=== PATIENT | male | born 1965 | race Caucasian/White ===

== ENCOUNTER 2019-08-21 00:41 | Inpatient (IN) ==
[2019-08-21] MEDS ORDERED: NS 1,000 ML IV ONE ×2 (01:00→03:07)
[2019-08-21] MEDS ORDERED: ATIVAN IV ONE (01:00)
[2019-08-21 02:15] LABS: URINE SOURCE CLEAN CATCH
[2019-08-21 02:22] LABS: BILIRUBIN URINE NEGATIVE (NEGATIVE); BLOOD URINE MODERATE (NEGATIVE); COLOR YELLOW; GLUCOSE URINE >1000 mg/dL (NEGATIVE); KETONE URINE 20 mg/dL (NEGATIVE); LEUKOCYTES URINE NEGATIVE (NEGATIVE); NITRITE URINE NEGATIVE (NEGATIVE); PH URINE 6.5; PROTEIN URINE 70 mg/dL (NEGATIVE); SP GRAVITY URINE 1.011; TURBIDITY URINE CLEAR (CLEAR); UROBILINOGEN URINE NORMAL (NORMAL)
[2019-08-21 02:24] LABS: UR EPITHELIAL CELLS <10 /HPF (<10); URINE BACTERIA NEGATIVE /HPF; URINE RBC 20-40 /HPF (<10); URINE WBC <10 /HPF (<10)
[2019-08-21 02:30] LABS: BASO# 0.02 X1000 (0.0-0.2); BASO% 0.2 % (0.0-0.8); EOS# 0.01 X1000 (0.0-0.7); EOS% 0.1 % (0.0-10.0); HEMATOCRIT 37.4 % (42.0-52.0); IMM GRAN# 0.02 X1000 (0.0-0.04); IMM GRAN% 0.2 % (0.0-0.5); LYMPH% 13.7 % (20.5-51.1); MCH 30.5 PG (27-31); MCHC 34.8 g/dL (33-37); MCV 87.8 FL (81-99); MONO# 1.14 X1000 (0.11-0.59); MONO% 9.8 % (1.7-9.3); MPV 9.3 FL (7.4-10.4); NEUT# 8.89 X1000 (1.4-6.5); PLT 248 X1000 (130-400); RBC 4.26 XMIL (4.7-6.1); RDW 11.9 % (11.5-14.5); WBC 11.68 X1000 (4.8-10.8)
[2019-08-21 02:34] LABS: INR 1.08; PROTIME 14.2 Seconds (11.0-16.0)
[2019-08-21 02:52] LABS: ESTIMATED GFR > 60
[2019-08-21 02:58] LABS: AGAP 25; ALB/GLOB RATIO 0.7; ALBUMIN 3.5 g/dL (3.5-5.0); ALKALINE PHOSPHATASE 255 U/L (32-122); BUN 4 mg/dL (8-22); CALCIUM 8.1 mg/dL (8.8-10.2); CHLORIDE 77 mmol/L (98-107); COSMO 250; CREATININE 0.7 mg/dL (0.7-1.2); GLUCOSE 289 mg/dL (70-104); GOT 69 U/L (10-34); GPT 30 U/L (10-44); LIPASE 19 U/L (13-60); POTASSIUM 3.8 mmol/L (3.5-5.1); TCO2 18 mmol/L (25-35); TOTAL BILIRUBIN 0.72 mg/dL (0.20-1.00); TOTAL PROTEIN 8.5 g/dL (6.3-8.3)
[2019-08-21 03:03] LABS: SODIUM 120 mmol/L (136-145)
[2019-08-21] MEDS ORDERED: HUMULIN R 100 UNIT in NS 99 ML IV ONE (03:56)
--- NOTE | 2019-08-21 05:06 | PROVIDER DOCUMENTATION ---
This chart was entered by Elsy Loja Scribe, acting as scribe for Audra Rodriguez MD. HPI-General Adult - General Stated Complaint: fall Time Seen by Provider: 08/21/19 00:47 Source: patient Allergies/Adverse Reactions: Patient Allergies Allergy/AdvReac Type Severity Reaction Status Date / Time No Known Allergies Allergy Verified 06/17/16 19:52 - History of Present Illness -Gen Adult Nature of Presenting Problems: pt is a 53 yowm that presents to er sts that he is an alcoholic and has had multiple falls, the most recent was yest and hit his head and ribs. pt has large healing bruise on left abd from fall a few days ago. pt sts he drinks 6-10 beers/day and last drink was this am and he feels like he is withdrawing. pt has hx of dm and htn. pt also c/o bladder/low abd pain. pt is a&ox3, answers questions appropriately but is shaky at bedside. denies loc. Location of Pain/Injury: reports: head, chest (ribs), upper extremity, abdomen Pain Radiation: reports: no radiation Severity: reports: mild Onset/Duration: reports: 24 hours ago Timing: reports: still present Context/Activities at Onset: reports: other Modifying Factors: improves with: nothing Review of Systems - Adult - REVIEW OF SYSTEMS - ADULT Constitutional: reports: no symptoms reported. denies: fever, fatique, night sweats Eyes: reports: no symptoms reported Ears, Nose, Mouth & Throat: reports: no symptoms reported Cardiovascular: reports: no symptoms reported Respiratory: reports: no symptoms reported Gastrointestinal: reports: see HPI, abdominal pain. denies: diarrhea, difficulty swallowing, frequent heartburn Genitourinary: reports: no symptoms reported Musculoskeletal: reports: see HPI, bone pain (rib pain), other (head pain). denies: frequent leg cramps, joint pain, joint swelling Integumentary: reports: no symptoms reported Neurological: reports: see HPI, loss of balance, other (shaky). denies: dizziness/vertigo, numbness, paresthesia, slurred speech, syncope Psychiatric: reports: see HPI, alcohol/drug dependence. denies: insomnia, panic attacks, suicidal thoughts Endocrine: reports: no symptoms reported Hematologic/Lymphatic: reports: no symptoms reported Allergic/Immunologic: reports: no symptoms reported All Other Systems: Reviewed and Negative Past History - Adult - PAST MEDICAL HISTORY-ADULT Review of Records: reports: Old Records Reviewed, Nursing Assessment Review, Medications Reviewed, Social history reviewed & non-contributory. Major Childhood Illnesses: reports: denies history Cardiovascular: reports: HTN Respiratory: reports: denies history Gastrointestinal: reports: denies history Obstetrical/Gynecological: reports: denies history Genitourinary: reports: denies history Musculoskeletal: reports: denies history Neurological: reports: Seizures/Epilepsy Endocrine/Immune: reports: Diabetes Other Conditions: reports: denies history - PRIOR SURGERIES/PROCEDURES Surgical/Procedure History: reports: orthopedic (extremity) - IMMUNIZATION STATUS Childhood Immunizations: See Nurse Assessment Flu Vaccine: See Nurse Assessment - FAMILY HISTORY Family History: reviewed, not pertinent - SOCIAL HISTORY Smoking: non-smoker Substance Use: alcohol Alcohol Use Frequency: every day Number of drinks per typical drinking period:: 5-10 drinks Physical Exam-General - PHYSICAL EXAM-ADULT Initial Vital Signs Reviewed: Yes - CONSTITUTIONAL General Appearance: alert, mild distress, other (tremulous and dishelved) - EYES Eyes: PERRL/EOMI, pink conjunctivae - HEAD, EARS, NOSE, MOUTH & THROAT HENMT: normocephalic/atraumatic, moist mucous membranes, normal ENT inspection - NECK Neck: non-tender, full range of motion, supple, normal inspection - RESPIRATORY Respiratory: chest non-tender, lungs clear, normal breath sounds - CARDIOVASCULAR Cardiovascular: normal peripheral pulses, regular rate, rhythm - GASTROINTESTINAL (ABDOMEN) Abdominal Exam: normal bowel sounds, soft, no organomegaly, no pulsatile mass, tenderness (to palp suprapubic), other (LLQ large healing bruise from prev fall) . 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 additional IVF given and insulin gtt started. Will admit for further evaluation and treatment. Discussed case with Dr. Rodriguez, Hospitalist who will see and admit pt.) - CT/MRI 1 CT Study: Head Impression: Normal (per radiologist read: "no acute intracranial findings") 2 CT Study: Abdomen, Pelvis Impression: Abnormal (per radiologist read: "heterogenous mostly hypodense mass within the prostate with bladder distention resulting in hydronephrosis, herterogenous sacrum neoplasm will require exclusion") Departure - Departure Date of Disposition Decision: 08/21/19 Time of Disposition Decision: 04:48 DIAGNOSIS: Alcoholic ketosis, Prostate mass, Hyponatremia Alcohol withdrawal Qualifiers: Complication of substance-induced condition: uncomplicated Qualified Code(s): F10.230 - Alcohol dependence with withdrawal, uncomplicated DKA (diabetic ketoacidoses) Qualifiers: Diabetes mellitus type: other specified (including JULIO) Diabetes mellitus complication detail: without coma Qualified Code(s): E13.10 - Other specified diabetes mellitus with ketoacidosis without coma Abdominal contusion Qualifiers: Encounter type: initial encounter Qualified Code(s): S30.1XXA - Contusion of abdominal wall, initial encounter Disposition: ADMITTED INPATIENT 09 Certified Medical Emergency: Emergent Condition: Fair - Critical Care Note This patient required my direct & personal management of CC.: No Attestation - Physician/ DERIC Attestation Patient care was provided by Advanced Practice Provider:: No The physician spent face to face time with patient:: Yes Advanced Practice Provider documentation review:: Supervising physician onsite and consulted in the evaluation and care of this patient. The physician did have a face to face encounter with the patient. This chart was documented by the indicated scribe, (Elsy Loja Scribe) and accurately reflects the services I performed and decisions made by me, Audra Rodriguez MD, as attested by the provider's signature.
[2019-08-21] MEDS ORDERED: ZOFRAN IV PRN ×2 (06:15→07:22)
[2019-08-21] MEDS ORDERED: POTASSIUM CHLORIDE 20% LIQUID PO PRN ×2 (06:15→07:22)
[2019-08-21] MEDS ORDERED: POTASSIUM CHLORIDE 20 MEQ/SWI 20 MEQ/100 ML IVPB IV PRN ×2 (06:15→07:22)
[2019-08-21] MEDS ORDERED: POTASSIUM CHLORIDE 40 MEQ/SWI 40 MEQ/100 ML IVPB IV PRN ×2 (06:15→07:22)
[2019-08-21] MEDS ORDERED: POTASSIUM CHLORIDE 10% LIQUID PO PRN (06:15)
[2019-08-21] MEDS ORDERED: D50W SYRINGE IV PRN ×2 (06:15→07:22)
[2019-08-21] MEDS ORDERED: MAGNESIUM SULFATE 2 GM/S.W.I. 2 GM/50 ML IVPB IV PRN (06:15)
[2019-08-21] MEDS ORDERED: NS 1,000 ML IV SCH (06:15)
[2019-08-21] MEDS ORDERED: SODIUM BICARBONATE 8.4% 100 MEQ in STERILE WATER INJ. 500 ML IV PRN (06:15)
[2019-08-21] MEDS ORDERED: SODIUM PHOSPHATE 30 MMOL in D5W 250 ML IV PRN (06:15)
[2019-08-21] MEDS ORDERED: D5 NS 1,000 ML IV SCH (06:15)
[2019-08-21] MEDS ORDERED: NS 1,000 ML ONE (06:20)
--- NOTE | 2019-08-21 06:26 | HISTORY AND PHYSICAL ---
PRIMARY CARE PHYSICIAN: Unknown. CHIEF COMPLAINT: Falling and not feeling well. HISTORY OF PRESENTING ILLNESS: A 53-year-old male with a history of chronic alcoholism, diabetes mellitus type 2, and hypertension, who had presented to emergency department with complaint of having multiple falls. He states that he usually drinks about 6 to 10 beers daily. His last drink was earlier in the morning. He states that he felt like he was having withdrawal symptoms. He was also complaining of lower abdominal pain. The patient was evaluated in the emergency department. He had laboratories drawn that did show possibility he had early DKA. He had elevated blood glucose, CO2 was low. He had ketones in the urine. Patient also had on imaging possibility of prostate mass. Due to his presenting symptoms, he will need admission for further management. The patient is a poor historian. However, he had denied any headache, fever, chills, chest pain, shortness of breath or any weight changes. He has complained of abdominal pain and not feeling well. PAST MEDICAL HISTORY: Include diabetes mellitus type 2 and hypertension. PAST SURGICAL HISTORY: None. ALLERGIES: No known drug allergies. CURRENT MEDICATIONS: She does not recall and the nursing staff will reconcile. SOCIAL HISTORY: No history of smoking. Admits to drinking alcohol daily. Denies any illicit drug use. FAMILY HISTORY: No history of coronary disease. REVIEW OF SYSTEMS: Fourteen point review of system as listed in HPI. Other systems negative. PHYSICAL EXAMINATION: GENERAL: Cooperative friendly male. He is resting more comfortably now. VITAL SIGNS: Pulse 121, respirations 22, and blood pressure 172/115. HEENT: Atraumatic, normocephalic. Extraocular movements are intact. PERRLA. NECK: No masses. CHEST: Clear to auscultation. CARDIOVASCULAR: Regular rate and rhythm. ABDOMEN: Soft. Bowel sounds has some suprapubic tenderness. EXTREMITIES: No edema. NEUROLOGIC: He is alert and oriented x3. : No bladder distention. SKIN: Warm. LABORATORIES AND STUDIES: Sodium 120, potassium 3.8, chloride 77, CO2 is 18. BUN is 4. Creatinine 0.7 glucose and 289. WBCs 11.68, hemoglobin 13.9, hematocrit 37.4, and platelets 248,000. Toxicology screen alcohol level of 248. ASSESSMENT: A 53-year-old male with a history of diabetes mellitus type 2 and hypertension, who had presented to emergency department due to complaint of frequent falls and not feeling well. He was evaluated in the emergency department. He was also complaining of abdominal discomfort. He had imaging done which did show the possibility of a prostate mass. Laboratories were consistent with early DKA. Subsequently, he will require admission for further management. 1. Suspected early DKA. 2. Possible alcohol withdrawals. 3. Abnormal CT showing prostate mass. 4. Diabetes mellitus type 2. 5. Hypertension. PLAN: 1. We will admit patient to ICU. 2. The patient already started on insulin drip per DKA protocol in the ED, and will continue that. 3. We will monitor for signs for withdrawal. 4. We will consult urology for evaluation of prostate mass. 5. Monitor blood pressure. Resume antihypertensive agent. 6. We will put patient on DVT prophylaxis with SCD's. 7. We will continue to follow and reassess and make further recommendation based on the patient's clinical course. cc: Socrates Rodriguez MD
--- NOTE | 2019-08-21 07:05 | Diag Imaging Result Doc PS360 ---
EXAM: CT HEAD W/O CONTRAST 08/21/2019 HISTORY: fall with alcohol abuse TECHNIQUE: This exam was performed using automated exposure control, adjustment of mA or kV according to patient size, and/or use of iterative reconstruction technique. COMMENT: There is a prominent cisterna magna. There are lacunae present in the right basal ganglia and both internal capsules. There is no evidence of bleed or abnormal extra-axial fluid collection. Compared to the previous examination of 06/24/2018 there has been no significant change. IMPRESSION: No evidence of acute intracranial disease. Electronically signed by Ashok Logan 08/21/2019 7:03 AM
[2019-08-21 07:07] LABS: ESTIMATED GFR > 60
[2019-08-21 07:08] LABS: AGAP 25; BUN 5 mg/dL (8-22); CALCIUM 8.1 mg/dL (8.8-10.2); CHLORIDE 81 mmol/L (98-107); COSMO 248; CREATININE 0.8 mg/dL (0.7-1.2); GLUCOSE 146 mg/dL (70-104); MAGNESIUM 1.5 mg/dL (1.5-2.7); PHOSPHORUS 2.2 mg/dL (2.7-4.5); POTASSIUM 3.6 mmol/L (3.5-5.1); SODIUM 123 mmol/L (136-145); TCO2 17 mmol/L (25-35)
[2019-08-21] MEDS ORDERED: HUMULIN R 100 UNIT in NS 100 ML IV SCH (07:22)
[2019-08-21] MEDS ORDERED: HUMULIN R IV ONE (07:22)
[2019-08-21] MEDS ORDERED: ATIVAN IV PRN (07:22)
[2019-08-21 08:10] LABS: URINE SOURCE CATH
[2019-08-21] MEDS: LIBRIUM PO SCH ×2 (08:13→15:02)
[2019-08-21] MEDS: D5 NS 1,000 ML IV PRN ×2 (08:14→15:02)
[2019-08-21] MEDS: REGLAN IV SCH ×3 (08:14→20:07)
--- NOTE | 2019-08-21 08:29 | Diag Imaging Result Doc PS360 ---
EXAM: CT ABD/PELVIS W/IV CONT ONLY 08/21/2019 HISTORY: fall with LLQ brusing and pain TECHNIQUE: This exam was performed using automated exposure control, adjustment of mA or kV according to patient size, and/or use of iterative reconstruction technique. COMMENT: There are no previous studies available for comparison. The liver is hypodense and slightly enlarged. The spleen is not enlarged. The adrenal glands are not enlarged. The aorta is not distended. There is no evidence of nephrolithiasis. There is bilateral hydronephrosis. The gallbladder is somewhat distended. There are no apparent gallstones. The pancreas is unremarkable. The aorta is not distended. The small bowel is not distended. There is some fluid along the anterior Gerota's fascia bilaterally. There is some diverticulosis in the descending colon. Pelvis: The urinary bladder is distended. There is no evidence of ureterolithiasis. There are abnormal fluid collections in the prostate particularly on the left where there is apparent cystic change measuring up to 2.7 cm. This may represent an abscess. The CT density is less than 6 Hounsfield units. There is stranding in the perirectal fat and presacral space. There is a small amount of free fluid in the lower portions of the paracolic gutters. There is sclerosis and coarsened trabecular pattern in the sacrum. No evidence of acute fracture is present. IMPRESSION: 1. Urinary tract obstruction, presumably at the level of the prostate. This may be related to prostatitis with abscess. 2. Hepatic steatosis versus steatohepatitis. 3. Bony changes in the sacrum which may be related to Paget's disease of bone. Electronically signed by Ashok Logan 08/21/2019 8:27 AM
[2019-08-21 08:32] LABS: ALLEN TEST YES; BLOOD TYPE ARTERIAL; METHB 0.9 % (0.0-1.5); MODALITY ROOM AIR; O2(CT) 17.2 mL/dL (15.0-23.0); PCO2(98.6) 25 mmHg (35-45); PO2(98.6) 79 mmHg (60-100); SAMPLE BLOOD; SAO2 98.3 % (95.0-100.0); THB 12.8 g/dL (11.5-17.4); pH(98.6) 7.45 (7.35-7.45)
[2019-08-21 08:35] LABS: BILIRUBIN URINE NEGATIVE (NEGATIVE); BLOOD URINE MODERATE (NEGATIVE); COLOR YELLOW; GLUCOSE URINE >1000 mg/dL (NEGATIVE); KETONE URINE 20 mg/dL (NEGATIVE); LEUKOCYTES URINE NEGATIVE (NEGATIVE); NITRITE URINE NEGATIVE (NEGATIVE); PH URINE 6.5; PROTEIN URINE 70 mg/dL (NEGATIVE); SP GRAVITY URINE 1.024; TURBIDITY URINE CLEAR (CLEAR); UR EPITHELIAL CELLS <10 /HPF (<10); URINE BACTERIA NEGATIVE /HPF; URINE RBC 20-40 /HPF (<10); URINE WBC <10 /HPF (<10); UROBILINOGEN URINE NORMAL (NORMAL)
[2019-08-21] MEDS ORDERED: HYDROCORTISONE 1% CREAM TOP PRN (08:42)
[2019-08-21] MEDS ORDERED: CALMOSEPTINE OINTMENT TOP PRN (08:42)
[2019-08-21] MEDS: NS 1,000 ML IV SCH ×3 (08:50→20:53)
[2019-08-21] MEDS: POTASSIUM CHLORIDE 10% LIQUID PO PRN ×3 (09:32→15:02)
[2019-08-21] MEDS: LOPRESSOR IV SCH ×3 (09:32→20:29)
[2019-08-21] MEDS: MAGNESIUM SULFATE 2 GM/S.W.I. 2 GM/50 ML IVPB IV PRN (09:32)
[2019-08-21] MEDS: MORPHINE IV PRN ×4 (11:09→23:36)
[2019-08-21] MEDS: TYLENOL PO PRN ×2 (11:33→20:42)
[2019-08-21 12:25] LABS: AGAP 23; BUN 6 mg/dL (8-22); CALCIUM 9.2 mg/dL (8.8-10.2); CHLORIDE 85 mmol/L (98-107); COSMO 260; CREATININE 0.8 mg/dL (0.7-1.2); ESTIMATED GFR > 60; GLUCOSE 259 mg/dL (70-104); MAGNESIUM 2.3 mg/dL (1.5-2.7); PHOSPHORUS 2.8 mg/dL (2.7-4.5); POTASSIUM 4.4 mmol/L (3.5-5.1); SODIUM 126 mmol/L (136-145); TCO2 18 mmol/L (25-35)
[2019-08-21 14:52] LABS: ESTIMATED GFR > 60
[2019-08-21 14:53] LABS: AGAP 17; BUN 7 mg/dL (8-22); CALCIUM 9.1 mg/dL (8.8-10.2); CHLORIDE 88 mmol/L (98-107); COSMO 261; CREATININE 0.9 mg/dL (0.7-1.2); GLUCOSE 306 mg/dL (70-104); MAGNESIUM 2.1 mg/dL (1.5-2.7); POTASSIUM 4.5 mmol/L (3.5-5.1); SODIUM 125 mmol/L (136-145); TCO2 20 mmol/L (25-35)
[2019-08-21] MEDS: APRESOLINE IV PRN (17:27)
[2019-08-21] MEDS: VASOTEC IV SCH (17:27)
[2019-08-21] MEDS: D5 NS 1,000 ML IV SCH ×2 (17:29→23:36)
[2019-08-21] MEDS: ATIVAN IV PRN (18:26)
[2019-08-21 19:05] LABS: AGAP 15; BUN 6 mg/dL (8-22); CALCIUM 9.5 mg/dL (8.8-10.2); CHLORIDE 91 mmol/L (98-107); COSMO 263; CREATININE 0.7 mg/dL (0.7-1.2); ESTIMATED GFR > 60; GLUCOSE 208 mg/dL (70-104); MAGNESIUM 1.9 mg/dL (1.5-2.7); POTASSIUM 4.1 mmol/L (3.5-5.1); SODIUM 129 mmol/L (136-145); TCO2 23 mmol/L (25-35)
[2019-08-21 22:57] LABS: AGAP 13; BUN 6 mg/dL (8-22); CALCIUM 9.2 mg/dL (8.8-10.2); CHLORIDE 94 mmol/L (98-107); COSMO 264; CREATININE 0.7 mg/dL (0.7-1.2); ESTIMATED GFR > 60; GLUCOSE 225 mg/dL (70-104); MAGNESIUM 1.7 mg/dL (1.5-2.7); PHOSPHORUS 1.7 mg/dL (2.7-4.5); POTASSIUM 3.6 mmol/L (3.5-5.1); SODIUM 129 mmol/L (136-145); TCO2 22 mmol/L (25-35)
[2019-08-22] MEDS: LIBRIUM PO SCH ×3 (00:31→17:33)
[2019-08-22 01:55] LABS: AGAP 15; BUN 6 mg/dL (8-22); CALCIUM 9.4 mg/dL (8.8-10.2); CHLORIDE 91 mmol/L (98-107); COSMO 265; CREATININE 0.7 mg/dL (0.7-1.2); ESTIMATED GFR > 60; GLUCOSE 213 mg/dL (70-104); MAGNESIUM 1.7 mg/dL (1.5-2.7); PHOSPHORUS 2.2 mg/dL (2.7-4.5); POTASSIUM 3.5 mmol/L (3.5-5.1); SODIUM 130 mmol/L (136-145); TCO2 24 mmol/L (25-35)
[2019-08-22] MEDS: LOPRESSOR IV SCH ×2 (02:14→08:03)
[2019-08-22] MEDS: REGLAN IV SCH ×2 (02:14→07:32)
[2019-08-22] MEDS: MAGNESIUM SULFATE 2 GM/S.W.I. 2 GM/50 ML IVPB IV PRN (03:06)
[2019-08-22] MEDS: NS 1,000 ML IV SCH ×4 (03:25→19:45)
[2019-08-22] MEDS: APRESOLINE IV PRN (03:31)
[2019-08-22] MEDS: VASOTEC IV SCH (05:13)
[2019-08-22] MEDS: D5 NS 1,000 ML IV SCH ×2 (05:14→10:03)
[2019-08-22] MEDS: MORPHINE IV PRN ×3 (05:31→20:44)
[2019-08-22 06:45] LABS: AGAP 17; BUN 5 mg/dL (8-22); CALCIUM 9.3 mg/dL (8.8-10.2); CHLORIDE 91 mmol/L (98-107); COSMO 266; CREATININE 0.6 mg/dL (0.7-1.2); ESTIMATED GFR > 60; GLUCOSE 212 mg/dL (70-104); MAGNESIUM 2.1 mg/dL (1.5-2.7); PHOSPHORUS 2.3 mg/dL (2.7-4.5); POTASSIUM 3.3 mmol/L (3.5-5.1); SODIUM 131 mmol/L (136-145); TCO2 23 mmol/L (25-35)
[2019-08-22] MEDS: POTASSIUM CHLORIDE 10% LIQUID PO PRN ×2 (07:32→11:55)
[2019-08-22 10:38] LABS: AGAP 15; BUN 5 mg/dL (8-22); CALCIUM 9.3 mg/dL (8.8-10.2); CHLORIDE 91 mmol/L (98-107); COSMO 265; CREATININE 0.6 mg/dL (0.7-1.2); ESTIMATED GFR > 60; GLUCOSE 222 mg/dL (70-104); MAGNESIUM 1.9 mg/dL (1.5-2.7); PHOSPHORUS 3.2 mg/dL (2.7-4.5); POTASSIUM 3.6 mmol/L (3.5-5.1); SODIUM 130 mmol/L (136-145); TCO2 24 mmol/L (25-35)
[2019-08-22] MEDS ORDERED: CATAPRES PO ONE (12:14)
[2019-08-22] MEDS ORDERED: LANTUS INSULIN SUBQ ONE (12:33)
--- NOTE | 2019-08-22 12:57 | PROGRESS NOTE ---
DATE: 08/22/2019 SUBJECTIVE: The patient is confused, but seems to be doing okay. No major complaints. OBJECTIVE: Vital Signs: Blood pressure is 149/85, heart rate of 95, respiratory rate 20, temperature 98.9 degrees, saturating 95% on room air. General: He has got plethora in his face. Overall seems to be tired and weak. Cardiovascular: Regular rate and rhythm. Pulmonary: Bilateral breath sounds. Clear to auscultation. GI: Soft, nontender, nondistended. Bowel sounds are positive. LABORATORY DATA: Sodium is 130 today. Sugar is 222, but the gap is only 15, and the bicarb is 24. I feel like his gap is closed at this point. PROBLEM LIST: 1. Diabetic ketoacidosis with apparently new-onset diabetes. We will continue treatment, take him off the drip, switch him to Lantus, and follow clinically. 2. Prostate enlargement with possible early abscess. He is not on any antibiotics, and Urology has been consulted. 3. Alcohol withdrawal syndrome. We will continue to follow closely. He is on a Librium taper. Seems to be stable at this point. Continue to follow. Supplement electrolytes, and monitor. 4. Disposition. I think if he is stable off blood sugars, we should be able to get him to the step-down unit. 5. Hypertension, which is uncontrolled, possibly related to withdrawal, but we will continue to follow. He is on a Librium taper. Will probably give him a banana bag, and monitor closely. cc: Richmond Gao MD
[2019-08-22] MEDS: PRINIVIL PO SCH (14:20)
[2019-08-22] MEDS: ZOSYN 3.375 GM in NS 50 ML IV SCH ×2 (14:21→19:45)
[2019-08-22] MEDS: HUMULIN R SUBQ SCH ×2 (16:20→20:44)
[2019-08-22] MEDS: FLOMAX PO SCH (20:44)
[2019-08-22] MEDS: CATAPRES PO SCH (20:44)
--- NOTE | 2019-08-22 22:29 | CONSULTATION ---
DATE OF CONSULTATION: 08/22/2019 REQUESTING PHYSICIAN: Richmond Gao MD, hospitalist service. REASON FOR CONSULTATION: Prostate mass. HISTORY OF PRESENT ILLNESS: A 53-year-old male who was admitted with frequent falls, feeling unwell, with a diagnosis of diabetic ketoacidosis as well as alcohol withdrawal. In the process of workup, he had a CT scan of the abdomen and pelvis on 08/21/2019, which revealed bilateral hydronephrosis to the level of the prostate and prostate appearance with a couple of fluid collections concerning for abscess. The patient reports occasional hesitancy and weak stream as well as nocturia x1-2 for months prior to the presentation. For approximately a week to two prior to presentation, he reports increased frequency of urination as well as weaker urinary stream. He currently feels comfortable, as he has Kelly catheter draining light pink urine without clots. He denies having seen a urologist. He denies history of UTIs or prostatitis. He denies gross hematuria, dysuria or flank pain prior to presentation. PAST MEDICAL HISTORY: Diabetes mellitus, hypertension. PAST SURGICAL HISTORY: None. ALLERGIES: No known drug allergies. MEDICATIONS: Home medications: None on file. Current medications of pertinence include insulin and Zosyn. SOCIAL HISTORY: Denies smoking or illicit drugs. He drinks alcohol daily. FAMILY HISTORY: Negative for prostate cancer. REVIEW OF SYSTEMS: Reviewed and 12 systems negative except as per the HPI. PHYSICAL EXAMINATION: T 98.5 degrees, P 99, BP 127/76. General: No acute distress. Pleasant male.HEENT: Normocephalic, atraumatic. Cardiovascular: Regular rate and rhythm. Pulmonary: Bilateral breath sounds. Abdomen soft, nontender, nondistended. Back: No CVA tenderness. : Circumcised phallus, normal meatus. Kelly catheter in place draining pink colored urine. Testes descended bilaterally, atrophic. No masses present. No evidence of inguinal hernias noted bilaterally. Perineum with structural integrity intact. Digital rectal examination revealing smooth approximately 40 g prostate, mildly tender to palpation but not boggy, and no discrete nodules noted. Dermatologic: No obvious skin rashes. Neurologic: Alert and oriented x3. Psychiatric: Appropriate mood and affect. LABORATORY DATA: White cell count is 12,000. Creatinine is 0.6. Urinalysis is negative for bacteria. DIAGNOSTIC DATA: Pertinent images: CT abdomen and pelvis per HPI. ASSESSMENT AND PLAN: A 53-year-old male who presented with diabetic ketoacidosis, alcohol withdrawal and hypertension. In the process he was found to have urinary retention with bilateral hydronephrosis, and imaging by CT scan concerning for possible prostatic abscess. Upon examination, I did not appreciate fluctuance consistent with abscess. He was appropriately tender. I have discussed with the patient that he would benefit from antibiotic for 4 weeks that would cover prostatic pathogens which would be the same as urinary tract pathogens. I have discussed with him that he would benefit from Flomax 0.4 mg twice a day. It is certainly reasonable to perform voiding trial and remove Kelly catheter prior to him leaving. We can also recheck renal ultrasound in approximately 3 days to see if his hydronephrosis has improved. I have discussed with him that if he passes voiding trial and does well, a month of antibiotics may help his prostatic issues, and if he does not improve or not able to pass voiding trial, we would consider transurethral resection and drainage of the abscess. PLAN: 1. Flomax 0.4 mg twice a day. 2. He is currently on Zosyn. When primary team is comfortable, it is okay to transition to oral antibiotics that would cover urinary pathogens, such as Bactrim, fluoroquinolone or doxycycline. 3. Okay to try a voiding trial in 2-3 days for recommended renal ultrasound in 3 days to document resolution and improvement in hydronephrosis. 4. If he does well from his diabetes, hypertension and alcohol withdrawal standpoint, and ready for discharge I would plan on seeing him in clinic in 4 weeks with digital rectal examination, postvoid residual check and PSA check. Thank you for the consultation. cc: Daniel Arthur MD
[2019-08-23] MEDS: LIBRIUM PO SCH ×4 (00:16→20:57)
[2019-08-23] MEDS: MORPHINE IV PRN ×5 (00:17→17:31)
[2019-08-23] MEDS: ZOSYN 3.375 GM in NS 50 ML IV SCH ×4 (01:38→20:32)
[2019-08-23] MEDS: TYLENOL PO PRN ×2 (03:36→11:34)
[2019-08-23 06:30] LABS: BASO# 0.03 X1000 (0.0-0.2); BASO% 0.5 % (0.0-0.8); EOS# 0.09 X1000 (0.0-0.7); EOS% 1.5 % (0.0-10.0); HEMATOCRIT 35.4 % (42.0-52.0); HEMOGLOBIN 11.7 g/dL (14.0-18.0); LYMPH# 1.13 X1000 (1.2-3.4); LYMPH% 18.8 % (20.5-51.1); MCH 30.6 PG (27-31); MCHC 33.1 g/dL (33-37); MCV 92.7 FL (81-99); MONO# 0.67 X1000 (0.11-0.59); MONO% 11.2 % (1.7-9.3); NEUT# 4.08 X1000 (1.4-6.5); PLT 113 X1000 (130-400); RBC 3.82 XMIL (4.7-6.1); RDW 12.4 % (11.5-14.5)
[2019-08-23] MEDS: HUMULIN R SUBQ SCH ×2 (06:33→11:28)
[2019-08-23 07:04] LABS: AGAP 17; BUN 6 mg/dL (8-22); CALCIUM 8.9 mg/dL (8.8-10.2); CHLORIDE 90 mmol/L (98-107); COSMO 262; CREATININE 0.6 mg/dL (0.7-1.2); ESTIMATED GFR > 60; GLUCOSE 227 mg/dL (70-104); POTASSIUM 3.4 mmol/L (3.5-5.1); SODIUM 128 mmol/L (136-145); TCO2 21 mmol/L (25-35)
[2019-08-23 07:23] LABS: HEMOGLOBIN A1C 10.1 % (4.8-6.0)
[2019-08-23] MEDS: CATAPRES PO SCH ×3 (08:03→17:04)
[2019-08-23] MEDS: PRINIVIL PO SCH (08:03)
[2019-08-23] MEDS: FLOMAX PO SCH ×2 (08:04→20:58)
[2019-08-23] MEDS: NS 1,000 ML IV SCH (08:18)
[2019-08-23] MEDS: ATIVAN IV PRN ×3 (08:35→22:09)
[2019-08-23] MEDS ORDERED: LANTUS INSULIN SUBQ SCH (09:00)
[2019-08-23] MEDS ORDERED: LANTUS INSULIN SUBQ ONE (09:54)
[2019-08-23] MEDS ORDERED: VANCOMYCIN IV PER PHARMACY MISC SCH (11:45)
--- NOTE | 2019-08-23 12:47 | Diag Imaging Result Doc PS360 ---
CHEST-PORTABLE - 08/23/2019 INDICATION: fever COMPARISON: 07/23/2018 FINDINGS: Lung volumes are critically low with nonspecific bibasilar atelectasis. IMPRESSION: Nondiagnostic exam. Electronically signed by Jacinto Avila 08/23/2019 12:45 PM
[2019-08-23] MEDS: VANCOMYCIN 2,000 MG in NS 500 ML IV SCH (12:54)
--- NOTE | 2019-08-23 14:11 | PROGRESS NOTE ---
DATE: 08/23/2019 SUBJECTIVE: The patient has no major complaints. OBJECTIVE: Blood pressure 180/127, heart rate 133, respiratory rate of 34, temperature was a 100.2 degrees. PROBLEM LIST: 1. Diabetic ketoacidosis that has resolved. He is on Lantus and metformin. Sugars are still very high. A1c is 10. We will continue to adjust medications. I have added metformin to his regimen. 2. Prostatitis. He is on Zosyn. Urology is not recommending any intervention at this point, but he does have persistent fevers. I have added vancomycin just for more coverage. 3. Alcohol withdrawal syndrome. He is still very tremulous. He is still very tachycardic. He is still very hypertensive. We will continue Librium and follow closely. 4. Uncontrolled hypertension. I have increased his clonidine probably need to increase his lisinopril, as well and follow closely. I have initiated a banana bag as well. DISPOSITION: Pending his clinical status, he is probably safe enough to go to the [facility] once his blood pressure stabilizes a bit more. cc: Richmond Gao MD
[2019-08-23] MEDS: HUMALOG SUBQ SCH ×2 (16:50→20:33)
[2019-08-23] MEDS: THIAMINE 100 MG, FOLIC ACID 1 MG, M.V.I.-12 10 ML in NS 500 ML IV SCH (17:03)
[2019-08-23] MEDS: GLUCOPHAGE PO SCH (17:03)
[2019-08-23] MEDS: LOPRESSOR IV PRN (18:18)
[2019-08-23 21:13] LABS: BE 1.6 mmoll (-3.0-3.0); BLOOD TYPE ARTERIAL; METHB 1.3 % (0.0-1.5); O2HB 91.6 % (95.0-99.0); PCO2(98.6) 27 mmHg (35-45); PO2(98.6) 58 mmHg (60-100); SAMPLE BLOOD; SAO2 94.9 % (95.0-100.0); THB 13.2 g/dL (11.5-17.4); pH(98.6) 7.54 (7.35-7.45)
[2019-08-23 21:14] LABS: ALLEN TEST YES; MODALITY CANNULA
[2019-08-23] MEDS: TYLENOL PR ONE (21:38)
[2019-08-23 22:19] LABS: BASO# 0.02 X1000 (0.0-0.2); BASO% 0.3 % (0.0-0.8); HEMATOCRIT 38.7 % (42.0-52.0); HEMOGLOBIN 12.8 g/dL (14.0-18.0); IMM GRAN# 0.03 X1000 (0.0-0.04); IMM GRAN% 0.4 % (0.0-0.5); LYMPH# 0.68 X1000 (1.2-3.4); LYMPH% 9.7 % (20.5-51.1); MCH 30.6 PG (27-31); MCHC 33.1 g/dL (33-37); MCV 92.6 FL (81-99); MONO# 0.43 X1000 (0.11-0.59); MONO% 6.2 % (1.7-9.3); MPV 9.8 FL (7.4-10.4); NEUT# 5.83 X1000 (1.4-6.5); NEUT% 83.4 % (42.2-75.2); PLT 141 X1000 (130-400); RBC 4.18 XMIL (4.7-6.1); RDW 12.5 % (11.5-14.5); WBC 6.99 X1000 (4.8-10.8)
[2019-08-23 22:27] LABS: INR 1.37; PROTIME 17.1 Seconds (11.0-16.0)
[2019-08-23 22:28] LABS: PTT 37.9 Seconds (22.3-41.8)
[2019-08-23 22:57] LABS: URINE SOURCE CATH
[2019-08-23 23:02] LABS: AGAP 17; ALB/GLOB RATIO 0.8; ALKALINE PHOSPHATASE 189 U/L (32-122); BUN 9 mg/dL (8-22); CALCIUM 8.6 mg/dL (8.8-10.2); CHLORIDE 90 mmol/L (98-107); CK PROFILE 73 U/L (24-204); COSMO 263; CREATININE 0.8 mg/dL (0.7-1.2); ESTIMATED GFR > 60; GLUCOSE 193 mg/dL (70-104); GOT 93 U/L (10-34); GPT 32 U/L (10-44); POTASSIUM 3.1 mmol/L (3.5-5.1); SODIUM 129 mmol/L (136-145); TCO2 22 mmol/L (25-35); TOTAL BILIRUBIN 1.13 mg/dL (0.20-1.00); TOTAL PROTEIN 6.9 g/dL (6.3-8.3)
[2019-08-23 23:20] LABS: BILIRUBIN URINE NEGATIVE (NEGATIVE); BLOOD URINE LARGE (NEGATIVE); COLOR YELLOW; GLUCOSE URINE TRACE mg/dL (NEGATIVE); KETONE URINE TRACE mg/dL (NEGATIVE); TURBIDITY URINE HAZY (CLEAR)
[2019-08-23 23:21] LABS: LEUKOCYTES URINE NEGATIVE (NEGATIVE); NITRITE URINE NEGATIVE (NEGATIVE); PROTEIN URINE 70 mg/dL (NEGATIVE); UROBILINOGEN URINE NORMAL (NORMAL)
[2019-08-23 23:22] LABS: UR EPITHELIAL CELLS <10 /HPF (<10); URINE BACTERIA NEGATIVE /HPF
[2019-08-23 23:35] LABS: URINE CASTS NONE SEEN; URINE CRYSTALS NONE SEEN; URINE SMALL ROUND CELLS NONE SEEN; URINE YEAST PRESENT
[2019-08-24] MEDS: LOPRESSOR IV PRN ×2 (00:15→08:04)
[2019-08-24] MEDS: ATIVAN IV PRN ×2 (00:19→02:25)
[2019-08-24] MEDS: VANCOMYCIN 2,000 MG in NS 500 ML IV SCH ×2 (00:54→13:32)
[2019-08-24] MEDS: MORPHINE IV PRN ×5 (00:55→19:56)
[2019-08-24] MEDS: ZOSYN 3.375 GM in NS 50 ML IV SCH ×2 (01:44→08:00)
[2019-08-24] MEDS: LIBRIUM PO SCH ×2 (02:25→08:12)
[2019-08-24] MEDS: OFIRMEV 1000 MG/ISOTONIC SOLN 1,000 MG/100 ML BOTTLE IV PRN ×2 (02:57→09:17)
[2019-08-24 04:27] LABS: BASO# 0.02 X1000 (0.0-0.2); BASO% 0.3 % (0.0-0.8); HEMATOCRIT 35.6 % (42.0-52.0); HEMOGLOBIN 11.7 g/dL (14.0-18.0); LYMPH# 0.25 X1000 (1.2-3.4); LYMPH% 3.6 % (20.5-51.1); MCH 30.7 PG (27-31); MCHC 32.9 g/dL (33-37); MCV 93.4 FL (81-99); MONO% 7.1 % (1.7-9.3); MPV 9.9 FL (7.4-10.4); NEUT# 6.24 X1000 (1.4-6.5); PLT 110 X1000 (130-400); RBC 3.81 XMIL (4.7-6.1); RDW 12.6 % (11.5-14.5); WBC 7.01 X1000 (4.8-10.8)
[2019-08-24 04:53] LABS: LYMPHS 3 % (21-51); MONO 8 % (1-9); SEGS 89 % (42-75)
[2019-08-24 05:39] LABS: AGAP 18; BUN 11 mg/dL (8-22); CHLORIDE 95 mmol/L (98-107); COSMO 267; CREATININE 0.7 mg/dL (0.7-1.2); ESTIMATED GFR > 60; GLUCOSE 157 mg/dL (70-104); POTASSIUM 2.6 mmol/L (3.5-5.1); SODIUM 132 mmol/L (136-145); TCO2 19 mmol/L (25-35)
[2019-08-24] MEDS ORDERED: MAGNESIUM SULFATE 4 GM/S.W.I. 4 GM/100 ML IVPB IV ONE (05:49)
[2019-08-24] MEDS ORDERED: NS 50 ML ONE (06:27)
[2019-08-24] MEDS: HUMALOG SUBQ SCH ×4 (06:30→20:41)
--- NOTE | 2019-08-24 07:07 | Diag Imaging Result Doc PS360 ---
EXAM: CHEST-PORTABLE 08/23/2019 HISTORY: poss sepsis TECHNIQUE: AP portable upright at 2214 COMMENT: The inspiration is suboptimal. There is subsegmental atelectasis over the right hemidiaphragm which was also present on 08/23/2019. Otherwise are has been no significant change. IMPRESSION: Right basilar atelectasis. Electronically signed by Ashok Logan 08/24/2019 7:05 AM
[2019-08-24] MEDS ORDERED: POTASSIUM CHLORIDE 60 MEQ in NS 500 ML IV ONE (07:35)
[2019-08-24] MEDS: PRINIVIL PO SCH (08:01)
[2019-08-24] MEDS: CATAPRES PO SCH (08:01)
[2019-08-24] MEDS: FLOMAX PO SCH ×2 (08:01→20:41)
[2019-08-24] MEDS: GLUCOPHAGE PO SCH ×2 (08:12→16:53)
[2019-08-24] MEDS: LANTUS INSULIN SUBQ SCH (08:12)
[2019-08-24] MEDS ORDERED: LIORESAL PO SCH (09:00)
[2019-08-24] MEDS ORDERED: NS 1,000 ML IV ONE ×2 (10:10→14:59)
[2019-08-24] MEDS: NS 1,000 ML IV SCH ×2 (10:22→19:37)
[2019-08-24] MEDS: MERREM 1 GM in NS 50 ML IV SCH ×2 (10:26→19:34)
[2019-08-24] MEDS: LEVOPHED 8 MG in D5 1/2 NS 250 ML IV SCH ×2 (10:30→20:56)
--- NOTE | 2019-08-24 12:00 | PROGRESS NOTE ---
DATE: 08/24/2019 SUBJECTIVE: Patient is definitely more confused. Apparently, it was felt that the liver was causing this so that medication has been held since last night. Upon my examination, he continues to be lethargic, does not answer any questions just to painful stimuli. OBJECTIVE: Vital Signs: Temperature 101.8 degrees, heart rate 80, respiratory rate 17 blood pressure 104/64. O2 saturation 98% on 4 L nasal cannula. General: This is a chronically ill- appearing 53-year-old male, lying in bed in no acute distress. Cardiovascular: S1, S2 heard. No murmurs, gallops, or rubs. Regular rate and rhythm. Respiratory: Clear bilaterally to auscultation. No work of breathing or using accessory muscles. Abdomen: Soft. Nontender to palpation. Bowel sounds present. No organomegaly. Extremities: No clubbing, cyanosis, or edema. Peripheral pulses present in both legs. Neurological: Patient is alert and oriented x3 moves. No clubbing cyanosis or edema. Peripheral pulses present in both legs. The patient is lethargic. Apparently, he moves all 4 extremities. LABORATORY DATA: White cell count 7.01, hemoglobin 11.7, hematocrit 35.6 and platelets 110,000. BMP that reveals potassium. 2.6 sodium 132, normal renal function. Glucose 157. Magnesium 1.0. ASSESSMENT AND PLAN: 1. Diabetic ketoacidosis. That condition is resolved. Currently, this patient is on Lantus and metformin. We will continue with sliding scale insulin as well. 2. Prostatitis. The patient has been on Zosyn for the last few days for pneumonia, but because patient is still having persistent fever, I am going to change Zosyn for meropenem. 3. Alcohol withdrawal syndrome. The patient has been very sleepy with Levaquin that he has been receiving so at this point, that has been stopped, and will start baclofen as well once he is more stable. 4. Hypertension now. With the current medication, it is much better controlled. We will continue with same management. 5. Disposition. At this point, we will continue to monitor this patient closely in intensive care unit. cc: MD NIKKI Multani
[2019-08-24] MEDS: LIORESAL PO SCH ×2 (14:25→22:25)
[2019-08-24] MEDS: THIAMINE 100 MG, FOLIC ACID 1 MG, M.V.I.-12 10 ML in NS 500 ML IV SCH ×2 (16:06→16:47)
--- NOTE | 2019-08-24 21:29 | Diag Imaging Result Doc PS360 ---
EXAM: CT THORAX W/CONTRAST 08/24/2019 HISTORY: pneumonia TECHNIQUE: This exam was performed using automated exposure control, adjustment of mA or kV according to patient size, and/or use of iterative reconstruction technique. COMMENT: There are bilateral pleural effusions. There is atelectasis in the lower lobes particularly the right lower lobe. This was not present at the time the abdominal study of 08/21/2019. There our no previous thoracic studies. There is ascites which was not present at the time the previous study. There are calcifications in the left anterior descending coronary artery. The visualized skeleton is intact. IMPRESSION: There is atelectasis or pneumonia in the right lower lobe and atelectasis in the left posterior costophrenic sulcus. Pleural effusions and ascites. Electronically signed by Ashok Logan 08/24/2019 9:27 PM
[2019-08-25] MEDS: OFIRMEV 1000 MG/ISOTONIC SOLN 1,000 MG/100 ML BOTTLE IV PRN ×3 (00:17→21:55)
[2019-08-25] MEDS: VANCOMYCIN 2,000 MG in NS 500 ML IV SCH (01:00)
[2019-08-25] MEDS: MERREM 1 GM in NS 50 ML IV SCH ×2 (02:08→11:07)
[2019-08-25] MEDS: NS 1,000 ML IV SCH ×2 (03:17→07:21)
[2019-08-25] MEDS: MORPHINE IV PRN (04:10)
[2019-08-25] MEDS: BLISTEX MEDICATED BERRY LIP BALM TOP PRN (05:38)
[2019-08-25 05:56] LABS: BASO# 0.02 X1000 (0.0-0.2); BASO% 0.2 % (0.0-0.8); EOS# 0.03 X1000 (0.0-0.7); EOS% 0.3 % (0.0-10.0); HEMATOCRIT 40.7 % (42.0-52.0); HEMOGLOBIN 13.1 g/dL (14.0-18.0); IMM GRAN# 0.19 X1000 (0.0-0.04); LYMPH# 1.45 X1000 (1.2-3.4); LYMPH% 15.1 % (20.5-51.1); MCH 30.3 PG (27-31); MCHC 32.2 g/dL (33-37); MCV 94.2 FL (81-99); MONO# 1.29 X1000 (0.11-0.59); MONO% 13.4 % (1.7-9.3); MPV 10.5 FL (7.4-10.4); NEUT# 6.63 X1000 (1.4-6.5); PLT 138 X1000 (130-400); RBC 4.32 XMIL (4.7-6.1); RDW 13.1 % (11.5-14.5); WBC 9.61 X1000 (4.8-10.8)
[2019-08-25] MEDS: LOPRESSOR IV PRN (06:06)
[2019-08-25] MEDS: LIORESAL PO SCH ×3 (06:07→21:11)
[2019-08-25] MEDS: HUMALOG SUBQ SCH ×4 (06:07→21:08)
[2019-08-25 06:10] LABS: ALBUMIN 2.3 g/dL (3.5-5.0); CALCIUM 8.1 mg/dL (8.8-10.2); CREATININE 1.8 mg/dL (0.7-1.2); MAGNESIUM 2.1 mg/dL (1.5-2.7); PHOSPHORUS 5.3 mg/dL (2.7-4.5); POTASSIUM 3.6 mmol/L (3.5-5.1)
[2019-08-25] MEDS: ATIVAN IV PRN ×2 (06:24→21:09)
[2019-08-25 06:58] LABS: LYMPHS 18 % (21-51); MONO 13 % (1-9); SEGS 69 % (42-75)
[2019-08-25] MEDS: LANTUS INSULIN SUBQ SCH (08:37)
[2019-08-25] MEDS: FLOMAX PO SCH ×2 (08:48→21:14)
[2019-08-25] MEDS: GLUCOPHAGE PO SCH (08:48)
[2019-08-25] MEDS ORDERED: CLINIMIX E 4.25%-5% SOLUTION 1,000 ML IV SCH (10:00)
[2019-08-25] MEDS: LIPOSYN 20% 250 ML IV SCH (11:06)
--- NOTE | 2019-08-25 11:49 | PROGRESS NOTE ---
DATE: 08/25/2019 SUBJECTIVE: The patient is a little bit less confused today. He is awake. He reports that he is feeling very cold. Denies any chills. Reports fevers. No acute issues noted as per nursing staff overnight. OBJECTIVE: Vital Signs: Temperature 98 degrees, heart rate 138, respiratory rate 22, blood pressure 125/66 O2 saturation 97% on 4 L nasal cannula. General: This is a chronically ill- appearing 53-year-old male lying in bed in no acute distress. Very shaky and febrile. Cardiovascular: S1, S2 heard. Tachycardic but no murmurs, gallops, or rubs noted. Respiratory: Some coarse breath sounds noted in the right pulmonary base. Patient is not using any accessory muscles or having work of breathing. Abdomen: Soft. Nontender to palpation. Bowel sounds present. No organomegaly. Extremities: No clubbing, cyanosis, or edema. Peripheral pulses are present in both legs. Neurological: Patient is a little bit more awake today in comparing with yesterday. He answered basic questions. He follows basic commands. He moves all 4 extremities spontaneously. LABORATORY DATA: White cell count 9.61, hemoglobin 13.1, hematocrit 40.7 and platelets 138,000. Sodium 132, potassium 3.6, creatinine 1.8, BUN 25, with magnesium 2.1 and phosphorus 5.3. ASSESSMENT AND PLAN: 1. Diabetic ketoacidosis. That condition is resolved. Patient is on Lantus and sliding scale insulin. Because of his acute renal failure noted in his labs, metformin will be stopped. Actually, he has not had these medications for the last 24 hours because he was not able to take anything by mouth. 2. Prostatitis versus prostate abscess. The patient is going to be taken to OR as per Urology. The patient is very sick and became septic. The blood cultures revealed MRSE bacteremia. The patient is on vancomycin but because of the renal dysfunction, we are going to consult Dr. Camargo. Most likely, we will change to daptomycin. He is already on Merrem 3. Acute kidney injury. During the last 48 hours, patient has been having low urine output. His renal function today is 1.8. The in's and out's in the last 24 hours indicates 295 mL of urine in the last 24 hours. At this point, we are going to consult renal, and we will see what they think. 4. Alcohol withdrawal syndrome. Patient has been on the Librium but, this medication has been stopped yesterday because this patient was very sleepy. Instead, we are providing baclofen for this patient. Apparently, he is tolerating them very well. He is more awake today. 5. Hypertension. Actually, the patient has low blood pressure so we started him on normal saline 150 mL per hour. We will continue with the same management. 6. MRSE bacteremia. As we mentioned before, the patient is on vancomycin. We may need to change this medication considering his worsening renal failure and oliguria. We will see what ID Dr. Jagjit Camargo has to say. 7. Right lower lobe atelectasis versus pneumonia. Patient is on antibiotics as above. The patient also has ascites. Patient has history of chronic alcoholism. We will continue to monitor. 7. Disposition. The patient is going to be taken to OR this afternoon. The patient is very sick. We will continue to monitor. cc: Cristo Henry MD MTDD
[2019-08-25] MEDS: CUBICIN 600 MG in NS 100 ML IV SCH (15:08)
[2019-08-25] MEDS: ZYVOX 600 MG/D5W 600 MG/300 ML IVPB IV SCH (16:09)
--- NOTE | 2019-08-25 17:37 | PROGRESS NOTE ---
DATE: 08/25/2019 SUBJECTIVE: Mr. Gauthier is resting in bed on rounds. He did not communicate back to me upon several inquiries. OBJECTIVE: Vital Signs: T 101 degrees, P 135, BP 114/82. General: Noncommunicating male in no apparent distress. Abdomen: Nontender, nondistended. Genitourinary: Kelly catheter in place with straw-colored urine. PERTINENT LABORATORY DATA: White cell count of 10,000. Creatinine is 1.8 up from 0.7. His urine culture from 08/23/2019 showing no growth. Urine culture from 08/21/2019 showed no growth. ASSESSMENT/PLAN: 53-year-old male, admitted with diabetic ketoacidosis and alcohol withdrawal with CT imaging revealing concern for prostatic abscess. Upon my original exam, he did not have evidence of boggy prostate concerning for prostatitis or abscess. I have discussed the patient with Dr. Holley over the phone and we at 1st felt that his prostate was the most likely reason for him having spiked fevers up to 105. I actually had him on the schedule today for cystoscopy with transurethral resection of prostatic abscess. I was subsequently contacted by Dr. Camargo who evaluated the patient. He gave examined him as well and agreed with me that there was no obvious evidence of fluctuance on the digital rectal examination. He does have evidence of pneumonia by CT scan. Me and Dr. Camargo agreed that he has other reasons for fevers then prostatic abscess. Hence, I have elected to cancel the case at this time while Mr. Gauthier gets more stable. PLAN: 1. Continue broad-spectrum antibiotics. 2. Keep Kelly catheter gravity drainage for now. 3. We will follow the patient clinically. cc: Daniel Arthur MD
--- NOTE | 2019-08-25 17:54 | INFECTIOUS DISEASE CONSULT REP ---
DATE: 08/25/2019 CONCLUSION: Patient has a methicillin-resistant Staphylococcus aureus. I think this arose from a methicillin-resistant Staphylococcus aureus pneumonia. I doubt that it is coming from the urinary tract for a couple of reasons. One, on exam the patient's prostate does not seem to be tender or fluctuant. Two, the patient's urine cultures negative. His CT scan though did bring up the possibility of prostatitis or prostate abscess, another reason that I think the methicillin- resistant Staphylococcus aureus bacteremia arose from the lung and not from the genitourinary area because, in my experience, it has been very unusual to see Staphylococcus aureus urinary tract infection or Staphylococcus aureus prostate infection. RECOMMENDATIONS: I agree with discontinuing vancomycin because the patient's creatinine is going up. I have put the patient on daptomycin to treat the bacteremia and Zyvox to treat the possible methicillin-resistant Staphylococcus aureus pneumonia. DISCUSSION: The patient is unable provide a history. He is delirious. According to the information in the computer, the patient came in, falling over and not feeling good. He developed diabetic ketoacidosis. The patient's CBC shows a white count of 9610, hemoglobin 13.1, and platelet count 138,000. Creatinine is 1.8. GFR is 39. Chest x-ray shows bibasilar atelectasis/pneumonia. CT scan of the abdomen and pelvis shows urinary tract obstruction, possibly secondary to prostatitis or prostate abscess. CT scan of the head showed no acute disease. PAST MEDICAL HISTORY: Positive for diabetes mellitus and hypertension. PAST SURGICAL HISTORY: None. DRUG ALLERGIES: None known. MEDICATIONS: There are there are no medications taken at home listed currently. SOCIAL HISTORY: The patient is an alcoholic. He has no history of smoking or using illicit drugs. FAMILY HISTORY: No history of coronary artery disease. REVIEW OF SYSTEMS: Unable to be obtained. PHYSICAL EXAMINATION: Vital Signs: Temperature is 101.4 degrees, pulse 103, respirations 18, blood pressure 96/66. General: This is an ill-appearing, middle-aged male. He is delirious. Head/eyes/ears/nose/throat: He does not have any drainage coming from his nose or ears. I did not get a good look into his mouth. His face was flushing. His face was erythematous. Neck: No meningismus. Lungs: Clear to auscultation. Cardiovascular: Heart rate is regular. Abdomen: Soft and not tender. Rectal Exam: The prostate was flat. It was not fluctuant and it did not seem to be tender. Neurologic: The patient is delirious. He did not respond to verbal requests. The patient was not having a tremor. Thank you for the consult. cc: Jagjit Camargo MD
[2019-08-25] MEDS: THIAMINE 100 MG, FOLIC ACID 1 MG, M.V.I.-12 10 ML in NS 500 ML IV SCH (18:25)
[2019-08-25] MEDS: CLINIMIX E 4.25%-5% SOLUTION 1,000 ML IV SCH ×2 (18:30→21:57)
[2019-08-25] MEDS: DUONEB (A & A) INH SCH ×2 (22:09→23:18)
--- NOTE | 2019-08-25 22:21 | NEPHROLOGY CONSULTATION ---
DATE: 08/25/2019 REASON FOR CONSULTATION: Acute kidney injury. HISTORY OF PRESENT ILLNESS: Mr. Gauthier is a 53-year-old man with alcoholism, diabetes and obesity. He came to the hospital because of DKA and evidence of sepsis. He has been evaluated by Urology for possible prostate abscess. He has also been in the ICU receiving aggressive multidisciplinary care for sepsis. In this context, he has been dealing with significant hypotension that has required vasopressor support. His antibiotics have included Zyvox and Cubicin. He is also receiving Clinimix and Liposyn. In this context he required CT of the chest yesterday which included IV contrast. He had normal renal function with creatinine 0.7 as recently as yesterday, today 1.8. Urine output has also dropped off in the last 24 hours. PAST MEDICAL HISTORY: As above. MEDICATIONS: Reviewed as listed. ALLERGIES: None. SOCIAL HISTORY: As above. FAMILY HISTORY: Noncontributory. REVIEW OF SYSTEMS: Noncontributory. PHYSICAL EXAMINATION: Blood pressure 138/79, heart rate 113, respirations 15. Afebrile. Generally comatose, hard to arouse. I did not get any words from him. Conjunctivae are pink. Oropharynx not examined. Neck is supple. The neck veins are not appreciated. PMI not palpable. Heart is regular and tachycardic. Lungs have equal breath sounds with some Kussmaul breathing, no crackles. Abdomen is soft. Decreased bowel sounds. No palpable organomegaly or masses. Extremities edema 3+. No clubbing or cyanosis. IMPRESSION AND PLAN: Acute kidney injury. Likely acute tubular necrosis in the context of hypotension, intravenous contrast, sepsis. He does not meet criteria for dialysis. He is in positive fluid balance by 9 L. I will attempt to minimize his IV fluids. Antibiotic doses are appropriate. No further changes. He is at high risk for requiring renal replacement therapy before recovery. cc: Marco Hemphill MD
[2019-08-26] MEDS: DUONEB (A & A) INH SCH ×6 (03:10→23:09)
[2019-08-26] MEDS: ZYVOX 600 MG/D5W 600 MG/300 ML IVPB IV SCH ×2 (04:30→17:28)
[2019-08-26 05:55] LABS: ALLEN TEST YES; BE -7.5 mmoll (-3.0-3.0); BLOOD TYPE ARTERIAL; HCO3-(ACT) 19.1 mmoll (20.0-26.0); METHB 0.3 % (0.0-1.5); MODALITY CANNULA; O2(CT) 15.7 mL/dL (15.0-23.0); O2HB 96.4 % (95.0-99.0); PCO2(98.6) 46 mmHg (35-45); PO2(98.6) 85 mmHg (60-100); SAMPLE BLOOD; SAO2 99.1 % (95.0-100.0); THB 11.5 g/dL (11.5-17.4); pH(98.6) 7.24 (7.35-7.45)
[2019-08-26] MEDS: LIORESAL PO SCH ×3 (06:11→21:36)
[2019-08-26 06:16] LABS: BASO# 0.01 X1000 (0.0-0.2); BASO% 0.1 % (0.0-0.8); EOS# 0.06 X1000 (0.0-0.7); EOS% 0.7 % (0.0-10.0); HEMATOCRIT 34.6 % (42.0-52.0); HEMOGLOBIN 11.2 g/dL (14.0-18.0); IMM GRAN# 0.07 X1000 (0.0-0.04); IMM GRAN% 0.9 % (0.0-0.5); LYMPH# 1.35 X1000 (1.2-3.4); LYMPH% 16.5 % (20.5-51.1); MCH 30.5 PG (27-31); MCHC 32.4 g/dL (33-37); MCV 94.3 FL (81-99); MONO% 14.6 % (1.7-9.3); MPV 10.6 FL (7.4-10.4); NEUT# 5.51 X1000 (1.4-6.5); NEUT% 67.2 % (42.2-75.2); PLT 172 X1000 (130-400); RBC 3.67 XMIL (4.7-6.1); RDW 13.1 % (11.5-14.5)
[2019-08-26] MEDS: HUMALOG SUBQ SCH ×4 (06:44→20:16)
--- NOTE | 2019-08-26 07:28 | Diag Imaging Result Doc PS360 ---
CHEST-PORTABLE - 08/26/2019 INDICATION: PNA,corse lung sound,AMS COMPARISON: 08/23/2019 FINDINGS: Lung volumes are critically low with worsening nonspecific central atelectasis or infiltrates. There is cardiomegaly. Stable right hemidiaphragm elevation. No large pleural effusion. IMPRESSION: Lower lung volumes. Worsening central infiltrates or atelectasis. Electronically signed by Jacinto Avila 08/26/2019 7:26 AM
[2019-08-26] MEDS: LIPOSYN 20% 250 ML IV SCH (07:39)
[2019-08-26 08:22] LABS: ALBUMIN 1.9 g/dL (3.5-5.0); CALCIUM 8.1 mg/dL (8.8-10.2); CREATININE 3.3 mg/dL (0.7-1.2); MAGNESIUM 2.3 mg/dL (1.5-2.7); PHOSPHORUS 5.2 mg/dL (2.7-4.5); POTASSIUM 4.3 mmol/L (3.5-5.1)
[2019-08-26 09:38] LABS: ALB/GLOB RATIO 0.5; DIRECT BILIRUBIN 0.6 mg/dL (0.00-0.20); TOTAL BILIRUBIN 0.91 mg/dL (0.20-1.00); TOTAL PROTEIN 6.3 g/dL (6.3-8.3)
[2019-08-26] MEDS: LANTUS INSULIN SUBQ SCH (10:40)
[2019-08-26] MEDS: FLOMAX PO SCH ×2 (11:31→20:07)
--- NOTE | 2019-08-26 11:41 | PROGRESS NOTE ---
DATE: 08/26/2019 SUBJECTIVE: Mr. Gauthier was admitted on 08/21/2019. He has no primary care physician that we know of. A 53-year-old with history of chronic alcoholism, diabetes mellitus type 2, hypertension, presented to the emergency department with complaint of having multiple falls. States he usually drinks about 6 to 10 beers a day. Last drink was early in the morning; states that he felt like he was having withdrawal symptoms. Also complaining of abdominal pain. Patient evaluated in the emergency department. Laboratories did show possibility of early DKA, and he had elevated blood glucose. CO2 was low. Ketones in the urine. Patient also had imaging with possibility of prostate mass. Due to his presenting symptoms, he will need admission for further management. ADMISSION DIAGNOSES: 1. Suspected early diabetic ketoacidosis. 2. Possible alcohol withdrawal. 3. Normal CT showing questionable prostate mass. 4. Diabetes mellitus type 2. 5. Hypertension. He had Urology consultation per Dr. Arthur and felt he had diabetic ketoacidosis, alcohol withdrawal and hypertension. He had some urinary retention with bilateral hydronephrosis imaged on CT scan, possible prostatic abscess. Upon examination, I did not appreciate any fluctuance consistent with abscess and so continued antibiotic coverage. He was on Zosyn and wanted to try voiding trial and got a renal ultrasound. CT of the chest done 08/24, atelectasis or pneumonia in the right lower lobe, atelectasis in the left posterior costophrenic sulcus, post pleural effusions and ascites appreciated. Infectious Disease was following. The patient had methicillin- resistant Staphylococcus aureus which arose from a methicillin-resistant Staphylococcus aureus pneumonia. I doubt it is coming from urinary tract infection, so prostate did not seem to be tender or fluctuant. Urine cultures have been negative. CT of the abdomen, brought up the possibility of prostatitis, prostatic abscess. He is lethargic. Apparently was lethargic yesterday. Today, he is very lethargic as well. OBJECTIVE: Vital Signs: He remains afebrile, temperature 98.8 degrees, pulse 100 respirations 14. Lungs: Lungs are clear anterolateral. Cardiovascular exam: Regular rhythm and rate without murmur or S3. Abdomen: Abdomen is soft. Skin: Skin is warm and dry. ASSESSMENT AND PLAN: 1. Admitted with diabetic ketoacidosis and alcohol withdrawal symptoms. 2. CT imaging revealing concern for prostatic abscess. On original exam did not have evidence of boggy prostate, concerning for prostatitis or abscess. At first they thought the prostate was most likely he reason for transurethral resection, but he has spiked fevers of 105, and so they scheduled him for cystoscopy with transurethral resection of prostatic abscess. Dr. Camargo evaluated him and agreed that there was no obvious fluctuance on digital exam. 3. He had evidence of pneumonia and felt that the bacteremia was from the pneumonia. So, we are treating him for pneumonia bacteremia. 4. Nephrology is following for acute kidney injury, likely acute tubular necrosis because of intravenous contrast in the face of hypotension. Does not meet criteria for dialysis. Watching his creatinine and electrolytes. 5. He is still very lethargic. His pupils are reactive, but it is nonresponsive, even to pain. I will repeat another CT of his head and probably get one of his abdomen and pelvis while we are there. LABORATORY DATA: Today, white count 8200, hematocrit is 34, platelet count 172,000. We will make sure he is on thiamine, and I am going to check a B 12, folate, T4 and TSH. We will check an AM Cortisol level and magnesium and phosphorus and calcium. Lastly, diabetes mellitus. His blood sugars appear under pretty good control. REVIEW OF HIS ORDERS: He is on Clinimix 50 mL an hour. He is on daptomycin; he is getting 600 mg q. 24 hours. Flomax 0.4 mg b.i.d., linezolid 600 mg IV q. 12 hours. He is on baclofen 20 mg p.o. q. 8 hours. cc: Ulises Spicer MD
--- NOTE | 2019-08-26 16:34 | ECHO REPORT ---
ORDER DATE: 08/26/2019 INTERPRETING PHYSICIAN: Dr. Fletcher Carpenter ECHOCARDIOGRAPHIC MEASUREMENTS: 1. Interventricular septum: 1.4 cm. 2. Posterior wall: 1.1 cm. 3. Diastolic diameter: 5.0 cm. 4. Left atrium: 3.6 cm. 5. Aortic root: 3.4 cm. SUMMARY OF THE 2-DIMENSIONAL IMAGIN. Aortic valve leaflets were trileaflet. 2. Pulmonic valve not well visualized. 3. Mitral valve was normal. 4. Tricuspid valve was normal. 5. There is mild mitral regurgitation. 6. Peak velocity across the aortic valve less than 2 m/sec. There is no aortic stenosis or regurgitation. 7. Mild tricuspid regurgitation. Peak velocity across the tricuspid valve was 2.6 m/sec. 8. Normal left ventricular cavity size. Estimated ejection fraction of 55%. 9. Technically suboptimal study. Poor acoustic window. 10. Anterior echo-free space suggestive of pericardial fat pad noted. There is no pericardial effusion or obvious intracardiac mass or thrombus seen. 11. If concern of endocarditis is present, would recommend a transesophageal echocardiogram if clinically indicated. cc: MD Marco Roche MD
--- NOTE | 2019-08-26 17:02 | Diag Imaging Result Doc PS360 ---
CT HEAD W/O CONTRAST - 08/26/2019 INDICATION: lethargy COMPARISON: 08/21/2019 FINDINGS: There is no acute disease or change from prior. IMPRESSION: No acute disease or change from prior. This exam was performed using automated exposure control, adjustment of mA or kV according to patient size, and/or use of iterative reconstruction technique Electronically signed by Jacinto Avila 08/26/2019 5:00 PM
--- NOTE | 2019-08-26 17:16 | NEPHROLOGY PROGRESS NOTE ---
DATE: 08/26/2019 SUBJECTIVE: He is really not responsive to verbal and tactile stimuli. OBJECTIVE: Vital Signs: Blood pressure 135/90, heart rate 100, respirations 13, T-max 101 degrees. General: As above. Skin is warm and dry. Conjunctivae are pink. Neck: Neck veins are not distended. Heart: Regular and tachycardic. Lungs: Equal. No crackles. Abdomen: Soft, nontender. Decreased bowel sounds. Extremities: Minimal edema. IMPRESSION: Acute kidney injury. Acute tubular necrosis. Urine output moderate at 700 mL in the last 24 hours. He does not meet criteria for dialysis today but is at high risk for requiring dialysis in the next 24 to 48 hours. Worsening metabolic acidosis. Overlying respiratory acidosis that is adversely impacting his pH. May require intubation. cc: Marco Hemphill MD
[2019-08-26] MEDS: CUBICIN 600 MG in NS 100 ML IV SCH (17:27)
[2019-08-26] MEDS: CLINIMIX E 4.25%-5% SOLUTION 1,000 ML IV SCH (17:29)
--- NOTE | 2019-08-26 17:29 | Diag Imaging Result Doc PS360 ---
CT ABDOMEN/PELVIS W/O CONTRAST - 08/26/2019 INDICATION: lethargy, infection COMPARISON: 08/21/2019 FINDINGS: There are small bilateral pleural effusions. There is cardiomegaly. There is some ill-defined infiltrate in the lung bases which may be pulmonary edema or pneumonia. There is significant body wall edema. There is a Kelly catheter in the urinary bladder. There is significant urinary bladder wall thickening. There is a small amount of ascites. No bowel obstruction or inflammation. The liver is nodular concerning for cirrhosis. Otherwise, abdominal organs are grossly normal. IMPRESSION: Urinary bladder wall thickening suggesting cystitis. Infiltrate in the lung bases bilaterally right greater than left. Small bilateral pleural effusions. Ascites and body wall edema. This exam was performed using automated exposure control, adjustment of mA or kV according to patient size, and/or use of iterative reconstruction technique Electronically signed by Jacinto Avila 08/26/2019 5:26 PM
[2019-08-27] MEDS: ATIVAN IV PRN (02:38)
[2019-08-27] MEDS: DUONEB (A & A) INH SCH ×6 (03:15→22:41)
[2019-08-27] MEDS: MORPHINE IV PRN ×2 (03:38→18:13)
[2019-08-27] MEDS: LOPRESSOR IV PRN ×3 (04:07→18:13)
[2019-08-27] MEDS: ZYVOX 600 MG/D5W 600 MG/300 ML IVPB IV SCH ×2 (04:31→16:18)
[2019-08-27] MEDS: LIORESAL PO SCH ×3 (05:25→21:54)
[2019-08-27 06:15] LABS: CALCIUM 8.5 mg/dL (8.8-10.2); CREATININE 2.7 mg/dL (0.7-1.2); PHOSPHORUS 3.6 mg/dL (2.7-4.5)
[2019-08-27 06:24] LABS: C REACTIVE PROT QUANT 130.78 mg/L (0.00-5.00); MAGNESIUM 2.2 mg/dL (1.5-2.7)
[2019-08-27] MEDS: HUMALOG SUBQ SCH ×5 (06:36→20:53)
[2019-08-27 06:57] LABS: TSH 3.56 uIUmL (0.27-4.20)
[2019-08-27 07:01] LABS: FREE T4 0.68 ng/dL (0.93-1.70)
--- NOTE | 2019-08-27 08:18 | PROGRESS NOTE ---
DATE: 08/27/2019 SUBJECTIVE: Mr. Gauthier apparently did wake up a little bit and did talk some. He looks like he is sleeping. He looks comfortable. He remains afebrile. He is not having any tremor or shaking. OBJECTIVE: Vital Signs: Temp 98 degrees, pulse 100, respirations 11, his blood pressures have been 171/110, 139/92, 155/96, 186/113. HEENT: Pupils are equal and round. Lungs: Clear in all lung waters. Cardiovascular: Regular rhythm and rate without murmur or S3. Urine output is 4200 mL. ASSESSMENT AND PLAN: 1. Acute kidney injury, acute tubular necrosis. Urine output is moderate. His volume status and electrolytes I think are stable. He does have worsening metabolic acidosis. Chemistries this morning: Sodium 135, potassium 3.0, chloride 101, BUN is 46, creatinine 2.7, and his bicarbonate actually has improved. 2. Repeat CT of the head and abdomen, did not see any new pathology. He is very lethargic, maybe a little better, starting to wake up some. Suspect some alcohol withdrawal, but he is a week out now, and should be seeing improvement. 3. He had evidence of pneumonia, and I feel that the bacteremia is from his pneumonia. Continue present antibiotics. 4. He was admitted with diabetic ketoacidosis and alcohol withdrawal. This appears to have improved, so hopefully he will wake up some today. He is on Clinimix at 50 mL an hour, he is getting daptomycin 600 mg intravenous every 24 hours. He is on Lantus insulin 20 units subcutaneously daily. He is getting Flomax 0.4 mg b.i.d. and linezolid 600 mg intravenously every 12 hours. cc: Ulises Spicer MD
[2019-08-27 08:46] LABS: BASO# 0.01 X1000 (0.0-0.2); BASO% 0.2 % (0.0-0.8); EOS# 0.12 X1000 (0.0-0.7); HEMATOCRIT 34.3 % (42.0-52.0); HEMOGLOBIN 11.4 g/dL (14.0-18.0); IMM GRAN# 0.04 X1000 (0.0-0.04); IMM GRAN% 0.7 % (0.0-0.5); LYMPH# 1.33 X1000 (1.2-3.4); LYMPH% 22.5 % (20.5-51.1); MCH 30.4 PG (27-31); MCHC 33.2 g/dL (33-37); MCV 91.5 FL (81-99); MONO# 1.32 X1000 (0.11-0.59); MONO% 22.4 % (1.7-9.3); MPV 10.2 FL (7.4-10.4); NEUT# 3.08 X1000 (1.4-6.5); NEUT% 52.2 % (42.2-75.2); PLT 217 X1000 (130-400); RBC 3.75 XMIL (4.7-6.1); RDW 12.8 % (11.5-14.5)
[2019-08-27] MEDS: LIPOSYN 20% 250 ML IV SCH (08:49)
[2019-08-27] MEDS: CLINIMIX E 4.25%-5% SOLUTION 1,000 ML IV SCH ×3 (08:50→12:03)
[2019-08-27] MEDS: LANTUS INSULIN SUBQ SCH (08:50)
[2019-08-27] MEDS: FLOMAX PO SCH ×2 (08:50→20:13)
[2019-08-27 09:17] LABS: ANISOCYTOSIS 1+; EOS 2 % (1-10); LYMPHS 24 % (21-51); MONO 17 % (1-9); SEGS 57 % (42-75)
[2019-08-27 09:55] LABS: SED RATE 77 mm/hr (0-15)
[2019-08-27] MEDS: CUBICIN 600 MG in NS 100 ML IV SCH (16:05)
[2019-08-28] MEDS: ATIVAN IV PRN ×3 (01:05→21:57)
[2019-08-28] MEDS: HUMALOG SUBQ SCH ×6 (02:11→20:33)
[2019-08-28] MEDS: DUONEB (A & A) INH SCH ×6 (03:13→23:41)
[2019-08-28] MEDS: ZYVOX 600 MG/D5W 600 MG/300 ML IVPB IV SCH ×2 (05:18→16:00)
[2019-08-28] MEDS: MORPHINE IV PRN ×3 (05:39→23:24)
[2019-08-28] MEDS: CLINIMIX E 4.25%-5% SOLUTION 1,000 ML IV SCH (06:09)
[2019-08-28 06:10] LABS: BASO# 0.03 X1000 (0.0-0.2); BASO% 0.4 % (0.0-0.8); EOS# 0.46 X1000 (0.0-0.7); EOS% 6.4 % (0.0-10.0); HEMATOCRIT 36.2 % (42.0-52.0); HEMOGLOBIN 12.1 g/dL (14.0-18.0); IMM GRAN# 0.08 X1000 (0.0-0.04); IMM GRAN% 1.1 % (0.0-0.5); LYMPH# 1.42 X1000 (1.2-3.4); LYMPH% 19.8 % (20.5-51.1); MCH 30.8 PG (27-31); MCHC 33.4 g/dL (33-37); MCV 92.1 FL (81-99); MONO# 1.27 X1000 (0.11-0.59); MONO% 17.7 % (1.7-9.3); MPV 10.6 FL (7.4-10.4); NEUT% 54.6 % (42.2-75.2); PLT 211 X1000 (130-400); RBC 3.93 XMIL (4.7-6.1); RDW 12.9 % (11.5-14.5); WBC 7.16 X1000 (4.8-10.8)
[2019-08-28] MEDS: LOPRESSOR IV PRN ×3 (06:15→18:43)
[2019-08-28] MEDS: LIPOSYN 20% 250 ML IV SCH (07:05)
[2019-08-28] MEDS: LIORESAL PO SCH ×3 (07:06→21:41)
--- NOTE | 2019-08-28 08:25 | INFECTIOUS DISEASE PROGRESS NO ---
DATE: 08/28/2019 PRESENT ILLNESS: The patient has methicillin-resistant Staph aureus pneumonia which originated from a bibasilar methicillin-resistant Staph aureus pneumonia. MEDICATIONS: The patient is taking daptomycin for the methicillin-resistant Staph aureus bacteremia, and Zyvox for the methicillin-resistant Staph aureus pneumonia. I am not using vancomycin because the patient already has end-stage renal disease. This is day 3 of treatment with both those agents, with day 1 being the first day that the repeat blood cultures were negative. PHYSICAL EXAMINATION: Vital Signs: Temperature is 98.2 degrees, pulse 110, respirations 22, blood pressure 198/120. General: This is a chronically ill-appearing, obese middle-aged male. He is somewhat delirious, but he does not seem to be in any acute distress. Head, eyes, ears, nose, and throat: Does not have any drainage from his nose or ears. I did not see any white coating on his tongue. Neck: No pain with moving. Lungs: Clear to auscultation. Cardiovascular: Heart rate is regular. Abdomen: Soft and nontender. Neurologic: The patient is awake. He did attempt to do things that I asked him to do, such as moving his extremities. He did move them, but only a tiny bit. He was not able to carry on a coherent conversation. LAB AND X-RAY: Repeat CT scan shows bladder wall thickening and bibasilar infiltrates. Repeat blood cultures drawn on the 25 of August are negative. CBC shows a white count of 7160, hemoglobin 12.1, and platelet count 211,000. GFR is 31. ASSESSMENT AND PLAN: Patient has methicillin-resistant Staphylococcus aureus bacteremia arising from a bibasilar pneumonia. My plan is to continue daptomycin and Zyvox; this is day 3 of treatment with them, with day 1 being the first day that the patient's blood cultures were negative. COMORBIDITIES: The patient's comorbidities include diabetes mellitus and alcoholism. cc: Jagjit Camargo MD
[2019-08-28 08:48] LABS: POTASSIUM 2.9 mmol/L (3.5-5.1)
[2019-08-28 09:36] LABS: CALCIUM 9.2 mg/dL (8.8-10.2); CREATININE 2.3 mg/dL (0.7-1.2); MAGNESIUM 2.1 mg/dL (1.5-2.7); PHOSPHORUS 2.8 mg/dL (2.7-4.5)
[2019-08-28] MEDS: FLOMAX PO SCH ×2 (10:23→21:41)
[2019-08-28] MEDS: LANTUS INSULIN SUBQ SCH (10:24)
--- NOTE | 2019-08-28 10:41 | NEPHROLOGY PROGRESS NOTE ---
DATE: 08/28/2019 SUBJECTIVE: The patient is somewhat obtunded. He moans, but does not interact. OBJECTIVE: Vital Signs: Temperature 98 degrees, pulse 106, respiratory rate 17, blood pressure 198/120. Intake 2.3 L, output 3 L. General: This is a middle-aged gentleman, resting in bed, fairly obtunded. HEENT: Normocephalic, atraumatic. Neck: Supple. No JVD. Cardiovascular: Regular rate and rhythm. Occasional tachycardia. Pulmonary: Equal excursion. He has no increased work of breathing. Abdomen: Obese, round, but soft. : Kelly catheter with urine noted. Extremities: He has trace lower extremity edema. Integumentary: Skin is warm and dry. LABORATORY DATA: WBC of 7.1, hemoglobin 12.1. His sodium and potassium are pending. His CO2 is 15, creatinine is 2.2 (2.7, 3.3). ASSESSMENT AND PLAN: Acute tubular necrosis. Urine output has continued to increase. His creatinine has had some modest improvement over the weekend. He continues with modest acidosis, but not critical to the point that we would need to initiate dialysis. Will continue to treat. Dictated by CARLOS Hartley for Marco Hemphill MD Face to face encounter, data reviewed, discussed with Eliezer Padilla on 08/28/19. I agree with the above assessment and plan of care. cc: Marco Hemphill MD [facility]
--- NOTE | 2019-08-28 12:41 | PROGRESS NOTE ---
DATE: 08/28/2019 SUBJECTIVE: Mr. Gauthier did not respond to me but apparently he woke up, had a little agitation this morning. Did say his name. He looks like he is breathing comfortably. Remains afebrile. OBJECTIVE: Temperature 98 degrees, pulse 107, respirations 14, blood pressure 216/117. Pupils are equal and round. Lungs are clear in all lung waters. Cardiovascular Examination: Regular rhythm and rate without murmur or S3. Abdomen is soft. Note that his blood pressures have been 176/110, 209/132, 223/129, 216/117. ASSESSMENT AND PLAN: 1. Acute tubular necrosis. Patient's output continues to increase and showed some modest improvement over this weekend. He continues to have a modest acidosis. 2. Methicillin-resistant Staphylococcus aureus pneumonia, originated from bibasilar methicillin- resistant Staphylococcus aureus pneumonia. He is taking daptomycin for the methicillin- resistant Staphylococcus aureus bacteremia and Zyvox for the methicillin-resistant Staphylococcus aureus pneumonia. Because the patient has end-stage renal disease, we are not using vancomycin. This is day 3 of treatment for both of these agents. 3. He still stays lethargic. Does have a history of alcohol use, so may be prolonged withdrawals. 4. Diabetic ketoacidosis on presentation and in face of alcohol withdrawal as well. We will see if we can manage his blood pressure down a little bit. We will start a clonidine patch at 0.2 mg every 7 days and we will see if we can use Apresoline. We will try 10 mg intravenous every 8 hours. cc: Ulises Spicer MD
[2019-08-28] MEDS: CATAPRES-TTS-2 TD SCH (13:00)
[2019-08-28] MEDS: CUBICIN 600 MG in NS 100 ML IV SCH (14:34)
[2019-08-28] MEDS ORDERED: POTASSIUM CHLORIDE 40 MEQ/SWI 40 MEQ/100 ML IVPB IV ONE (16:29)
[2019-08-28] MEDS: POTASSIUM CHLORIDE 20 MEQ/SWI 20 MEQ/100 ML IVPB IV SCH ×2 (16:59→18:32)
[2019-08-28] MEDS: NS 1,000 ML IV SCH (17:00)
[2019-08-28] MEDS: LABETALOL IV PRN ×2 (17:01→23:34)
[2019-08-28] MEDS: APRESOLINE IV PRN (20:27)
[2019-08-29] MEDS: HUMALOG SUBQ SCH ×6 (00:30→20:15)
[2019-08-29] MEDS: LOPRESSOR IV PRN (00:44)
[2019-08-29] MEDS: CLINIMIX E 4.25%-5% SOLUTION 1,000 ML IV SCH ×2 (02:28→21:05)
[2019-08-29] MEDS: APRESOLINE IV PRN ×3 (02:29→18:03)
[2019-08-29] MEDS: MORPHINE IV PRN ×2 (02:30→20:44)
[2019-08-29] MEDS: ATIVAN IV PRN ×2 (02:30→22:38)
[2019-08-29] MEDS: DUONEB (A & A) INH SCH ×6 (03:28→23:20)
[2019-08-29] MEDS: ZYVOX 600 MG/D5W 600 MG/300 ML IVPB IV SCH ×2 (03:36→15:26)
[2019-08-29] MEDS: LIORESAL PO SCH ×3 (05:02→21:32)
[2019-08-29] MEDS: LIPOSYN 20% 250 ML IV SCH (06:44)
[2019-08-29 08:36] LABS: HEMOGLOBIN 11.6 g/dL (14.0-18.0); MCH 29.9 PG (27-31); MCHC 33.1 g/dL (33-37); MCV 90.2 FL (81-99); MPV 10.1 FL (7.4-10.4); RBC 3.88 XMIL (4.7-6.1); RDW 12.9 % (11.5-14.5); WBC 9.93 X1000 (4.8-10.8)
[2019-08-29 09:14] LABS: ALBUMIN 2.3 g/dL (3.5-5.0); CALCIUM 9.6 mg/dL (8.8-10.2); CREATININE 1.9 mg/dL (0.7-1.2); PHOSPHORUS 3.5 mg/dL (2.7-4.5); POTASSIUM 2.6 mmol/L (3.5-5.1)
[2019-08-29] MEDS: FLOMAX PO SCH ×2 (09:34→20:15)
[2019-08-29] MEDS: LANTUS INSULIN SUBQ SCH (10:00)
[2019-08-29 10:45] LABS: INR 1.21; PROTIME 15.5 Seconds (11.0-16.0)
[2019-08-29] MEDS ORDERED: NS 250 ML ONE (11:23)
[2019-08-29] MEDS: NS 1,000 ML IV SCH ×2 (12:43→14:01)
--- NOTE | 2019-08-29 12:53 | Diag Imaging Result Doc PS360 ---
EXAM: CHEST-PORTABLE 08/29/2019 HISTORY: To confirm PICC placement. TECHNIQUE: AP portable at 1236 COMMENT: There is a right PICC line with its tip just above the right atrium. The inspiration is markedly suboptimal and there is atelectasis plus minus pneumonia in the right lower lobe. This is slightly worse than on 08/26/2019. IMPRESSION: Worsened atelectasis in the right lower lobe. Electronically signed by Ashok Logan 08/29/2019 12:51 PM
--- NOTE | 2019-08-29 13:42 | PROGRESS NOTE ---
DATE: 08/29/2019 SUBJECTIVE: Mr. Gauthier's belly appears little bit more distended but it seems to be nontender. He did wake up and he actually talked to me and apparently he talked a little bit earlier to the nurse. He appears comfortable. OBJECTIVE: Vital signs: Temperature 98 degrees, pulse 92, respirations 14, blood pressure 168/100. Pupils are equal and round. Lungs are clear in all lung waters. Cardiovascular exam: Regular rhythm and rate without murmur or S3. Abdomen is soft. Skin is warm and dry. ASSESSMENT AND PLAN: 1. Chest x-ray this morning, worsened atelectasis of the right lower lobe. He seems to be a little more alert, at least he is arousable. 2. Acute tubular necrosis. His renal function seems to be improving. Urine output is certainly good. Creatinine down to 1.9; when he presented it had gotten up to 3.3. Appears he has acute tubular necrosis. 3. Methicillin-resistant Staphylococcus aureus pneumonia which originated from bibasilar methicillin-resistant Staphylococcus aureus pneumonia. Continue current antibiotics. He is getting Zyvox for methicillin-resistant Staphylococcus aureus pneumonia and getting daptomycin for bacteremia. REVIEW OF ORDERS: In looking at his orders, I do not see any change. LABORATORY DATA: Looking at his lab from today, blood sugars 119, 171, 80, 184. cc: Ulises Spicer MD
[2019-08-29] MEDS: POTASSIUM CHLORIDE 20 MEQ/SWI 20 MEQ/100 ML IVPB IV SCH ×2 (14:01→16:01)
--- NOTE | 2019-08-29 15:06 | INFECTIOUS DISEASE PROGRESS NO ---
DATE: 08/29/2019 PRESENT ILLNESS: The patient has methicillin-resistant Staph aureus pneumonia which originated from a bibasilar methicillin-resistant Staph aureus pneumonia. MEDICATIONS: The patient is on a combination of Zyvox for the pneumonia and daptomycin for the bacteremia both caused by methicillin-resistant Staph aureus. This is day 4 of treatment with both agents. PHYSICAL EXAMINATION: Vital Signs: Temperature 98.1 degrees, pulse 96, respirations 16, and blood pressure 172/106. General: This is an ill-appearing, obese, middle-aged male. He seems to be delirious. Head/eyes/ears/nose/throat: No drainage from the nose or the ears. I could not get a good view of his mouth. Neck: I did not seem to be having any pain when he moved his neck. Lungs: Clear to auscultation. Cardiovascular: Regular heart rate. Abdomen: Soft and nontender. Neurologic: The patient is arousable. He did not follow request to move his extremities. He does not have a tremor. LABORATORY AND X-RAY STUDIES: Echocardiogram showed no evidence of vegetations. Creatinine is 1.9. GFR is 37. CBC shows a white count of 9930, hemoglobin 11.6, and platelet count is 329,000. The patient's CBC today showed a white count of 9930, hemoglobin 11.6, and platelet count 229,000, creatinine is 1.9. GFR is 37. Echocardiogram showed no vegetations. ASSESSMENT AND PLAN: Patient has pneumonia and bacteremia both due to methicillin-resistant Staph aureus. I plan to continue daptomycin and Zyvox. This is day 4 of treatment with day 1 being the first day that the patient's blood cultures were negative. The patient will require 2 weeks of antimicrobial therapy for his bacteremia and pneumonia. I am going to order a CK level for tomorrow. COMORBIDITIES: The patient is a diabetic and an alcoholic. cc: Jagjit Camargo MD
[2019-08-29] MEDS: LABETALOL IV PRN ×2 (15:25→22:38)
[2019-08-29] MEDS: CUBICIN 600 MG in NS 100 ML IV SCH (15:26)
--- NOTE | 2019-08-29 16:16 | PROVIDER PROGRESS NOTE ---
Progress Note Subjective: pt lying in bed resting, difficult to arouse, mumbling words. Objective: vitals. Temperature 98.1, pulse 96, Respiratory 16, blood pressure 172/106, 02 sat 95% on 3 L nasal cannula. General: white male lying in bed in no acute distress. HEENT: Normocephalic, a traumatic, mucous membranes dry, pupils equal and reactive, trachea midline. Skin: Warm and dry Neck: supple, no jvd observed Cardiovascular: S1S2, no murmur or gallop Respiratory: anterior high pitched wheezes and rhonchi Abdominal: slightly firm, non tender, distended, bowel sounds hypoactive : non observed, maurice in place Extremities: 1+pitting to BLE and BUE Neurologic:drowsy Labs: WBC 9.93, hemoglobin 11.6, hematocrit 35.0, platelet count 329, sodium 136, potassium 2.6, chloride 102, carbon dioxide 22, BUN 44, creatinine 1.9. Intake 2990, output 3800. Impression: Acute kidney injury related to acute tubular necrosis. Urine output continues to increase. His creatinine has improved marginally. Does not meet need for renal replacement therapy. Continue current plan. Metabolic acidosis. Improved. Nutrition. Receiving IV nutrition. Medication review.
[2019-08-29] MEDS: OFIRMEV 1000 MG/ISOTONIC SOLN 1,000 MG/100 ML BOTTLE IV PRN (20:44)
[2019-08-30] MEDS: HUMALOG SUBQ SCH ×6 (01:22→22:30)
[2019-08-30] MEDS: APRESOLINE IV PRN ×4 (02:21→22:29)
[2019-08-30] MEDS: DUONEB (A & A) INH SCH ×6 (03:31→23:37)
[2019-08-30] MEDS: MORPHINE IV PRN (03:34)
[2019-08-30] MEDS: CLINIMIX E 4.25%-5% SOLUTION 1,000 ML IV SCH ×2 (03:34→22:29)
[2019-08-30] MEDS: ZYVOX 600 MG/D5W 600 MG/300 ML IVPB IV SCH ×2 (03:34→17:00)
[2019-08-30] MEDS: LABETALOL IV PRN ×3 (03:35→17:16)
--- NOTE | 2019-08-30 05:39 | Diag Imaging Result Doc PS360 ---
EXAM: CHEST-1 VIEW HISTORY: pneumonia TECHNIQUE: Single view COMPARISON: 08/29/2019 FINDINGS: Poor inspiratory effort. The right hemidiaphragm is elevated. The heart is mildly enlarged and there is mild pulmonary edema. Interstitial markings are less pronounced than on the prior study. No change in the right-sided PICC line. IMPRESSION: Interval improvement Electronically signed by Trent Moura 08/30/2019 5:37 AM
[2019-08-30] MEDS: LIORESAL PO SCH (05:41)
[2019-08-30] MEDS: LIPOSYN 20% 250 ML IV SCH ×2 (05:46→06:48)
[2019-08-30] MEDS: ATIVAN IV PRN ×3 (05:58→18:50)
[2019-08-30 06:28] LABS: BASO# 0.05 X1000 (0.0-0.2); BASO% 0.4 % (0.0-0.8); EOS# 0.33 X1000 (0.0-0.7); EOS% 2.8 % (0.0-10.0); HEMATOCRIT 34.7 % (42.0-52.0); HEMOGLOBIN 11.5 g/dL (14.0-18.0); IMM GRAN# 0.11 X1000 (0.0-0.04); IMM GRAN% 0.9 % (0.0-0.5); LYMPH# 2.44 X1000 (1.2-3.4); LYMPH% 20.7 % (20.5-51.1); MCH 30.3 PG (27-31); MCHC 33.1 g/dL (33-37); MCV 91.3 FL (81-99); MONO# 1.33 X1000 (0.11-0.59); MONO% 11.3 % (1.7-9.3); MPV 9.6 FL (7.4-10.4); NEUT# 7.55 X1000 (1.4-6.5); NEUT% 63.9 % (42.2-75.2); PLT 402 X1000 (130-400); RDW 13.3 % (11.5-14.5); WBC 11.81 X1000 (4.8-10.8)
[2019-08-30 06:41] LABS: ALBUMIN 2.3 g/dL (3.5-5.0); CALCIUM 9.4 mg/dL (8.8-10.2); CREATININE 1.6 mg/dL (0.7-1.2); POTASSIUM 2.9 mmol/L (3.5-5.1)
[2019-08-30] MEDS: POTASSIUM CHLORIDE 20 MEQ/SWI 20 MEQ/100 ML IVPB IV SCH ×2 (07:45→09:37)
[2019-08-30] MEDS: NS 1,000 ML IV SCH (08:30)
[2019-08-30] MEDS: LANTUS INSULIN SUBQ SCH ×2 (08:30→08:43)
[2019-08-30] MEDS ORDERED: POTASSIUM CHLORIDE 40 MEQ/SWI 40 MEQ/100 ML IVPB IV ONE (09:53)
[2019-08-30] MEDS: FLOMAX PO SCH ×2 (10:03→20:10)
--- NOTE | 2019-08-30 10:09 | PROGRESS NOTE ---
DATE: 08/30/2019 SUBJECTIVE: Mr. Gauthier actually wakes up, and he can say his name and where he is, knows he is in the hospital but then he will talk really tangential thoughts that do not seem to make any sense. OBJECTIVE: Temperature 98.7, pulse 97, respirations 18. Lungs are clear in all lung waters. Cardiovascular Examination: Regular rhythm and rate without murmur or S3. Abdomen is soft. Skin is warm and dry. Urine output is 4300 mL. Chest x-ray, interval improvement, poor inspiratory effort. Right hemidiaphragm is elevated. Heart mildly enlarged. There is mild pulmonary edema. Interstitial markings are less pronounced than in the previous study. ASSESSMENT AND PLAN: 1. Acute kidney injury related to acute tubular necrosis. Urine output continues to improve. Renal function seems to be improving. Metabolic acidosis improved. 2. Receiving intravenous nutrition. 3. Confusion, metabolic encephalopathy, history of alcohol. 4. Methicillin-resistant Staphylococcus aureus bacteremia which originated from probably his pneumonia, so getting Zyvox and also getting daptomycin, continue. He seems to be improving as far as his mental status but it has been very slow. REVIEW OF HIS ORDERS: Of note, we have started him on thiamine. He is on daptomycin 600 mg q.12, tamsulosin 0.4 mg b.i.d., Flomax 0.4 mg b.i.d., linezolid 600 mg IV q.12. cc: Ulises Spicer MD
[2019-08-30 15:02] LABS: CALCIUM 9.1 mg/dL (8.8-10.2); CREATININE 1.6 mg/dL (0.7-1.2); POTASSIUM 3.3 mmol/L (3.5-5.1)
[2019-08-30] MEDS: CUBICIN 600 MG in NS 100 ML IV SCH (15:47)
--- NOTE | 2019-08-30 19:55 | NEPHROLOGY PROGRESS NOTE ---
DATE: 08/30/2019 SUBJECTIVE: Unchanged. Remains somnolent and difficult to arouse. OBJECTIVE: Vital Signs: Blood pressure 188/105, heart rate 97, respirations 18, afebrile. General: No acute distress. Skin: Warm and dry. Neck: Neck veins are not distended. Heart: Regular. No gallops. Lungs: Equal. No crackles. Abdomen: Soft. Bowel sounds present. Extremities: 1+ edema. No clubbing or cyanosis. IMPRESSION: 1. Acute kidney injury. Acute tubular necrosis secondary to sepsis. Creatinine 1.6 today. I will sign off. 2. Hypertension. He is unable to take p.o. at this time, and therefore is being treated with p.r.n. intravenous labetalol and hydralazine. Continue same. cc: Marco Hemphill MD
--- NOTE | 2019-08-30 21:47 | INFECTIOUS DISEASE PROGRESS NO ---
DATE: 08/30/2019 PRESENT ILLNESS: The patient has a methicillin-resistant Staphylococcus aureus pneumonia and an associated Staphylococcus aureus bacteremia. MEDICATIONS: The patient is on Zyvox for the pneumonia and daptomycin for the bacteremia, both caused by methicillin-resistant Staphylococcus aureus. This is day 5 of treatment with both agents. PHYSICAL EXAMINATION: Vital Signs: Temperature earlier was 101. It is 99 now. Pulse 93, respirations 16, blood pressure 162/91. General: This is an ill appearing and obese middle-aged male. He still seems somewhat delirious. Head/eyes/ears/nose/throat: I did not see any drainage from his nose or ears. I did not see any white patches in his mouth. Neck: There is no pain with movement of his neck. Lungs: Clear to auscultation. Cardiovascular: Heart rate is regular. Abdomen: Soft and nontender. Neurologic: The patient is awake today. I still cannot understand when he tries to talk. He did move his arms to request, but he was not able to move his legs. He does not have a tremor. LAB AND X-RAY: Chest x-ray shows decreased interstitial markings. Creatinine is 1.6. GFR is 45. CBC shows a white count of 11,810, hemoglobin 11.5, and platelet count 402,000. CK was 26. ASSESSMENT AND PLAN: The patient has methicillin-resistant Staphylococcus aureus pneumonia and an associated bacteremia. I plan to continue with both daptomycin and Zyvox, most likely for 2 weeks. COMORBIDITY: The patient has diabetes mellitus and he is an alcoholic. cc: Jagjit Camargo MD
[2019-08-31] MEDS: LOPRESSOR IV PRN ×2 (01:14→08:47)
[2019-08-31] MEDS: HUMALOG SUBQ SCH ×6 (01:14→21:26)
[2019-08-31] MEDS: ATIVAN IV PRN ×6 (02:25→21:25)
[2019-08-31] MEDS: ZYVOX 600 MG/D5W 600 MG/300 ML IVPB IV SCH ×2 (03:39→15:27)
[2019-08-31] MEDS: APRESOLINE IV PRN ×4 (03:39→21:55)
[2019-08-31] MEDS: DUONEB (A & A) INH SCH ×6 (03:42→23:25)
[2019-08-31] MEDS: NS 1,000 ML IV SCH (05:19)
[2019-08-31] MEDS: LIPOSYN 20% 250 ML IV SCH ×2 (05:21→07:03)
[2019-08-31] MEDS: CLINIMIX E 4.25%-5% SOLUTION 1,000 ML IV SCH (06:20)
[2019-08-31] MEDS: LABETALOL IV PRN ×3 (06:20→19:51)
[2019-08-31 06:26] LABS: HEMATOCRIT 33.5 % (42.0-52.0); MCHC 32.8 g/dL (33-37); MCV 91.3 FL (81-99); MPV 10.2 FL (7.4-10.4); RBC 3.67 XMIL (4.7-6.1); RDW 13.2 % (11.5-14.5); WBC 14.05 X1000 (4.8-10.8)
[2019-08-31 06:53] LABS: ALBUMIN 2.6 g/dL (3.5-5.0); CALCIUM 9.1 mg/dL (8.8-10.2); CREATININE 1.8 mg/dL (0.7-1.2); PHOSPHORUS 3.7 mg/dL (2.7-4.5); POTASSIUM 2.9 mmol/L (3.5-5.1)
[2019-08-31] MEDS ORDERED: MAGNESIUM SULFATE 2 GM/S.W.I. 2 GM/50 ML IVPB IV ONE (08:41)
[2019-08-31] MEDS ORDERED: POTASSIUM CHLORIDE 40 MEQ/SWI 40 MEQ/100 ML IVPB IV ONE (08:41)
[2019-08-31] MEDS: OFIRMEV 1000 MG/ISOTONIC SOLN 1,000 MG/100 ML BOTTLE IV PRN (08:50)
[2019-08-31] MEDS: LANTUS INSULIN SUBQ SCH (08:51)
--- NOTE | 2019-08-31 08:58 | PROGRESS NOTE ---
DATE: 08/31/2019 SUBJECTIVE: Mr. Gauthier is awake and he is responding, answers questions, said he is not in any pain, would like to try eating. Apparently, he has had a little bit of trouble swallowing, but then he shows confusion, thinks he is ready go home and wants to take care of his mother. OBJECTIVE: Vital Signs: Temperature, he remains afebrile, temperature 99.8 degrees, pulse 99, respirations 32, blood pressure 180/110, weight 232 pounds. HEENT: Pupils are equal round. Lungs: Clear in all lung waters. Cardiovascular: Regular rhythm and rate without murmur or S3. Abdomen: Soft. Skin: Warm and dry. Urine output 5 L. ASSESSMENT AND PLAN: 1. He is on Zyvox for his pneumonia and daptomycin for bacteremia caused by methicillin-resistant Staphylococcus aureus. This is day 6 of treatment with both of these, seems to clinically be improving. 2. Will watch him and continue clear liquids for now. Hopefully, we can advance him to better p.o. nutrition. 3. Confusion, metabolic encephalopathy, history of alcohol. He seems to be improving. 4. On his general labs, creatinine is 1.8. It has been, however, between 1.6 and 1.9. 5. Diabetes mellitus type 2. Sugars 216, 135, 144, 173. REVIEW OF HIS ORDERS: He is getting Clinimix at 50 mL an hour. He is on a clonidine patch. Getting daptomycin 600 mg IV q.24 hours, insulin glargine 20 units subcutaneous daily, labetalol 20 mg IV q.6 p.r.n., Ativan 1 to 2 mg IV q.2 hours, normal saline at 50 mL an hour, Flomax 0.4 mg b.i.d., linezolid 600 mg IV q.12. Chemistries today, sodium 141, potassium 2.9, chloride 104, BUN 38, creatinine 1.8. We will supplement some more potassium. We need to make sure we are following his magnesium as well, magnesium was 1.7. We will give him a little bit of magnesium as well. cc: Ulises Spicer MD
[2019-08-31] MEDS: FLOMAX PO SCH ×2 (09:00→21:17)
[2019-08-31] MEDS ORDERED: ATIVAN ONE ×2 (10:56)
[2019-08-31] MEDS ORDERED: DUONEB (A & A) ONE (11:00)
[2019-08-31] MEDS: CUBICIN 600 MG in NS 100 ML IV SCH (14:14)
[2019-09-01] MEDS ORDERED: APRESOLINE IV ONE (00:09)
[2019-09-01] MEDS: CATAPRES-TTS-2 TD SCH (01:42)
[2019-09-01] MEDS ORDERED: LASIX IV ONE (02:17)
[2019-09-01] MEDS: NS 1,000 ML IV SCH ×2 (02:31→20:54)
[2019-09-01] MEDS: CLINIMIX E 4.25%-5% SOLUTION 1,000 ML IV SCH (02:31)
[2019-09-01] MEDS: LOPRESSOR IV PRN (02:32)
[2019-09-01] MEDS: HUMALOG SUBQ SCH ×6 (02:34→20:55)
[2019-09-01] MEDS: DUONEB (A & A) INH SCH ×6 (03:34→23:05)
[2019-09-01] MEDS: LABETALOL IV PRN (03:45)
[2019-09-01] MEDS: ZYVOX 600 MG/D5W 600 MG/300 ML IVPB IV SCH ×2 (03:45→15:02)
[2019-09-01 05:11] LABS: BASO# 0.06 X1000 (0.0-0.2); BASO% 0.3 % (0.0-0.8); EOS# 0.14 X1000 (0.0-0.7); EOS% 0.6 % (0.0-10.0); HEMATOCRIT 35.9 % (42.0-52.0); HEMOGLOBIN 11.6 g/dL (14.0-18.0); IMM GRAN# 0.16 X1000 (0.0-0.04); IMM GRAN% 0.7 % (0.0-0.5); LYMPH% 4.5 % (20.5-51.1); MCH 30.2 PG (27-31); MCHC 32.3 g/dL (33-37); MCV 93.5 FL (81-99); MONO# 1.45 X1000 (0.11-0.59); MONO% 6.5 % (1.7-9.3); MPV 10.2 FL (7.4-10.4); NEUT# 19.33 X1000 (1.4-6.5); NEUT% 87.4 % (42.2-75.2); PLT 431 X1000 (130-400); RBC 3.84 XMIL (4.7-6.1); RDW 13.6 % (11.5-14.5); WBC 22.14 X1000 (4.8-10.8)
[2019-09-01] MEDS: LIPOSYN 20% 250 ML IV SCH ×2 (05:34→07:40)
[2019-09-01 05:42] LABS: ALBUMIN 2.7 g/dL (3.5-5.0); CALCIUM 9.1 mg/dL (8.8-10.2); CREATININE 1.5 mg/dL (0.7-1.2); PHOSPHORUS 5.1 mg/dL (2.7-4.5); POTASSIUM 3.4 mmol/L (3.5-5.1)
[2019-09-01 05:57] LABS: ALLEN TEST YES; BE -0.9 mmoll (-3.0-3.0); BLOOD TYPE ARTERIAL; HCO3-(ACT) 24.1 mmoll (20.0-26.0); METHB 1.1 % (0.0-1.5); O2(CT) 16.3 mL/dL (15.0-23.0); PO2(98.6) 83 mmHg (60-100); SAMPLE BLOOD; THB 12.4 g/dL (11.5-17.4)
[2019-09-01 05:59] LABS: pH(98.6) 7.19 (7.35-7.45)
[2019-09-01 06:00] LABS: MODALITY BI PAP; PCO2(98.6) 76 mmHg (35-45)
[2019-09-01] MEDS: OFIRMEV 1000 MG/ISOTONIC SOLN 1,000 MG/100 ML BOTTLE IV PRN (06:01)
[2019-09-01] MEDS ORDERED: ATROPINE IV ONE (06:30)
[2019-09-01] MEDS: LEVOPHED 8 MG in D5 1/2 NS 250 ML IV SCH (06:45)
[2019-09-01] MEDS ORDERED: ATROPINE SYRINGE ONE (06:52)
--- NOTE | 2019-09-01 06:56 | Diag Imaging Result Doc PS360 ---
EXAM: CHEST-PORTABLE HISTORY: pneumonia TECHNIQUE: Chest single view COMPARISON: 08/30/2019 FINDINGS: Improved inspiratory effort. However, there are bilateral infiltrates which are more prominent than on the prior study. The heart is mildly enlarged. Small right effusion. No change in the right-sided PICC line. IMPRESSION: Worsening infiltrates Electronically signed by Trent Moura 09/01/2019 6:53 AM
[2019-09-01 07:22] LABS: BANDS 1 % (0-1); LYMPHS 8 % (21-51); MONO 1 % (1-9); SEGS 90 % (42-75)
[2019-09-01] MEDS ORDERED: NS 1,000 ML IV ONE (07:36)
[2019-09-01] MEDS: ATROPINE SYRINGE ONE ×2 (07:43→07:44)
[2019-09-01] MEDS: DIPRIVAN 1% 1,000 MG/100 ML BOTTLE IV SCH ×5 (07:53→20:54)
[2019-09-01] MEDS: FLOMAX PO SCH ×2 (08:51→20:55)
[2019-09-01] MEDS ORDERED: LASIX IV SCH (09:00)
[2019-09-01] MEDS: LANTUS INSULIN SUBQ SCH (09:34)
[2019-09-01] MEDS: MAXIPIME 2 GM in NS 100 ML IV SCH ×2 (09:34→20:02)
--- NOTE | 2019-09-01 11:29 | Diag Imaging Result Doc PS360 ---
EXAM: CHEST-PORTABLE HISTORY: NGT placement TECHNIQUE: Single view COMPARISON: 8:07 AM FINDINGS: A nasogastric tube has been placed. This overlies the esophagus and stomach and appears to be in good position. No other interval change. Electronically signed by Trent Moura 09/01/2019 11:27 AM
--- NOTE | 2019-09-01 11:35 | Diag Imaging Result Doc PS360 ---
EXAM: CHEST-1 VIEW HISTORY: ETT placement TECHNIQUE: Single view COMPARISON: 5:46 AM FINDINGS: An endotracheal tube has been placed. This is in good position approximately 4 cm above the guillermina. The infiltrates are slightly less pronounced. No other interval change. IMPRESSION: Endotracheal tube in good position. Electronically signed by Trent Moura 09/01/2019 11:33 AM
[2019-09-01 12:04] LABS: ALLEN TEST YES; BLOOD TYPE ARTERIAL; HCO3-(ACT) 24.9 mmoll (20.0-26.0); METHB 1.2 % (0.0-1.5); O2(CT) 16.8 mL/dL (15.0-23.0); O2HB 96.5 % (95.0-99.0); PCO2(98.6) 35 mmHg (35-45); PO2(98.6) 104 mmHg (60-100); SAMPLE BLOOD; SAO2 99.5 % (95.0-100.0); SRATE 20 BPM; THB 12.3 g/dL (11.5-17.4); TVOL 500 mL; pH(98.6) 7.44 (7.35-7.45)
[2019-09-01 12:06] LABS: MODALITY VENTILATOR
[2019-09-01] MEDS: CUBICIN 600 MG in NS 100 ML IV SCH (14:18)
--- NOTE | 2019-09-01 15:45 | INFECTIOUS DISEASE PROGRESS NO ---
DATE: 09/01/2019 PRESENT ILLNESS: The patient has methicillin-resistant Staph aureus pneumonia and an associated methicillin-resistant Staph aureus bacteremia. Early this morning, the patient became much worse. Currently, he is intubated and his chest x-ray is worse. Also, he is having fever. MEDICATIONS: The patient has been receiving Zyvox and daptomycin now for 6 days. The Zyvox is for the patient's pneumonia and the daptomycin is for the patient's bacteremia. PHYSICAL EXAMINATION: Vital Signs: Temperature is 101 degrees, pulse 106 respirations 33, blood pressure 230/130. General: This is a ill-appearing middle-aged male. He is intubated and obtunded. Head eyes, ears, nose and throat: He has an orotracheal tube in place. There is no drainage from the nose or the ears. Neck: No apparent pain with passive movement of the neck. Lungs: Bilateral rhonchi. Cardiovascular: Heart rate is regular. Abdomen: Soft and nontender. Neurologic: The patient is obtunded. She did respond to verbal stimuli. There is no tremor. LAB AND X-RAY: CBC shows a white count up to 22,140, hemoglobin 11.6, and platelet count 431,000. Blood gases show a pH of 7.16, a PO2 of 83, and a pCO2 of 76. The results of blood and urine cultures drawn on August 31 are still pending. Chest x-ray shows worsening of the patient's pulmonary infiltrates. ASSESSMENT AND PLAN: The patient has methicillin-resistant Staphylococcus aureus pneumonia and associated bacteremia. He is day 3 of daptomycin and Zyvox. The patient has worsened and this may be due to the fact that the patient has developed a new pulmonary pathogen causing pneumonia in addition to the methicillin-resistant Staphylococcus aureus. My plan is to continue daptomycin and Zyvox and I have ordered a sputum culture and susceptibility testing. Also, I have started the patient on cefepime. I plan to continue Zyvox and daptomycin. COMORBIDITIES: The patient is a diabetic and an alcoholic. cc: Jagjit Camargo MD
--- NOTE | 2019-09-01 17:50 | Diag Imaging Result Doc PS360 ---
EXAM: FOOT 2 VIEWS LEFT INDICATION: osteomyelitis TECHNIQUE: 2 views COMPARISON: 05/25/2018 FINDINGS: There has been prior amputation of the great toe, and there has been interval amputation of the second toe at the MTP joint. There is mild irregularity at the head of the second metatarsal with osteopenia consistent with known osteomyelitis seen on a fairly recent MRI dated 07/25/2018. No other discrete fracture or significant intrinsic osseous lesion is appreciated. There is soft tissue edema overlying the stumps of the first and second toes suggesting cellulitis. IMPRESSION: Mild irregularity at the second metatarsal head compatible with known osteomyelitis as seen on prior MRI. Electronically signed by Yehuda Loja 09/01/2019 5:48 PM
--- NOTE | 2019-09-01 17:53 | Diag Imaging Result Doc PS360 ---
EXAM: FOOT 2 VIEWS RIGHT INDICATION: osteomyelitis TECHNIQUE: 2 views COMPARISON: 05/25/2018 FINDINGS: There has been prior amputation of the great toes just distal to the MTP joint and there has been interval amputation of the second toe at the second MTP joint. There are erosive changes involving the second metatarsal head which could indicate osteomyelitis. This has occurred during the interval. There is also irregularity at the tip of the distal phalanx of the third toe not seen on the previous study worrisome for osteomyelitis. There is soft tissue edema around the third toe and at the stumps of the amputated second and third toes. IMPRESSION: Erosive changes involving the distal phalanx of the third toe and the head of the second metatarsal suggesting possible osteomyelitis. Electronically signed by Yehuda Loja 09/01/2019 5:50 PM
[2019-09-02] MEDS: HUMALOG SUBQ SCH ×6 (00:10→20:19)
[2019-09-02] MEDS: ATIVAN IV PRN ×5 (00:11→22:05)
[2019-09-02] MEDS: DIPRIVAN 1% 1,000 MG/100 ML BOTTLE IV SCH ×6 (00:40→22:05)
[2019-09-02] MEDS: OFIRMEV 1000 MG/ISOTONIC SOLN 1,000 MG/100 ML BOTTLE IV PRN ×2 (02:12→14:09)
[2019-09-02] MEDS: DUONEB (A & A) INH SCH ×6 (03:37→23:27)
[2019-09-02] MEDS: ZYVOX 600 MG/D5W 600 MG/300 ML IVPB IV SCH ×2 (03:47→15:54)
[2019-09-02 04:32] LABS: ALLEN TEST YES; BE -0.7 mmoll (-3.0-3.0); BLOOD TYPE ARTERIAL; HCO3-(ACT) 24.4 mmoll (20.0-26.0); METHB 0.8 % (0.0-1.5); O2(CT) 12.9 mL/dL (15.0-23.0); O2HB 97.3 % (95.0-99.0); PCO2(98.6) 33 mmHg (35-45); PO2(98.6) 115 mmHg (60-100); SAMPLE BLOOD; SAO2 99.4 % (95.0-100.0); SRATE 15 BPM; THB 9.3 g/dL (11.5-17.4); TVOL 500 mL; pH(98.6) 7.45 (7.35-7.45)
[2019-09-02 04:33] LABS: MODALITY VENTILATOR
[2019-09-02 06:21] LABS: ALB/GLOB RATIO 0.5; ALBUMIN 2.2 g/dL (3.5-5.0); POTASSIUM 3.9 mmol/L (3.5-5.1); TOTAL BILIRUBIN 0.6 mg/dL (0.20-1.00); TOTAL PROTEIN 6.8 g/dL (6.3-8.3)
[2019-09-02 06:39] LABS: MAGNESIUM 1.9 mg/dL (1.5-2.7); PHOSPHORUS 4.4 mg/dL (2.7-4.5)
[2019-09-02 07:10] LABS: HEMATOCRIT 30.9 % (42.0-52.0); HEMOGLOBIN 9.9 g/dL (14.0-18.0); MCH 29.9 PG (27-31); MCV 93.4 FL (81-99); MPV 9.5 FL (7.4-10.4); RBC 3.31 XMIL (4.7-6.1); RDW 13.8 % (11.5-14.5); WBC 13.2 X1000 (4.8-10.8)
--- NOTE | 2019-09-02 07:12 | PULMONOLOGY CONSULTATION ---
DATE: 09/01/2019 CLINICAL INDICATION: Respiratory failure. HISTORY OF PRESENT ILLNESS: Mr. Gauthier is a 53-year-old white male with diabetes mellitus, obesity, and alcoholism, who presented to the emergency room 08/21/2019 not feeling well. The patient's blood work revealed increased anion gap with a metabolic acidosis. He had significant hyponatremia and continued to have alcohol in his blood stream. CT scan of the pelvis raised the possibility of prostatitis with an abscess along with bilateral hydronephrosis due to outflow obstruction. He was evaluated by Urology who felt that the prostate was normal and appropriately tender. Kelly catheter was placed. Subsequent blood cultures were positive for methicillin- resistant Staphylococcus aureus. A follow-up scan did not indicate similar findings in the prostate. The patient has had confusion with possible alcohol withdrawal during this hospitalization. He developed progressive respiratory distress through the evening and was intubated earlier this morning. PAST MEDICAL HISTORY: 1. Alcohol abuse. 2. Diabetes mellitus. 3. Hypertension. 4. Obesity. 5. History of diabetic foot infection with osteomyelitis involving the toes. He did require bilateral 2nd toe amputations in 2018. 6. History of seizure disorder. SOCIAL HISTORY: Alcohol use as per above. No tobacco use listed. FAMILY HISTORY: Noncontributory to current presentation. REVIEW OF SYSTEMS: Cannot be obtained. PHYSICAL EXAMINATION: General: Reveals an obese white male who is comfortable on mechanical ventilation. He is currently requiring vasopressors for hypotension. Vital signs: Blood pressure 95/54, heart rate 89, respiratory rate 26, oxygen saturation 97% on 100% FiO2. HEENT: Pupils are equal and reactive. Oropharynx is clear. Neck: Supple. Chest: Reveals coarse rhonchi bilaterally with good breath sounds bilaterally. Cardiac: S1, S2. Abdomen: Obese and soft with diminished bowel sounds. Extremities: Reveal prior digital amputations on the feet with 1+ peripheral edema. LABORATORY DATA: Sodium 141, potassium 3.4, chloride 103, bicarbonate 24, anion gap 14, BUN 36, creatinine 1.5. White blood count 22, hemoglobin 11.6, platelet count 431,000. Arterial blood gas prior to intubation on BiPAP, pH 7.19, pCO2 of 76, PO2 of 83. Blood cultures reveal MRSA in 2 out of 2 blood cultures. IMPRESSION: A 53-year-old with: 1. Acute hypoxemic respiratory failure. 2. Acute hypercapnic respiratory failure. 3. Methicillin-resistant Staphylococcus aureus bacteremia. 4. Encephalopathy with possible alcohol withdrawal. 5. Poorly controlled diabetes with a hemoglobin A1c of 10. 6. Bilateral pulmonary infiltrates consistent with pneumonia. PLAN: 1. Continue full ventilatory support. 2. Send sputum for culture and sensitivity. 3. Continue antibiotics per Infectious Disease. 4. Routine gastric acid suppression. 5. DVT prophylaxis. 6. Attempt tube feeds. 7. Continue Levophed for hypotension. TIME SPENT: Critical care management 1+ hours. cc: Michael Goins MD
--- NOTE | 2019-09-02 08:01 | Diag Imaging Result Doc PS360 ---
EXAM: CHEST-PORTABLE INDICATION: resp. failure TECHNIQUE: One view COMPARISON: 09/01/2019 FINDINGS: There has been placement of a temperature probe. Support tubes and lines are in stable positions, otherwise. Bilateral vague infiltrates, more prominent on the right, are essentially stable. No new consolidation is identified. Cardiac silhouette is stable. IMPRESSION: Stable chest. Electronically signed by Yehuda Loja 09/02/2019 7:59 AM
[2019-09-02] MEDS: LANTUS INSULIN SUBQ SCH (09:22)
[2019-09-02] MEDS: MAXIPIME 2 GM in NS 100 ML IV SCH ×2 (09:22→20:15)
[2019-09-02] MEDS: FLOMAX PO SCH ×3 (09:23→22:06)
--- NOTE | 2019-09-02 10:59 | PROGRESS NOTE ---
DATE: 09/02/2019 SUBJECTIVE: Mr. Gauthier is intubated. He is sedated, appears comfortable. No real change from yesterday. OBJECTIVE: Vital Signs: He had a temperature of 100.4 degrees, pulse 78, respirations 15, blood pressure 123/84. Eyes: Pupils are equal and round. Lungs: Lungs are clear in all lung waters. Cardiovascular exam: Regular rhythm and rate without murmur or S3. : Urine output is 1800 mL. X-RAYS: Chest x-ray: Stable chest. Lines in stable position. ASSESSMENT AND PLAN: 1. Acute hypoxemic respiratory failure, acute hypercapnic respiratory failure. 2. Methicillin-resistant Staphylococcus aureus bacteremia. 3. Encephalopathy, possible from alcohol withdrawal and possible from thiamine deficiency, such as Wernicke's encephalopathy. 4. Poor controlled diabetes. Continue pattern sugars. 5. He has bilateral pulmonary infiltrates. So continue respiratory care. He is on daptomycin 600 mg intravenous every 24 hours. He is on linezolid 600 mg intravenous every 12 hours. LABS: From today, white count is down to 13,200, hematocrit is 30, platelet count is 374,000. Sodium 139, potassium 3.9, chloride 104. BUN 47, creatinine 2.0; creatinine has come up a little bit from 1.5. cc: Ulises Spicer MD
[2019-09-02] MEDS: CUBICIN 600 MG in NS 100 ML IV SCH (14:51)
[2019-09-02] MEDS: NS 1,000 ML IV SCH (15:00)
--- NOTE | 2019-09-02 22:00 | PULMONOLOGY PROGRESS NOTE ---
DATE: 09/02/2019 SUBJECTIVE: The patient is sedated, but responds to pain. OBJECTIVE: Maximum temperature in the last 24 hours, 100.4 degrees.HEENT: Pupils are equal and reactive. Oropharynx appears clear. Neck: Supple. Chest: Coarse rhonchi bilaterally. Cardiac: S1, S2. Abdomen: Obese and soft. Diminished bowel sounds. Extremities: Prior digital amputations of both feet. DIAGNOSTIC DATA: X-rays of the right and left foot are reviewed. X-rays of the right foot suggest erosive changes in the distal phalanx of the 3rd toe and in the head of the 2nd metatarsal, suggesting possible osteomyelitis. Changes also present in the left foot which are worrisome. Chest x-ray reveals vague bilateral infiltrates. Sputum cultures require more incubation. IMPRESSION: A 53-year-old with: 1. Acute hypoxemic respiratory failure. 2. Acute hypercapnic respiratory failure. 3. Methicillin-resistant Staphylococcus aureus bacteremia. 4. Suspected osteomyelitis in the right foot and possibly in the left. 5. Encephalopathy with possible alcohol withdrawal. 6. Poorly controlled diabetes mellitus. 7. Bilateral infiltrates consistent with pneumonia. PLAN: 1. Continue ventilatory support with adjustments made. 2. Continue tube feeds as tolerated. 3. Antibiotics under the direction of Dr. Jagjit Camargo. 4. Continue DVT prophylaxis. TIME SPENT IN CRITICAL CARE MANAGEMENT: 30 plus minutes. cc: Michael Goins MD
[2019-09-03] MEDS: DIPRIVAN 1% 1,000 MG/100 ML BOTTLE IV SCH ×8 (01:19→21:09)
[2019-09-03] MEDS: HUMALOG SUBQ SCH ×6 (02:53→20:37)
[2019-09-03] MEDS: DUONEB (A & A) INH SCH ×6 (03:12→23:13)
[2019-09-03] MEDS: ZYVOX 600 MG/D5W 600 MG/300 ML IVPB IV SCH ×2 (03:26→16:12)
[2019-09-03] MEDS: NS 1,000 ML IV SCH (03:27)
[2019-09-03] MEDS: APRESOLINE IV PRN (03:27)
[2019-09-03] MEDS: ATIVAN IV PRN ×4 (03:27→16:12)
[2019-09-03 05:26] LABS: ALLEN TEST YES; BE -0.9 mmoll (-3.0-3.0); BLOOD TYPE ARTERIAL; HCO3-(ACT) 24.2 mmoll (20.0-26.0); O2(CT) 8.7 mL/dL (15.0-23.0); O2HB 94.9 % (95.0-99.0); PCO2(98.6) 31 mmHg (35-45); PO2(98.6) 71 mmHg (60-100); SAMPLE BLOOD; SAO2 97.8 % (95.0-100.0); SRATE 12 BPM; THB 6.4 g/dL (11.5-17.4); TVOL 600 mL; pH(98.6) 7.47 (7.35-7.45)
[2019-09-03 05:27] LABS: MODALITY VENTILATOR
[2019-09-03 06:36] LABS: HEMATOCRIT 30.1 % (42.0-52.0); HEMOGLOBIN 10.1 g/dL (14.0-18.0); MCH 31.2 PG (27-31); MCHC 33.6 g/dL (33-37); MCV 92.9 FL (81-99); MPV 11.3 FL (7.4-10.4); RBC 3.24 XMIL (4.7-6.1); RDW 13.8 % (11.5-14.5); WBC 11.63 X1000 (4.8-10.8)
[2019-09-03 07:13] LABS: ALB/GLOB RATIO 0.5; ALBUMIN 2.3 g/dL (3.5-5.0); CALCIUM 8.4 mg/dL (8.8-10.2); CREATININE 1.6 mg/dL (0.7-1.2); POTASSIUM 3.1 mmol/L (3.5-5.1); TOTAL BILIRUBIN 0.71 mg/dL (0.20-1.00); TOTAL PROTEIN 7.1 g/dL (6.3-8.3)
[2019-09-03] MEDS: MAXIPIME 2 GM in NS 100 ML IV SCH ×2 (09:02→19:43)
[2019-09-03] MEDS: FLOMAX PO SCH ×2 (09:02→21:17)
[2019-09-03] MEDS: LANTUS INSULIN SUBQ SCH (09:03)
--- NOTE | 2019-09-03 13:09 | PROGRESS NOTE ---
DATE: 09/03/2019 SUBJECTIVE: Mr. Gauthier is still intubated. His daughter and ex- were in the room, and so we talked a while. OBJECTIVE: Vital signs: Temp was a 100.1 degrees, pulse 94, respirations 24, blood pressure 127/75. HEENT: Pupils are equal and round. Lungs: Clear in all lung waters. Cardiovascular: Regular rhythm and rate without murmur or S3. Output: Urine output was 3800 mL. ASSESSMENT AND PLAN: 1. Acute hypoxemic respiratory failure, acute hypercapnic respiratory failure, methicillin- resistant Staphylococcus aureus bacteremia. 2. Suspect osteomyelitis of the right foot, possible in the left. 3. Encephalopathy, possible result of long-term alcohol and alcohol withdrawal. He is getting thiamine. 4. Poorly controlled diabetes mellitus type 2. 5. Bilateral infiltrates consistent with pneumonia and suspect he was at risk for aspiration as well. 6. Continue his tube feeds as tolerated, his antibiotics. Looking at his orders, he is on clonidine patch 0.2 mg, getting daptomycin 6 mg IV q.24 hours. Gets hydralazine 10 mg IV p.r.n. hypertension, cefepime 2 g IV q.12h, linezolid 600 mg IV q.12h. LAB: From today, white count 11,630, which is down, hematocrit is 30, platelet count is a 146,000. Sodium 143, potassium 3.1, chloride 107, BUN 39, creatinine 1.6. Creatinine has come down from 2.0. The patient will continue his present orders and treatment. cc: Ulises Spicer MD
[2019-09-03] MEDS: CUBICIN 600 MG in NS 100 ML IV SCH (14:41)
--- NOTE | 2019-09-03 17:56 | PULMONOLOGY PROGRESS NOTE ---
DATE: 09/03/2019 SUBJECTIVE: The patient is sedated on mechanical ventilation. He appears to be comfortable. OBJECTIVE: Vital Signs: Maximum temperature in the last 24 hours 101.0 degrees, blood pressure 127/75, heart rate 94, respiratory rate 24, oxygen saturation 96%. HEENT: Pupils are equal and reactive. Oropharynx appears clear. Neck: Is supple. Chest: Reveals coarse rhonchi bilaterally. Cardiac exam: S1, S2. Abdomen: Is soft with good bowel sounds. Extremities: Reveal prior amputations. LABORATORIES: Chest x-ray reveals bilateral pulmonary infiltrates. Sputum culture is growing a gram-negative cheryl. White blood count 11.6, hemoglobin 10.1, platelet count 146,000. Sodium 143, potassium 3.1, chloride 107, bicarbonate 20, BUN 39, creatinine 1.6, glucose 154. Arterial blood gas reveals a pH 7.47, pCO2 of 31, PO2 of 71. IMPRESSION: A 53-year-old with 1. Acute hypoxemic respiratory failure. 2. Acute hypercapnic respiratory failure. 3. Methicillin-resistant Staphylococcus aureus bacteremia. 4. Osteomyelitis, possibly involving both feet. 5. Pneumonia with a gram-negative cheryl isolated. 6. Poorly controlled diabetes mellitus. 7. Encephalopathy. PLAN: 1. Continue ventilatory support pending clinical improvement. 2. Increase tube feeds as tolerated. 3. Continue antibiotics for pneumonia. 4. Continue antibiotics for possible osteoarthritis. TIME SPENT IN CRITICAL CARE MANAGEMENT: 30+ minutes. cc: Michael Goins MD
[2019-09-04] MEDS: DIPRIVAN 1% 1,000 MG/100 ML BOTTLE IV SCH ×9 (00:23→21:28)
[2019-09-04] MEDS: HUMALOG SUBQ SCH ×6 (01:32→21:00)
[2019-09-04] MEDS: NS 1,000 ML IV SCH ×2 (01:32→21:00)
[2019-09-04] MEDS: APRESOLINE IV PRN ×2 (01:47→11:34)
[2019-09-04] MEDS: DUONEB (A & A) INH SCH ×6 (02:33→23:04)
[2019-09-04] MEDS: ZYVOX 600 MG/D5W 600 MG/300 ML IVPB IV SCH ×2 (03:51→15:56)
[2019-09-04] MEDS: ATIVAN IV PRN ×3 (05:05→21:45)
[2019-09-04 05:23] LABS: ALLEN TEST YES; BE -0.9 mmoll (-3.0-3.0); BLOOD TYPE ARTERIAL; HCO3-(ACT) 24.3 mmoll (20.0-26.0); PCO2(98.6) 30 mmHg (35-45); PO2(98.6) 138 mmHg (60-100); SAMPLE BLOOD; SRATE 12 BPM; TVOL 600 mL; pH(98.6) 7.47 (7.35-7.45)
[2019-09-04 05:24] LABS: MODALITY VENTILATOR
[2019-09-04 07:18] LABS: MAGNESIUM 1.9 mg/dL (1.5-2.7); PHOSPHORUS 3.4 mg/dL (2.7-4.5)
--- NOTE | 2019-09-04 07:18 | Diag Imaging Result Doc PS360 ---
EXAM: CHEST-PORTABLE 09/04/2019 HISTORY: mechanical ventilator TECHNIQUE: AP portable at 0551 COMMENT: There is an endotracheal tube with its tip slightly below the thoracic inlet. There is an NG tube with its tip below the diaphragm presumably in the stomach or duodenum. There is interstitial opacity generally. The inspiration is suboptimal. There may be a pleural fluid collection on the right. Compared to 09/02/2019 the lungs are less well-expanded but otherwise there has been little change. IMPRESSION: Pulmonary edema and right pleural effusion. Electronically signed by Ashok Logan 09/04/2019 7:15 AM
[2019-09-04 07:20] LABS: ALB/GLOB RATIO 0.5; ALBUMIN 2.2 g/dL (3.5-5.0); CALCIUM 8.3 mg/dL (8.8-10.2); CREATININE 1.5 mg/dL (0.7-1.2); POTASSIUM 3.1 mmol/L (3.5-5.1); TOTAL BILIRUBIN 0.68 mg/dL (0.20-1.00); TOTAL PROTEIN 6.8 g/dL (6.3-8.3)
[2019-09-04 07:29] LABS: HEMATOCRIT 29.9 % (42.0-52.0); HEMOGLOBIN 9.7 g/dL (14.0-18.0); MCH 30.7 PG (27-31); MCHC 32.4 g/dL (33-37); MCV 94.6 FL (81-99); MPV 10.1 FL (7.4-10.4); RBC 3.16 XMIL (4.7-6.1); RDW 13.8 % (11.5-14.5); WBC 9.36 X1000 (4.8-10.8)
[2019-09-04] MEDS: MAXIPIME 2 GM in NS 100 ML IV SCH ×2 (08:58→19:46)
--- NOTE | 2019-09-04 09:58 | PROGRESS NOTE ---
DATE: 09/04/2019 SUBJECTIVE: He seems to be responding to touch and voice. He is still intubated. His abdomen seems mildly distended. It is hard to tell if it is uncomfortable. His feet did not show any sign of erythema or swelling or secretions OBJECTIVE: Vital Signs: Temperature 98.6 degrees, pulse 80, respirations 17. Lungs: Clear in all lung waters. Cardiovascular: Regular rhythm and rate without murmur or S3. Abdomen: Soft. Skin: Warm and dry. Urine output is 3300 mL. Chest x-ray from this morning, pulmonary edema and right pleural effusion. ASSESSMENT AND PLAN: 1. Acute hypoxemic respiratory failure, acute hypercapnic respiratory failure, methicillin- resistant Staphylococcus aureus bacteremia, so continue present antibiotics. 2. Question of whether he has osteomyelitis, so we will try and get some plain films and look. Dr. Camargo is following. 3. Pneumonia with gram-negative cheryl isolated. 4. Diabetes mellitus type 2, poorly controlled in the past. 5. Encephalopathy, recent alcohol withdrawal. We are replacing his thiamine. His nutrition he is tolerating well with tube feeding. REVIEW OF HIS ORDERS: He is on Tylenol 650 mg p.o. q.4 hours p.r.n., albuterol ipratropium treatments q.4 hours, clonidine patch in place 0.2 mg once a week, daptomycin 600 mg IV q.24 hours, Lantus insulin 20 units subcutaneous in the morning, labetalol 20 mg IV q.6 hours, cefepime 2 g IV q.12, metoprolol he takes as needed for elevated blood pressure, heart rate, and linezolid 600 mg IV q.12. LABORATORY DATA: Review of his electrolytes and lab this morning, white count was 9360, hematocrit 29, platelet count 332,000. Sodium 142, potassium 3.1, chloride 108, BUN 33, creatinine 1.5. The creatinine has come down from 2.0. cc: Ulises Spicer MD
[2019-09-04] MEDS: FLOMAX PO SCH ×2 (10:04→21:00)
[2019-09-04] MEDS: LANTUS INSULIN SUBQ SCH (10:07)
[2019-09-04] MEDS: TYLENOL PO PRN (11:34)
[2019-09-04] MEDS: CATAPRES-TTS-2 TD SCH (11:34)
--- NOTE | 2019-09-04 12:31 | INFECTIOUS DISEASE PROGRESS NO ---
DATE: 09/04/2019 PRESENT ILLNESS: The patient has methicillin-resistant Staph aureus pneumonia with an associated methicillin-resistant Staph aureus bacteremia. The patient has in addition to methicillin- resistant Staphylococcus aureus pneumonia, also there is an new element of a gram-negative cheryl bacterium also causing some of the pneumonia as manifested by the sputum which is growing a gram- negative cheryl. Dr. Goins, I think, rightfully so is concerned that the patient may have osteomyelitis of his feet. MEDICATIONS: The patient is on Zyvox and daptomycin now for 9 days. The Zyvox is for the patient's pneumonia, and the daptomycin is for the patient's bacteremia. The cefepime that I started 3 days ago is for the gram-negative cheryl that is growing from the patient's sputum. PHYSICAL EXAMINATION: Vital Signs: Temperature is 99 degrees, pulse 83, respirations 17, blood pressure 151/91. General: This is an ill-appearing, middle-aged male. He is intubated and sedated. Head/eyes/ears/nose/throat: The patient has an orotracheal tube and a nasogastric tube in place. Neck: No drainage from the nose or ears. The patient did not seem to have any pain when his neck was moved. Lungs: Bilateral rhonchi. Cardiovascular: Heart rate is regular. Abdomen: Soft and nontender. Extremities: The patient has a PICC in the right arm. The site is not erythematous or purulent. Neurologic: The patient is obtunded. He did not respond to verbal stimuli to me today. He does not have a tremor. LAB AND X-RAY: Chest x-ray shows pulmonary edema and right pleural effusion. The blood and urine cultures are negative. Sputum is growing a gram-negative cheryl. Blood gases are pH 7.47, a PO2 of 138, and pCO2 of 30. CBC shows a white count of 9360, hemoglobin 9.7, and platelet count 332,000. ASSESSMENT AND PLAN: I am going to continue daptomycin and Zyvox, and this is day 6 of both of them for the patient's methicillin-resistant Staphylococcus aureus pneumonia and bacteremia. I am also going to continue cefepime for the patient's gram-negative cheryl in his sputum, and that is 3 days now. As relating to the patient's possible osteomyelitis of his feet, I am going to get portable x-rays, and when he is able to be moved to Radiology I will get either a magnetic resonance imaging or a bone scan of both feet. COMORBIDITIES: The patient is a diabetic and an alcoholic. cc: Jagjit Camargo MD
[2019-09-04] MEDS: CUBICIN 600 MG in NS 100 ML IV SCH (14:42)
--- NOTE | 2019-09-04 18:56 | INFECTIOUS DISEASE PROGRESS NO ---
DATE: 09/04/2019 The patient had x-rays of both feet ordered by Dr. Goins and both of them show possible osteomyelitis of the left and right foot. My plan now would be that when the patient is able to go through with it I would get an MRI of both feet to confirm that the patient does indeed have osteomyelitis. cc: Jagjit Camargo MD
[2019-09-04] MEDS: LASIX IV SCH (21:28)
[2019-09-05] MEDS: DIPRIVAN 1% 1,000 MG/100 ML BOTTLE IV SCH ×4 (00:19→07:22)
[2019-09-05] MEDS: ATIVAN IV PRN (00:33)
[2019-09-05] MEDS: APRESOLINE IV PRN ×3 (00:38→21:07)
[2019-09-05] MEDS: HUMALOG SUBQ SCH ×6 (01:05→21:00)
[2019-09-05] MEDS: DUONEB (A & A) INH SCH ×6 (02:59→23:35)
[2019-09-05] MEDS: ZYVOX 600 MG/D5W 600 MG/300 ML IVPB IV SCH (03:20)
[2019-09-05] MEDS: LASIX IV SCH (03:20)
[2019-09-05 05:14] LABS: HEMOGLOBIN 10.3 g/dL (14.0-18.0); MCHC 32.2 g/dL (33-37); MCV 93.3 FL (81-99); MPV 10.7 FL (7.4-10.4); RBC 3.43 XMIL (4.7-6.1); RDW 13.6 % (11.5-14.5); WBC 9.7 X1000 (4.8-10.8)
[2019-09-05 05:16] LABS: ALLEN TEST YES; BE 0.7 mmoll (-3.0-3.0); BLOOD TYPE ARTERIAL; HCO3-(ACT) 25.4 mmoll (20.0-26.0); METHB 0.9 % (0.0-1.5); O2(CT) 14.5 mL/dL (15.0-23.0); O2HB 95.5 % (95.0-99.0); PCO2(98.6) 34 mmHg (35-45); PO2(98.6) 79 mmHg (60-100); SAMPLE BLOOD; SAO2 99.2 % (95.0-100.0); SRATE 12 BPM; THB 10.7 g/dL (11.5-17.4); TVOL 600 mL; pH(98.6) 7.46 (7.35-7.45)
[2019-09-05 05:17] LABS: MODALITY VENTILATOR
[2019-09-05 05:33] LABS: ALB/GLOB RATIO 0.4; ALBUMIN 2.2 g/dL (3.5-5.0); CALCIUM 8.8 mg/dL (8.8-10.2); CREATININE 1.3 mg/dL (0.7-1.2); TOTAL BILIRUBIN 0.71 mg/dL (0.20-1.00); TOTAL PROTEIN 7.3 g/dL (6.3-8.3)
--- NOTE | 2019-09-05 06:42 | Diag Imaging Result Doc PS360 ---
CHEST-PORTABLE - 09/05/2019 INDICATION: mechanical ventilator COMPARISON: 09/04/2019 FINDINGS: Support lines and tubes are stable and in good position. Stable critically low lung volumes. Stable cardiomegaly, pulmonary vascular congestion, and diffuse bilateral pulmonary edema. IMPRESSION: No change from prior. Electronically signed by Jacinto Avila 09/05/2019 6:40 AM
[2019-09-05] MEDS: TAZIDIME 2 GM/NS 2 GM/100 ML IVPB IV SCH ×2 (08:38→15:42)
[2019-09-05] MEDS: FLOMAX PO SCH ×2 (08:39→20:45)
[2019-09-05] MEDS: LANTUS INSULIN SUBQ SCH (08:39)
--- NOTE | 2019-09-05 08:54 | PULMONOLOGY PROGRESS NOTE ---
DATE: 09/04/2019 OBJECTIVE: Vital signs: The patient continues to have temperature spikes. Highest temperature in the last 24 hours 100.6 degrees. Blood pressure 142/85, heart rate 80, respiratory rate 20, oxygen saturation 98% on 45% FiO2. HEENT: Pupils are equal and reactive. Oropharynx appears clear. Neck: Supple. Chest: Reveals bilateral rhonchi. Cardiac exam: S1, S2. Abdomen: Obese and soft. Extremities: Unchanged. LABORATORY DATA: White blood count 9.36, hemoglobin 9.7, platelet count 332,000. Sodium 142, potassium 3.1, chloride 108, bicarbonate 19, BUN 33, creatinine 1.5, phosphorus 3.4, magnesium 1.9, albumin 2.2. IMAGING: Chest x-ray reveals pulmonary edema, bilateral infiltrates, and right- sided pleural effusion. IMPRESSION: A 53-year-old with: 1. Acute hypoxemic respiratory failure. 2. Acute hypercapnic respiratory failure. 3. Gram-negative pneumonia. 4. Methicillin-resistant Staphylococcus aureus bacteremia. 5. Possible osteomyelitis. 6. Poorly controlled diabetes mellitus. 7. Encephalopathy. PLAN: 1. Continue ventilatory support pending clinical improvement. We will initiate spontaneous breathing trials tomorrow. 2. Continue tube feeds as tolerated. 3. Continue antibiotics for pneumonia. 4. Continue antibiotics for possible osteomyelitis. Anticipate bone scan or MRI with clinical improvement as outlined by Dr. Camargo. Time spent and critical care management: 30+ minutes cc: Michael Goins MD [facility]
--- NOTE | 2019-09-05 11:08 | PROGRESS NOTE ---
DATE: 09/05/2019 SUBJECTIVE: This patient is still on mechanical ventilation and sedated. Chest x-ray today showed basically no changes. He does have diffuse bilateral pulmonary edema, cardiomegaly, vascular congestion, and likely also I can see some probably infiltrates at the bases. He has been admitted on 08/21/2019 due to DKA, possible alcohol withdrawal, an abnormal CT scan showing a prostate mass, hypertension. He seems to be making good urine. Kidney function is getting better. OBJECTIVE: Vital Signs: Temperature 99.3 degrees, pulse 79, respiratory rate 21, blood pressure 138/84, oxygen saturation 98 on mechanical ventilation. HEENT: Head normocephalic. No trauma. PERRLA. Neck: Supple. No JVD. No masses. Central trachea. Chest: Coarse breath sounds bilaterally with decreased breath sounds at the bases and rhonchi at the bases as well, mostly on the right side. Abdomen: Soft, but slightly distended. Positive bowel sounds. Extremities: Trace edema. No clubbing. No cyanosis. He has some amputations on some of his toes. I do not see any open wound. Neurological: The patient is on mechanical ventilation and sedated, but he is able to open a little bit his eyes when I call his name or when I touch him. LABORATORY DATA: WBC 9.7, hemoglobin 10.3, hematocrit 32, platelet 265,000. Sodium 140, potassium 3, chloride 104, bicarbonate 22, BUN 29, creatinine 1.3, glucose 202, calcium 8.8. AST 72, ALT 35, alkaline phosphatase 307, albumin 2.2. ASSESSMENT AND PLAN: 1. Bilateral lower lobe pneumonia. Continue with antibiotics per Infectious Disease Department. He is getting Zyvox for the pneumonia. We have a positive culture that showed Pseudomonas that is sensitive to ceftazidime, so we will put this patient on this. 2. Bacteremia with methicillin-resistant staphylococcus aureus. Continue with daptomycin per Infectious Disease Department. 3. Acute hypoxemic and hypercarbic respiratory failure. This patient has been placed on mechanical ventilation. Pulmonary Department following this patient closely. 4. Encephalopathy. Aware. 5. Possible osteomyelitis involving both feet. Will monitor. He has some abnormal x-rays. 6. Admitted due to diabetic ketoacidosis. He is not in diabetic ketoacidosis right now, but it looks like his diabetes has been poorly controlled. 7. Alcohol abuse with possible alcohol withdrawal during admission, now on mechanical ventilation. 8. Abnormal CT scan showing prostate mass versus abscess. He was seen by Urology Department before. Will monitor for now. CRITICAL CARE TIME: 35 minutes. cc: Flip Couch MD
[2019-09-05 11:13] LABS: ALLEN TEST YES; BLOOD TYPE ARTERIAL; HCO3-(ACT) 26.5 mmoll (20.0-26.0); METHB 0.4 % (0.0-1.5); O2(CT) 14.3 mL/dL (15.0-23.0); O2HB 95.7 % (95.0-99.0); PCO2(98.6) 35 mmHg (35-45); PO2(98.6) 74 mmHg (60-100); SAMPLE BLOOD; SAO2 98.9 % (95.0-100.0); THB 10.6 g/dL (11.5-17.4); pH(98.6) 7.47 (7.35-7.45)
[2019-09-05 11:14] LABS: MODALITY VENTILATOR
[2019-09-05] MEDS: CUBICIN 600 MG in NS 100 ML IV SCH (14:17)
[2019-09-05] MEDS: OFIRMEV 1000 MG/ISOTONIC SOLN 1,000 MG/100 ML BOTTLE IV PRN (15:42)
[2019-09-05] MEDS: NS 1,000 ML IV SCH ×2 (15:54→16:25)
[2019-09-05] MEDS: LABETALOL IV PRN (15:54)
--- NOTE | 2019-09-05 17:31 | INFECTIOUS DISEASE PROGRESS NO ---
DATE: 09/05/2019 PRESENT ILLNESS: The patient has a methicillin-resistant Staphylococcus aureus bacteremia. Also, I have discovered today that he has a Pseudomonas pneumonia and not a methicillin-resistant Staphylococcus aureus pneumonia. In addition, the patient may have osteomyelitis of both feet. MEDICATIONS: The patient has been on daptomycin now for 11 days. I have discontinued cefepime and instead placed the patient on ceftazidime. I have stopped the Zyvox. PHYSICAL EXAMINATION: Vital Signs: Temperature is 99.3 degrees, pulse 79, respirations 21, blood pressure is 138/84. General: This is an ill-appearing, middle-aged male. He is intubated and sedated. Head, eyes, ears, nose, throat: The patient has a nasogastric tube and an orotracheal tube in place. There is no drainage from the nose or ears. Neck: There did not seem to be any pain when I passively moved his neck. Lungs: Bilateral rhonchi. Cardiovascular: Heart rate is regular. Abdomen: Soft and nontender. Extremities: The patient has a PICC in the right arm. The site is not erythematous or purulent. Neurologic: The patient is obtunded. He did not respond to verbal stimuli. He does not have a tremor. LAB AND X-RAY: The patient's sputum grew Pseudomonas which was resistant to cefepime, but susceptible to ceftazidime and Levaquin. The patient's CBC shows a white count of 9700, hemoglobin 10.3, and platelet count 265,000. Blood gases show a pH 7.46, a PO2 of 79, a pCO2 of 34. Creatinine of 1.3, GFR of 57. Alkaline phosphatase is 307. ASSESSMENT AND PLAN: The patient has methicillin-resistant Staphylococcus aureus bacteremia for which I am going to continue treatment with daptomycin. The patient has a Pseudomonas pneumonia for which I am going to treat the patient with ceftazidime. The patient may have osteomyelitis of his feet. I aspirated both feet under sterile conditions and obtained some blood from the left foot, but no drainage from the right foot. I did, however, send this blood to the lab for culture. As I mentioned yesterday, when the patient is able to be moved, I will get an MRI of his feet to see if it looks like he has active bone infection. COMORBIDITIES: The patient is a diabetic and alcoholic. cc: Jagjit Camargo MD
[2019-09-05] MEDS: HALDOL IV PRN (23:03)
[2019-09-06] MEDS: TAZIDIME 2 GM/NS 2 GM/100 ML IVPB IV SCH ×4 (00:58→23:22)
[2019-09-06] MEDS: HUMALOG SUBQ SCH ×6 (01:10→21:00)
[2019-09-06] MEDS: APRESOLINE IV PRN ×2 (02:58→10:07)
[2019-09-06] MEDS: DUONEB (A & A) INH SCH ×6 (03:02→23:43)
[2019-09-06 04:56] LABS: HEMOGLOBIN 10.2 g/dL (14.0-18.0); MCH 29.7 PG (27-31); MCHC 31.9 g/dL (33-37); MCV 93.3 FL (81-99); MPV 10.4 FL (7.4-10.4); RBC 3.43 XMIL (4.7-6.1); RDW 13.4 % (11.5-14.5); WBC 12.12 X1000 (4.8-10.8)
[2019-09-06] MEDS: HALDOL IV PRN ×2 (05:01→20:37)
[2019-09-06 05:03] LABS: ALLEN TEST YES; BE -0.3 mmoll (-3.0-3.0); BLOOD TYPE ARTERIAL; HCO3-(ACT) 24.5 mmoll (20.0-26.0); METHB 0.8 % (0.0-1.5); O2(CT) 21.6 mL/dL (15.0-23.0); O2HB 92.6 % (95.0-99.0); PCO2(98.6) 38 mmHg (35-45); PO2(98.6) 70 mmHg (60-100); SAMPLE BLOOD; SAO2 95.6 % (95.0-100.0); THB 16.6 g/dL (11.5-17.4); pH(98.6) 7.41 (7.35-7.45)
[2019-09-06 05:04] LABS: MODALITY COOL AEROSOL
[2019-09-06 05:25] LABS: MAGNESIUM 1.7 mg/dL (1.5-2.7); PHOSPHORUS 3.1 mg/dL (2.7-4.5)
[2019-09-06 05:43] LABS: ALB/GLOB RATIO 0.6; ALBUMIN 2.7 g/dL (3.5-5.0); CALCIUM 8.9 mg/dL (8.8-10.2); CREATININE 1.3 mg/dL (0.7-1.2); TOTAL BILIRUBIN 1.2 mg/dL (0.20-1.00); TOTAL PROTEIN 7.6 g/dL (6.3-8.3)
[2019-09-06 05:54] LABS: POTASSIUM 2.6 mmol/L (3.5-5.1)
[2019-09-06] MEDS: LABETALOL IV PRN ×2 (06:39→08:23)
--- NOTE | 2019-09-06 07:40 | Diag Imaging Result Doc PS360 ---
CHEST-PORTABLE - 09/06/2019 INDICATION: mechanical ventilator COMPARISON: 09/05/2019 FINDINGS: The patient has been x-ray. Stable right PICC line in good position. Lung volumes are improved but still severely low. Stable significant cardiomegaly and pulmonary vascular congestion. Stable central pulmonary edema. There is improved aeration of the left lower lobe with better visualization of the hemidiaphragm. IMPRESSION: Patient extubated. Improved aeration of the left lower lobe. Electronically signed by Jacinto Avila 09/06/2019 7:38 AM
[2019-09-06] MEDS: LANTUS INSULIN SUBQ SCH (08:22)
--- NOTE | 2019-09-06 08:50 | PROGRESS NOTE ---
DATE: 09/06/2019 SUBJECTIVE: This patient has been extubated yesterday, he is on a Ventimask at this moment, he is requesting some water and he has been doing okay with ice chips, so I will give him some water and also I will request an evaluation by the swallow team. He was initially admitted due to DKA on 08/21/2019, possible alcohol withdrawal, abnormal CT scan showed prostate mass, hypertension. He seems to be making good urine. He got a urine output of 3.3 L even though he is not on any diuretics at this moment. He is awake. He is oriented. He is following commands. He does have some tremors mostly upper extremities. OBJECTIVE: Vital Signs: Temperature 97.9 degrees, pulse 85, respiratory rate 18, blood pressure 188/110, oxygen saturation 94% on a Venturi mask. HEENT: Head normocephalic, no trauma. PERRLA. Neck: Supple. No JVD. No masses. Central trachea. Chest: Coarse breath sounds bilaterally. Decreased breath sounds at the bases with rhonchi at the bases as well mostly on the right side. Abdomen: Soft, slightly distended, but positive bowel sounds. Extremities: Trace edema. No clubbing, no cyanosis. He has some amputation of some of his toes, but there is not any open wound. Neurological: The patient is alert. He is following commands. He does have tremors mostly at the level of the upper extremities. LABORATORY: WBC 12.1, hemoglobin 10.2, hematocrit 32, platelets 187,000 sodium 144, potassium 2.6, chloride 105, bicarbonate 22, BUN 26, creatinine 1.3, glucose 107, calcium 8.9, albumin 2.7. ASSESSMENT AND PLAN: 1. Bilateral lower lobe pneumonia. Continue with antibiotics per Infectious Disease Department. 2. Bacteremia with methicillin-resistant Staphylococcus aureus. Continue with daptomycin per Infectious Disease Department. 3. Acute hypoxemic and hypercarbic respiratory failure. The patient has been extubated yesterday. He seems to be awake and oriented. He is following commands. He is on a Ventimask at this moment. 4. Encephalopathy, better. 5. Possible osteomyelitis involving both feet, Infectious Disease Department on board. 6. Admitted due to diabetic ketoacidosis, resolved. 7. Alcohol abuse with possible alcohol withdrawal during admission, now this patient seems to be having some tremors. As per the patient this is chronic. We will keep an eye on him. 8. Abnormal CT scan showed a prostate mass versus abscess, he has been seen already by Urology department before and we will just monitor for now. 9. Nutritional status. I have requested a swallow evaluation today. He has been on IV fluids. He pulled out his NG tube yesterday, I will start giving him some ice chips and water at this moment and start a diet today hopefully. cc: Flip Couch MD
[2019-09-06] MEDS: FLOMAX PO SCH ×2 (08:59→20:37)
[2019-09-06] MEDS: NS 1,000 ML IV SCH (12:06)
[2019-09-06] MEDS ORDERED: CATAPRES PO ONE (12:42)
[2019-09-06] MEDS: CUBICIN 600 MG in NS 100 ML IV SCH (14:05)
[2019-09-06] MEDS: APRESOLINE PO SCH ×2 (14:05→20:37)
--- NOTE | 2019-09-06 15:18 | INFECTIOUS DISEASE PROGRESS NO ---
DATE: 09/06/2019 PRESENT ILLNESS: The patient has methicillin-resistant Staph aureus bacteremia, a Pseudomonas pneumonia, and probable osteomyelitis of both feet. MEDICATIONS: This is the 12th day of treatment with daptomycin and the first day of treatment for ceftazidime. The daptomycin is for the patient's methicillin-resistant Staph aureus bacteremia and also for osteomyelitis of both feet. The patient's ceftazidime is for the patient's Pseudomonas pneumonia. PHYSICAL EXAMINATION: Vital Signs: Temperature is 97.9 degrees, pulse 85, respirations 18, blood pressure 188/110. General: This is an ill-appearing, middle-aged male. He is extubated. He is awake and talking. He does not have any white patches in his mouth. All of his tubes have been removed. Neck: No stiffness. Lungs: Clear to auscultation. Cardiovascular: Heart rate is irregular today. Extremities: The patient has a PICC in his right arm. The site is not purulent or erythematous. Neurologic: The patient is awake. He can carry on a coherent conversation. He can move his extremities. There is no tremor. LAB AND X-RAY: Chest x-ray shows improvement in the patient's left lower lobe infiltrate. A culture from the patient's left foot is pending. CK is 33. Alkaline phosphatase is 283. Creatinine is 1.3. GFR is 57. Blood gases show a pH of 7.41, a PO2 of 70, and a pCO2 of 38. The patient's CBC shows a white count of 12,120, hemoglobin 10.2, and platelet count 187,000. ASSESSMENT AND PLAN: Patient has methicillin-resistant Staphylococcus aureus bacteremia for which I am going to treat the patient with daptomycin. For the patient's Pseudomonas pneumonia, I am going to continue ceftazidime, and for the patient's possible bilateral foot osteomyelitis, both daptomycin and ceftazidime could be treating the osteomyelitis. When the patient is able to go and leave the went when the patient is able to live leave his bed, I will go ahead and get an MRI of the feet to see if there is active osteomyelitis occurring. Also pending is the patient's left foot aspirate. COMORBIDITIES: The patient is a diabetic and an alcoholic. cc: Jagjit Camargo MD
[2019-09-06] MEDS: CATAPRES PO SCH (20:37)
[2019-09-07] MEDS: APRESOLINE IV PRN (00:06)
[2019-09-07] MEDS: HUMALOG SUBQ SCH ×6 (02:07→21:13)
[2019-09-07] MEDS: HALDOL IV PRN ×4 (02:08→20:22)
[2019-09-07] MEDS: DUONEB (A & A) INH SCH ×6 (03:40→22:54)
[2019-09-07 05:43] LABS: ALLEN TEST YES; BE 1.8 mmoll (-3.0-3.0); BLOOD TYPE ARTERIAL; HCO3-(ACT) 26.3 mmoll (20.0-26.0); METHB 0.9 % (0.0-1.5); O2(CT) 16.4 mL/dL (15.0-23.0); O2HB 96.2 % (95.0-99.0); PCO2(98.6) 37 mmHg (35-45); PO2(98.6) 97 mmHg (60-100); SAMPLE BLOOD; SAO2 99.8 % (95.0-100.0); pH(98.6) 7.45 (7.35-7.45)
[2019-09-07 05:44] LABS: MODALITY COOL AEROSOL
[2019-09-07 05:45] LABS: HEMATOCRIT 30.9 % (42.0-52.0); HEMOGLOBIN 9.7 g/dL (14.0-18.0); MCHC 31.4 g/dL (33-37); MCV 92.5 FL (81-99); MPV 10.5 FL (7.4-10.4); RBC 3.34 XMIL (4.7-6.1); RDW 13.3 % (11.5-14.5); WBC 11.03 X1000 (4.8-10.8)
[2019-09-07 06:21] LABS: AGAP 14; ALB/GLOB RATIO 0.5; ALBUMIN 2.3 g/dL (3.5-5.0); ALKALINE PHOSPHATASE 240 U/L (32-122); BUN 20 mg/dL (8-22); CALCIUM 8.8 mg/dL (8.8-10.2); CHLORIDE 101 mmol/L (98-107); COSMO 276; CREATININE 0.9 mg/dL (0.7-1.2); ESTIMATED GFR > 60; GLUCOSE 89 mg/dL (70-104); GOT 93 U/L (10-34); GPT 36 U/L (10-44); SODIUM 137 mmol/L (136-145); TCO2 22 mmol/L (25-35); TOTAL BILIRUBIN 1.01 mg/dL (0.20-1.00); TOTAL PROTEIN 6.7 g/dL (6.3-8.3)
[2019-09-07 06:22] LABS: POTASSIUM 2.3 mmol/L (3.5-5.1)
[2019-09-07] MEDS ORDERED: POTASSIUM CHLORIDE 40 MEQ/SWI 40 MEQ/100 ML IVPB IV ONE (06:30)
[2019-09-07] MEDS ORDERED: KLOR-CON PO ONE (06:30)
[2019-09-07] MEDS: LABETALOL IV PRN (06:42)
--- NOTE | 2019-09-07 07:35 | Diag Imaging Result Doc PS360 ---
EXAM: CHEST-PORTABLE HISTORY: mechanical ventilator TECHNIQUE: Single view COMPARISON: 09/06/2019 FINDINGS: No change in the right PICC line. Poor inspiratory effort. There is pulmonary edema as well as basilar atelectasis and infiltrates on the right. The heart is mildly prominent. IMPRESSION: No interval improvement. Electronically signed by Trent Moura 09/07/2019 7:33 AM
[2019-09-07] MEDS: APRESOLINE PO SCH ×3 (08:06→20:22)
[2019-09-07] MEDS: CATAPRES PO SCH ×2 (08:07→20:22)
[2019-09-07] MEDS: LANTUS INSULIN SUBQ SCH (08:07)
[2019-09-07] MEDS: FLOMAX PO SCH ×2 (08:07→20:22)
[2019-09-07] MEDS: NORVASC PO SCH ×2 (08:07→20:22)
[2019-09-07] MEDS: TAZIDIME 2 GM/NS 2 GM/100 ML IVPB IV SCH ×3 (08:08→23:03)
[2019-09-07] MEDS ORDERED: KLOR-CON PO SCH (09:00)
--- NOTE | 2019-09-07 10:56 | PROGRESS NOTE ---
DATE: 09/07/2019 SUBJECTIVE: The patient has been extubated 2 days ago. He is on a Ventimask at this moment. He is tolerating p.o. Initially admitted due to DKA on 08/21/2019 and possible alcohol withdrawal. He seems to be feeling better. His kidney function is improving and actually his BUN and creatinine today is normal. Potassium level is low and I will replace it. OBJECTIVE: Vital Signs: Temperature 98.7 degrees, pulse 84, respiratory rate 16, blood pressure 153/99, oxygen saturation 97% on a Venturi mask. HEENT: Head normocephalic, no trauma. PERRLA. Neck: Supple. No JVD. No masses. Central trachea. Chest: Coarse breath sounds bilaterally. Decreased breath sounds at the bases with rhonchi at the bases as well, mostly on the right side. Abdomen: Soft, slightly distended but positive bowel sounds. Extremities: Trace edema. No clubbing, no cyanosis. 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 There is not an open wound. Neurological: Patient is alert. He is following commands. He does have tremors mostly at the level of the upper extremities. LABORATORY DATA: WBC 11, hemoglobin 9.7, hematocrit 30.9, platelets 249,000. Sodium 137, potassium 2.3, chloride 101, bicarbonate 22, BUN 20, creatinine 0.9, glucose 89, calcium 8.8. AST 93, ALT 36, alkaline phosphatase 240, albumin 2.3. ASSESSMENT AND PLAN: 1. Bilateral lower lobe pneumonia. Continue antibiotics per Infectious Disease Department. 2. Bacteremia with Methicillin-resistant Staphylococcus aureus. Continue with daptomycin. This patient seems to be doing better. 3. Acute hypoxemic and hypercarbic respiratory failure. This patient has been extubated 2 days ago. He seems to be awake and oriented. He is following commands. He is on a Ventimask at this moment. 4. Encephalopathy, resolved. 5. Possible osteomyelitis involving both feet. Infectious Disease Department on board. 6. Admitted due to diabetic ketoacidosis, resolved. 7. Alcohol abuse with possible alcohol withdrawal during admission, seems to be having some tremors. He is still requesting Haldol to be more calm, as per the patient this is chronic. We will keep an eye on him. 8. Abnormal CT scan that showed a prostate mass versus abscess. He has been already evaluated by Urology Department and we will just monitor for now. 9. Nutritional status. He is tolerating p.o. He passed a swallow evaluation. He has been placed on a diabetic diet. 10. Hypertension. I have readjusted his medications. He is on clonidine twice a day and I will increase the dose of hydralazine and I will add amlodipine. Also he has some medications as needed, and I will stop the normal saline. Chest x-ray about the same compared with yesterday. 11. Acute kidney injury. Today the BUN and creatinine are normal. He is having good urine output. We will monitor for now. cc: Flip Couch MD
--- NOTE | 2019-09-07 11:02 | INFECTIOUS DISEASE PROGRESS NO ---
DATE: 09/07/2019 PRESENT ILLNESS: The patient has been treated now for his methicillin-resistant Staph aureus bacteremia and it is been cleared. The patient does have a Pseudomonas pneumonia and probable osteomyelitis of both feet. MEDICATIONS: This is the 13th day of daptomycin for treatment of the bacteremia. Tomorrow will be his last dose for the bacteremia. The patient is on day 2 of treatment with ceftazidime which is treating the patient's Pseudomonas pneumonia and finally as regarding the patient's osteomyelitis of both feet I am going to continue daptomycin, even though by tomorrow he will have completed a 14 day treatment course because the patient may have osteomyelitis, which will require anywhere from 6 to 8 weeks of IV antibiotic therapy. Also, I will be continuing ceftazidime for the patient's Pseudomonas pneumonia and also the patient may have a gram-negative cheryl organism causing the pneumonia as well as Staph and ceftazidime will be treating the gram-negative cheryl component. PHYSICAL EXAMINATION: Vital Signs: Temperature is 98.7 degrees, pulse 84, respirations 16, blood pressure 153/99. General: This is an ill-appearing, middle-aged male. He is extubated. He is alert and talks in a coherent fashion. Head/eyes/ears/nose/throat: He can hear my spoken words and see near objects. He does not have any white patches in his mouth. Neck: No pain with movement. Lungs: Clear to auscultation. Cardiovascular: Today the patient's heart rate sounds regular. Abdomen: Soft and nontender. Extremities: Both feet are not erythematous or draining. The patient has a PICC in his right arm. The site is not purulent or tender. Neurologic: The patient is alert. He talks in a coherent fashion. He can move his extremities. There is no tremor. LAB AND X-RAY: Chest x-ray shows pulmonary edema and also shows in the right base atelectasis versus infiltrate. The CK is 33. CBC shows a white count of 11,030, hemoglobin 9.7, and platelet count 249,000. Blood gases show a pH of 7.45, a PO2 of 97, and a pCO2 of 37. Creatinine is 0.9. GFR is greater than 60, alkaline phosphatase is 240. Cultures taken from the patient's feet are negative. ASSESSMENT AND PLAN: Tomorrow will be the 14th day of treatment of the patient's bacteremia. I am going to continue daptomycin as mentioned above, because the patient may have osteomyelitis of both feet. This is day 2 of treatment with ceftazidime for the patient's Pseudomonas pneumonia. I plan to treat at least 14 days with ceftazidime and after that I may well continue with the ceftazidime along with the daptomycin for the patient's possible bilateral foot osteomyelitis. COMORBIDITIES: The patient is a diabetic and an alcoholic. cc: Jagjit Camargo MD
[2019-09-07] MEDS: CUBICIN 600 MG in NS 100 ML IV SCH (16:21)
[2019-09-08] MEDS: HUMALOG SUBQ SCH ×6 (00:18→21:31)
[2019-09-08] MEDS: DUONEB (A & A) INH SCH ×6 (03:21→23:06)
[2019-09-08] MEDS: HALDOL IV PRN ×4 (04:22→23:19)
[2019-09-08] MEDS: APRESOLINE IV PRN ×2 (05:37→23:54)
--- NOTE | 2019-09-08 07:03 | Diag Imaging Result Doc PS360 ---
EXAM: CHEST-PORTABLE HISTORY: mechanical ventilator TECHNIQUE: Single view COMPARISON: 09/07/2019 FINDINGS: Poor inspiratory effort. The right hemidiaphragm is elevated. Heart remains enlarged. Pulmonary edema is less pronounced. No change in the right subclavian portacatheter. IMPRESSION: Mild interval improvement Electronically signed by Trent Moura 09/08/2019 7:00 AM
[2019-09-08 07:25] LABS: HEMATOCRIT 31.5 % (42.0-52.0); MCH 29.5 PG (27-31); MCHC 31.7 g/dL (33-37); MCV 92.9 FL (81-99); MPV 10.4 FL (7.4-10.4); RBC 3.39 XMIL (4.7-6.1); RDW 13.5 % (11.5-14.5); WBC 8.96 X1000 (4.8-10.8)
[2019-09-08] MEDS: APRESOLINE PO SCH ×4 (07:52→20:13)
[2019-09-08] MEDS: TAZIDIME 2 GM/NS 2 GM/100 ML IVPB IV SCH ×3 (07:53→23:53)
[2019-09-08] MEDS: FLOMAX PO SCH ×3 (07:53→20:13)
[2019-09-08] MEDS: CATAPRES PO SCH ×3 (07:53→20:13)
[2019-09-08] MEDS: NORVASC PO SCH ×3 (07:53→20:12)
[2019-09-08 08:39] LABS: AGAP 17; ALB/GLOB RATIO 0.6; ALBUMIN 2.7 g/dL (3.5-5.0); ALKALINE PHOSPHATASE 268 U/L (32-122); BUN 17 mg/dL (8-22); CALCIUM 9.3 mg/dL (8.8-10.2); CHLORIDE 102 mmol/L (98-107); COSMO 286; GLUCOSE 90 mg/dL (70-104); GOT 131 U/L (10-34); GPT 50 U/L (10-44); POTASSIUM 2.9 mmol/L (3.5-5.1); SODIUM 143 mmol/L (136-145); TCO2 24 mmol/L (25-35); TOTAL BILIRUBIN 0.95 mg/dL (0.20-1.00); TOTAL PROTEIN 7.4 g/dL (6.3-8.3)
--- NOTE | 2019-09-08 08:49 | PROGRESS NOTE ---
DATE: 09/08/2019 SUBJECTIVE: The patient was extubated 3 days ago. He is now using a nasal cannula. He is slightly tachycardic, likely due to his current breathing treatment. No chest pain. He has no complaint of shortness of breath, some anxiety. Pending lab work, especially CMP at this moment. OBJECTIVE: Vital Signs: Temperature 98.3 degrees, pulse 114, respiratory rate 24, blood pressure 195/116, oxygen saturation 94% on 4 L of nasal cannula. Chest x-ray showed mild interval improvement. HEENT: Head normocephalic. No trauma. PERRLA. Neck: Supple. No JVD. No masses. Central trachea. Chest: Coarse breath sounds, mostly at the bases with some rhonchi at the bases as well, mostly on the right side. Abdomen: Soft, slightly distended, but positive bowel sounds. Extremities: Trace edema. No clubbing. No cyanosis. He has an amputation of some of his toes bilaterally, no open wound detected. Neurological: The patient is awake and alert. He is following commands. He does have some generalized tremors, mostly upper extremities. LABORATORY: WBC 8.9, hemoglobin 10, hematocrit 31.5, platelets 209,000. ASSESSMENT AND PLAN: 1. Bilateral lower lobe pneumonia continue with antibiotics per Infectious Disease Department. 2. Bacteremia with MRSA. Continue with daptomycin. The patient seems to be doing better. 3. Acute hypoxemic and hypercarbic respiratory failure, status post extubation 3 days ago. He is awake, alert, and he is oriented. He is following commands. He is on nasal cannula at this moment. 4. Encephalopathy, resolved. 5. Possible osteomyelitis involving both feet, Infectious Disease Department on board. Continue with the same management. 6. Admitted due to DKA, resolved. 7. Alcohol abuse with possible alcohol withdrawal during admission. He seems to be better, but still having some tremors. He is still requesting some Haldol to be more relaxed. 8. Abnormal CT scan that showed a prostate mass versus abscess. He has already been evaluated by the Urology Department. Once this patient is better he will need to follow up with them as an outpatient. 9. Nutritional status. He is tolerating p.o. He passed a swallow evaluation. 10. Hypertension. I readjusted, again, his medications today. I have increased the dose of the clonidine today and yesterday I readjusted the dose of the hydralazine and added amlodipine. 11. Acute kidney injury. BUN and creatinine normal yesterday. He is having good urine output. Pending CMP today. cc: Flip Couch MD
[2019-09-08] MEDS: LANTUS INSULIN SUBQ SCH (09:33)
[2019-09-08] MEDS ORDERED: POTASSIUM CHLORIDE 40 MEQ/SWI 40 MEQ/100 ML IVPB IV ONE ×2 (09:37→19:21)
[2019-09-08 09:39] LABS: MAGNESIUM 1.5 mg/dL (1.5-2.7); PHOSPHORUS 3.1 mg/dL (2.7-4.5)
--- NOTE | 2019-09-08 11:30 | INFECTIOUS DISEASE PROGRESS NO ---
DATE: 09/08/2019 PRESENT ILLNESS: Currently the patient is being treated for Pseudomonas pneumonia and probable osteomyelitis of both feet. MEDICATIONS: This is the 14th day of treatment with daptomycin and the third day of treatment with ceftazidime. PHYSICAL EXAMINATION: Vital Signs: Temperature is 97 degrees, pulse 114, respirations 24, blood pressure is 177/109. General: This is an ill-appearing middle-aged male. He is in no acute distress. Head/eyes/ears/nose/throat: He can hear my spoken words and see near objects. There is no white coating on his tongue. Neck: No pain with movement. Lungs: Clear to auscultation. Cardiovascular: Heart rate is regular. Abdomen: Soft, nontender. Extremities: Both feet are not erythematous or tender. LAB AND X-RAY: Chest x-ray shows left congestion. The patient's CBC shows a white count of 8960, hemoglobin 10, platelet count 209,000. The patient's alkaline phosphatase is 268. The patient's creatinine is 1. Chest x-ray shows less congestion. Culture from the patient's left foot aspirate is negative. ASSESSMENT AND PLAN: The patient is being treated currently for Pseudomonas pneumonia and possible and osteomyelitis of the feet. My plan is to continue both daptomycin and ceftazidime and at the first of the week to get a MRI to see there is active bone osteomyelitis. COMORBIDITIES: The patient has diabetes mellitus and also he is an alcoholic. cc: Jagjit Camargo MD
[2019-09-08] MEDS: CUBICIN 600 MG in NS 100 ML IV SCH (14:58)
[2019-09-08] MEDS: POTASSIUM CHLORIDE 20 MEQ/SWI 20 MEQ/100 ML IVPB IV SCH ×2 (20:14→21:32)
[2019-09-09] MEDS: HUMALOG SUBQ SCH ×6 (01:35→20:22)
[2019-09-09] MEDS: DUONEB (A & A) INH SCH ×6 (04:38→23:19)
[2019-09-09] MEDS: TYLENOL PO PRN ×2 (06:27→12:15)
[2019-09-09] MEDS: LABETALOL IV PRN (06:27)
[2019-09-09] MEDS: HALDOL IV PRN ×3 (06:27→20:22)
[2019-09-09] MEDS: POTASSIUM CHLORIDE 20 MEQ/SWI 20 MEQ/100 ML IVPB IV SCH ×2 (06:28→08:30)
[2019-09-09 06:45] LABS: HEMATOCRIT 31.9 % (42.0-52.0); HEMOGLOBIN 10.2 g/dL (14.0-18.0); MCH 29.8 PG (27-31); MCV 93.3 FL (81-99); MPV 9.8 FL (7.4-10.4); RBC 3.42 XMIL (4.7-6.1); RDW 13.5 % (11.5-14.5); WBC 8.34 X1000 (4.8-10.8)
[2019-09-09 07:04] LABS: AGAP 15; ALB/GLOB RATIO 0.6; ALBUMIN 2.8 g/dL (3.5-5.0); ALKALINE PHOSPHATASE 273 U/L (32-122); BUN 14 mg/dL (8-22); CALCIUM 9.6 mg/dL (8.8-10.2); CHLORIDE 100 mmol/L (98-107); COSMO 277; ESTIMATED GFR > 60; GLUCOSE 146 mg/dL (70-104); GOT 97 U/L (10-34); GPT 47 U/L (10-44); POTASSIUM 3.1 mmol/L (3.5-5.1); SODIUM 137 mmol/L (136-145); TCO2 22 mmol/L (25-35); TOTAL BILIRUBIN 0.89 mg/dL (0.20-1.00); TOTAL PROTEIN 7.7 g/dL (6.3-8.3)
[2019-09-09 07:11] LABS: MAGNESIUM 1.5 mg/dL (1.5-2.7); PHOSPHORUS 3.1 mg/dL (2.7-4.5)
--- NOTE | 2019-09-09 08:24 | Diag Imaging Result Doc PS360 ---
EXAM: CHEST-PORTABLE - 09/09/2019 HISTORY: mechanical ventilator TECHNIQUE: Portable chest COMPARISON: 09/08/2019 FINDINGS: There is elevation right hemidiaphragm similar to prior. Cardiomegaly, mild vascular congestion, and right basilar subsegmental atelectasis similar to prior. There is no evidence of pneumothorax. The tip of the PICC now extends horizontally towards the left apparently into the distal left innominate vein. IMPRESSION: Cardiomegaly, mild vascular congestion, mild right basilar atelectasis similar to prior. The tip of the PICC now appears to extend into the distal left innominate vein. Electronically signed by Chung Tapia 09/09/2019 8:21 AM
[2019-09-09] MEDS: TAZIDIME 2 GM/NS 2 GM/100 ML IVPB IV SCH ×3 (08:33→23:22)
[2019-09-09] MEDS: CATAPRES PO SCH ×2 (08:36→20:22)
[2019-09-09] MEDS: NORVASC PO SCH ×2 (08:36→20:22)
[2019-09-09] MEDS: APRESOLINE PO SCH ×3 (08:36→20:22)
[2019-09-09] MEDS: FLOMAX PO SCH ×2 (08:36→20:22)
[2019-09-09] MEDS: LOPRESSOR PO SCH ×2 (08:47→20:22)
[2019-09-09] MEDS: PAXIL PO SCH (08:47)
--- NOTE | 2019-09-09 09:34 | PROGRESS NOTE ---
DATE: 09/09/2019 SUBJECTIVE: The patient has been extubated 4 days ago. He is tolerating the nasal cannula. He is still slightly tachycardic. His blood pressure is still high. I will put this patient on paroxetine and also metoprolol to see how he does. I will continue with the rest of the medications and physical therapy. He is complaining of some leg weakness which is chronic. OBJECTIVE: Vital signs: Temperature 98.5 degrees, pulse 99, respiratory rate 20, blood pressure 192/109, oxygen saturation 95% on 3 L of nasal cannula. HEENT: Head normocephalic. No trauma. PERRLA. Neck is supple. No JVD. No masses. Central trachea. Chest: Coarse breath sounds mostly at the bases with some rhonchi at the bases as well, mostly on the right base. Abdomen is soft, slightly distended. Positive bowel sounds. Extremities: Trace edema. No clubbing. No cyanosis. He has an amputation on some of his toes bilaterally. No open wound detected. Neurological: The patient is awake, alert. He is following commands. He is answering all my questions. He does have generalized tremors and generalized weakness. LABORATORY: WBC 8.3, hemoglobin 10.2, hematocrit 31.9, platelets 410,000. Sodium 137, potassium 3.2, chloride 100, bicarbonate 22, BUN 14, creatinine 1, glucose 146, calcium 9.6. Magnesium 1.5. Total bilirubin 0.89, AST 97, ALT 47, alkaline phosphatase 273, albumin 2.81. ASSESSMENT AND PLAN: 1. Bilateral lower lobe pneumonia, continue with the same treatment per Infectious Disease department. 2. Bacteremia with methicillin resistant Staphylococcus aureus, continue with daptomycin. 3. Acute hypoxemic and hypercarbic respiratory failure. This patient has been extubated 4 days ago. He is awake and alert. He is oriented. He is following commands. He is tolerating the nasal cannula. 4. Encephalopathy, resolved. 5. Possible osteomyelitis involving his feet. Infectious Disease on board. 6. Admitted due to diabetic ketoacidosis, resolved. 7. Alcohol abuse with possible alcohol withdrawal during admission, seems to be better, but he is still having some tremors which are chronic. 8. Abnormal CT scan that showed a prostate mass versus abscess. He has been already evaluated by Urology department. He will follow up with them as an outpatient. 9. Nutritional status. He is tolerating p.o. 10. Hypertension. I just readjusted again his medication. I will add metoprolol. 11. Acute kidney injury, resolved. cc: Flip Couch MD
[2019-09-09] MEDS: LANTUS INSULIN SUBQ SCH (09:55)
[2019-09-09] MEDS: APRESOLINE IV PRN (12:15)
[2019-09-09] MEDS: CUBICIN 600 MG in NS 100 ML IV SCH (14:52)
[2019-09-10] MEDS: HUMALOG SUBQ SCH ×6 (00:18→20:46)
[2019-09-10] MEDS: DUONEB (A & A) INH SCH ×7 (03:21→23:18)
[2019-09-10] MEDS: HALDOL IV PRN ×3 (03:47→23:39)
[2019-09-10 06:42] LABS: HEMATOCRIT 31.2 % (42.0-52.0); MCH 30.5 PG (27-31); MCHC 32.1 g/dL (33-37); MCV 95.1 FL (81-99); MPV 9.9 FL (7.4-10.4); RBC 3.28 XMIL (4.7-6.1); RDW 13.9 % (11.5-14.5); WBC 7.36 X1000 (4.8-10.8)
[2019-09-10 07:00] LABS: AGAP 14; ALB/GLOB RATIO 0.5; ALBUMIN 2.6 g/dL (3.5-5.0); ALKALINE PHOSPHATASE 258 U/L (32-122); BUN 12 mg/dL (8-22); CALCIUM 9.3 mg/dL (8.8-10.2); CHLORIDE 98 mmol/L (98-107); COSMO 270; CREATININE 0.9 mg/dL (0.7-1.2); ESTIMATED GFR > 60; GLUCOSE 142 mg/dL (70-104); GOT 72 U/L (10-34); GPT 39 U/L (10-44); POTASSIUM 3.2 mmol/L (3.5-5.1); SODIUM 134 mmol/L (136-145); TCO2 22 mmol/L (25-35); TOTAL BILIRUBIN 0.68 mg/dL (0.20-1.00); TOTAL PROTEIN 7.4 g/dL (6.3-8.3)
[2019-09-10] MEDS ORDERED: KLOR-CON PO ONE (08:14)
[2019-09-10] MEDS: LANTUS INSULIN SUBQ SCH (08:39)
[2019-09-10] MEDS: APRESOLINE PO SCH ×3 (08:51→20:43)
[2019-09-10] MEDS: NORVASC PO SCH ×2 (08:51→20:43)
[2019-09-10] MEDS: CATAPRES PO SCH ×2 (08:51→20:43)
[2019-09-10] MEDS: TAZIDIME 2 GM/NS 2 GM/100 ML IVPB IV SCH ×3 (08:51→23:31)
[2019-09-10] MEDS: PAXIL PO SCH (08:51)
[2019-09-10] MEDS: FLOMAX PO SCH ×2 (08:51→20:43)
[2019-09-10] MEDS: LOPRESSOR PO SCH ×2 (08:52→21:20)
--- NOTE | 2019-09-10 09:31 | PROGRESS NOTE ---
DATE: 09/10/2019 SUBJECTIVE: The patient has been extubated 5 days ago. He is tolerating the nasal cannula, and he is tolerating p.o. He seems to be less tachycardic, and the blood pressure is better controlled. I will continue with the same management. I will decrease also the dose of Haldol from every 6 hours to every 12 hours. OBJECTIVE: Vital Signs: Temperature 97.4 degrees, pulse 96, respiratory rate 22, blood pressure 165/87, oxygen saturation 96 on 3 L of nasal cannula. HEENT: Head normocephalic. No trauma. PERRLA. Neck: Supple. No JVD. Central trachea. Chest: Coarse breath sounds, mostly at the bases, with some rhonchi at the bases as well, mostly on the right base. Abdomen: Soft. Slightly distended. Positive bowel sounds. Extremities: Trace edema. No clubbing, no cyanosis. He has an amputation of some of his toes bilaterally. No open wound detected. Neurological: The patient is awake, alert. He is following commands. He is answering all my questions. He does have generalized tremors and generalized weakness. LABORATORY DATA: WBC 7.3, hemoglobin 10, hematocrit 31.2, platelets 366,000. Sodium 134, potassium 3.2, chloride 98, bicarbonate 22, BUN 12, creatinine 0.9, glucose 142, calcium 9.3. AST 72, ALT 39, alkaline phosphatase 258, albumin 2.6. ASSESSMENT AND PLAN: 1. Bilateral lower lobe pneumonia. Continue with the same treatment per Infectious Disease Department. 2. Sepsis due to pneumonia, better. Continue with the same treatment. 3. Bacteremia with methicillin-resistant staphylococcus aureus. Continue with daptomycin. 4. Acute hypoxemic and hypercarbic respiratory failure. This patient has been extubated 5 days ago. He is awake and alert. He is oriented. He is following commands. He is tolerating the nasal cannula. 5. Encephalopathy, resolved. 6. Possible osteomyelitis involving his feet. Infectious Disease Department on board. 7. Admitted due to diabetic ketoacidosis, resolved. 8. Alcohol abuse with possible alcohol withdrawal during admission. Seems to be better. He is still having some tremors, which are chronic. I put this patient on paroxetine to see if that helps. 9. Diabetes. Seems to be stable. Hemoglobin A1c was around 10.1. 10. Abnormal CT scan that showed a prostate mass versus abscess. He has been already evaluated by Urology Department. He will follow up with them as an outpatient. 11. Nutritional status. He is tolerating by mouth. 12. Hypertension. It is better controlled. Continue with the same management. 13. Acute kidney injury, resolved. The patient seems to be doing better. His kidney function is normal now, and he is making good urine. I will remove the Kelly catheter today. I will replace the potassium as well. I will transfer this patient to the medical floor, and I have requested an evaluation by Occupational Therapy and Physical Therapy. I have decreased also the frequency of the Haldol, and put him on paroxetine yesterday, and that seems to be helping a little bit. This patient has been hospitalized for about 20 days, and he seems to be really weak, but we will ask the transition social worker to evaluate this patient as well to see if this patient can go to a rehab center. cc: Flip Couch MD
[2019-09-10] MEDS: CUBICIN 600 MG in NS 100 ML IV SCH (14:53)
[2019-09-11] MEDS: HUMALOG SUBQ SCH ×6 (01:13→21:09)
[2019-09-11] MEDS: DUONEB (A & A) INH SCH ×5 (03:35→23:39)
[2019-09-11 05:27] LABS: BASO# 0.08 X1000 (0.0-0.2); BASO% 0.8 % (0.0-0.8); EOS# 0.55 X1000 (0.0-0.7); EOS% 5.3 % (0.0-10.0); HEMATOCRIT 31.7 % (42.0-52.0); IMM GRAN# 0.05 X1000 (0.0-0.04); IMM GRAN% 0.5 % (0.0-0.5); LYMPH# 2.33 X1000 (1.2-3.4); LYMPH% 22.4 % (20.5-51.1); MCH 29.5 PG (27-31); MCHC 31.5 g/dL (33-37); MCV 93.5 FL (81-99); MONO# 0.88 X1000 (0.11-0.59); MONO% 8.5 % (1.7-9.3); MPV 9.6 FL (7.4-10.4); NEUT# 6.52 X1000 (1.4-6.5); NEUT% 62.5 % (42.2-75.2); PLT 384 X1000 (130-400); RBC 3.39 XMIL (4.7-6.1); RDW 13.9 % (11.5-14.5); WBC 10.41 X1000 (4.8-10.8)
[2019-09-11 05:43] LABS: AGAP 19; ALB/GLOB RATIO 0.7; ALKALINE PHOSPHATASE 253 U/L (32-122); BUN 12 mg/dL (8-22); CALCIUM 9.8 mg/dL (8.8-10.2); CHLORIDE 99 mmol/L (98-107); COSMO 279; CREATININE 0.9 mg/dL (0.7-1.2); ESTIMATED GFR > 60; GLUCOSE 128 mg/dL (70-104); GOT 80 U/L (10-34); GPT 39 U/L (10-44); POTASSIUM 3.4 mmol/L (3.5-5.1); SODIUM 139 mmol/L (136-145); TCO2 21 mmol/L (25-35); TOTAL BILIRUBIN 0.66 mg/dL (0.20-1.00); TOTAL PROTEIN 7.5 g/dL (6.3-8.3)
[2019-09-11] MEDS: TYLENOL PO PRN (05:48)
--- NOTE | 2019-09-11 07:04 | INFECTIOUS DISEASE PROGRESS NO ---
DATE: 09/11/2019 PRESENT ILLNESS: The patient is being treated for a Pseudomonas pneumonia and possible osteomyelitis of both feet. MEDICATIONS: This is the 6th day of treatment with ceftazidime and daptomycin, both for the osteomyelitis of the feet. The ceftazidime also is treating the patient's Pseudomonas pneumonia. PHYSICAL EXAMINATION: Vital Signs: Temperature is 98.3 degrees, pulse 99, respirations 18, blood pressure 172/95. General: This is an ill-appearing middle-aged male. He is in no acute distress. HEENT: He can hear my spoken words and see near objects. I did not see any white patches in his mouth. Neck: No stiffness. Lungs: Clear to auscultation. Cardiovascular: Regular heart rate. Abdomen: Soft and nontender. Extremities: Both feet are not erythematous or draining. Neurologic: The patient is awake. He can move his extremities. There is no tremor. LAB AND X-RAY: Chest x-ray shows cardiomegaly, vascular congestion and possible right basilar atelectasis. Alkaline phosphatase 253. Creatinine is 0.9, GFR is greater than 60. CBC shows a white count of 10,410, hemoglobin 10, platelet count 384,000. CK is 32. ASSESSMENT AND PLAN: The patient is being treated with ceftazidime for his Pseudomonas pneumonia and he is being treated with the combination of ceftazidime and daptomycin for possible foot osteomyelitis. I plan to continue with these antibiotics. I have ordered an MRI of both of the patient's feet to look for the possibility of osteomyelitis. In the computer it said that when I want to find out if the patient has osteomyelitis of the feet, that I should order an MRI without contrast, which I did on both legs. COMORBIDITIES: The patient is a diabetic and also an alcoholic. cc: Jagjit Camargo MD [facility]
--- NOTE | 2019-09-11 07:31 | Diag Imaging Result Doc PS360 ---
EXAM: CHEST-1 VIEW INDICATION: pneumonia TECHNIQUE: One view COMPARISON: 09/09/2019 FINDINGS: The right PICC line tip projects over the SVC in the expected position. There is stable elevation of the right hemidiaphragm. There is increasing opacity throughout the right lung suggesting worsening consolidation. No new consolidation is identified on the left. Cardiac silhouette is stable. IMPRESSION: Interval worsening on the right as described. Electronically signed by Yehuda Loja 09/11/2019 7:29 AM
[2019-09-11] MEDS ORDERED: MAGNESIUM SULFATE 2 GM/S.W.I. 2 GM/50 ML IVPB IV ONE (07:48)
[2019-09-11] MEDS: LANTUS INSULIN SUBQ SCH (09:18)
[2019-09-11] MEDS: FLOMAX PO SCH ×2 (09:19→21:09)
[2019-09-11] MEDS: LOPRESSOR PO SCH ×2 (09:19→21:09)
[2019-09-11] MEDS: APRESOLINE PO SCH ×3 (09:19→21:09)
[2019-09-11] MEDS: PAXIL PO SCH (09:20)
[2019-09-11] MEDS: CATAPRES PO SCH ×2 (09:20→21:09)
[2019-09-11] MEDS: NORVASC PO SCH ×2 (09:20→21:09)
[2019-09-11] MEDS: KLOR-CON PO SCH ×2 (09:27→21:09)
[2019-09-11] MEDS: BLISTEX MEDICATED BERRY LIP BALM TOP PRN (09:27)
[2019-09-11] MEDS: HALDOL IV PRN (09:28)
--- NOTE | 2019-09-11 12:07 | PROGRESS NOTE ---
DATE: 09/11/2019 SUBJECTIVE: The patient has been extubated 6 days ago. He is tolerating the nasal cannula and he is tolerating p.o. as well. His blood sugar seems to be better. For now, we will continue with the same management. I have decreased the dose of the Haldol from every 6 hours to every 12 hours, and my plan is to continue to decrease the dose. Infectious Disease Department has requested an MRI of his feet. OBJECTIVE: Vital Signs: Temperature 97.7 degrees, pulse 97, respiratory rate 16, blood pressure 174/95, oxygen saturation 95% on 2 L of nasal cannula. HEENT: Head normocephalic, no trauma. PERRLA. Neck: Supple. No JVD. No masses. Central trachea. Chest: Coarse breath sounds mostly at the bases with some rhonchi at the right base. Abdomen: Soft. Slightly distended. Positive bowel sounds. Extremities: Trace edema. No clubbing, no cyanosis. He has an amputation of some of his toes bilaterally, but no open wound detected. Neurological examination: The patient is awake, alert. He is following commands. He is answering my questions. He does have generalized weakness and tremors. LABORATORY: WBC 10.4, hemoglobin 10, hematocrit 31.7, platelets 384. Sodium 139, potassium 3.4, chloride 99, bicarbonate 21. BUN 12, creatinine 0.9, glucose 128, calcium 9.8, magnesium 1.3. AST 80, ALT 39, alkaline phosphatase 253, and albumin 3. ASSESSMENT AND PLAN: 1. Bilateral lower lobe pneumonia. Continue with same treatment per Infectious Disease Department. 2. Sepsis due to pneumonia. This is better. Continue with same management. Symptoms are better, even though there is an interval worsening of the right consolidation. 3. Bacteremia due to methicillin-resistant Staphylococcus aureus. Continue with daptomycin. 4. Acute hypoxemic and hypercarbic respiratory failure. The patient has been extubated 6 days ago. He is awake, alert. He is oriented, he is following commands. He is tolerating nasal cannula. 5. Encephalopathy, resolved. 6. Possible osteomyelitis involving his feet. Infectious Disease Department has requested an MRI. 7. Admitted due to diabetic ketoacidosis, resolved. 8. Alcohol abuse with possible alcohol withdrawal, mostly during admission. He seems to be better. He is still having tremors, which are chronic. I have placed this patient on paroxetine to see if that helps. 9. Diabetes. He seems to be stable. Hemoglobin A1c was around 10.1. 10. Abnormal CT scan that showed a prostate mass versus abscess. He has been already evaluated by Urology Department. I tried to remove the Kelly catheter yesterday, but he was having bladder retention, so they put it back in. I will do some bladder training today, and hopefully we can remove the Kelly soon. 11. Nutritional status: He is tolerating oral. 12. Hypertension, better controlled, but still a little bit high. 13. Acute kidney injury, resolved. 14. Hypokalemia. I will replace it. 15. Hypomagnesemia. I will replace the magnesium as well. cc: Flip Couch MD
--- NOTE | 2019-09-11 12:45 | Diag Imaging Result Doc PS360 ---
MRI LOWER EXT W/WO CON-LEFT - 09/11/2019 INDICATION: foot Osteomyelitis TECHNIQUE: MRI left foot without and with intravenous contrast COMPARISON: 09/01/2019 FINDINGS: There is some mild signal hyperintensity on the fluid sensitive sequences at the distal fourth and fifth metatarsals as well as the base of the great toe. These areas also demonstrate mild contrast enhancement. There is diffuse nonspecific dorsal foot hyperintensity consistent with pedal edema. There is significant edema surrounding the distal flexor digitorum, mainly the fourth and fifth flexors. The significance here is unclear. IMPRESSION: 1. Abnormalities of the distal fourth and fifth metatarsals as well as the base of the fifth toe concerning for osteomyelitis. 2. Nonspecific pedal edema. 3. Nonspecific edema around the fourth and fifth digital flexors. Electronically signed by Jacinto Avila 09/11/2019 12:43 PM
--- NOTE | 2019-09-11 13:01 | Diag Imaging Result Doc PS360 ---
MRI LOWER EXT W/WO CON-RIGHT - 09/11/2019 INDICATION: Foot Osteomyelitis TECHNIQUE: MRI right foot without and with intravenous contrast COMPARISON: X-rays from 09/01/2019 FINDINGS: Stable findings of previous amputation at the base of the great toe, and amputation of the second toe. Stable severe hammertoe deformities of the third through fifth toes. No fractures or bony erosions. Grossly normal bone marrow signal. No fluid collections. There is some mild dorsal pedal edema. IMPRESSION: Nonspecific findings. No findings suggestive of osteomyelitis. Electronically signed by Jacinto Avila 09/11/2019 12:58 PM
[2019-09-11] MEDS: TAZIDIME 2 GM/NS 2 GM/100 ML IVPB IV SCH ×2 (14:05→16:31)
[2019-09-11] MEDS: CUBICIN 600 MG in NS 100 ML IV SCH (17:27)
[2019-09-12] MEDS: TAZIDIME 2 GM/NS 2 GM/100 ML IVPB IV SCH ×3 (00:45→15:39)
[2019-09-12] MEDS: HUMALOG SUBQ SCH ×6 (01:22→22:00)
[2019-09-12] MEDS: DUONEB (A & A) INH SCH ×4 (03:37→16:36)
[2019-09-12 05:26] LABS: HEMATOCRIT 33.1 % (42.0-52.0); HEMOGLOBIN 10.6 g/dL (14.0-18.0); MCH 30.2 PG (27-31); MCV 94.3 FL (81-99); MPV 10.6 FL (7.4-10.4); RBC 3.51 XMIL (4.7-6.1); RDW 14.3 % (11.5-14.5); WBC 12.18 X1000 (4.8-10.8)
[2019-09-12 05:59] LABS: MAGNESIUM 1.4 mg/dL (1.5-2.7); PHOSPHORUS 3.4 mg/dL (2.7-4.5)
[2019-09-12 06:06] LABS: AGAP 16; ALB/GLOB RATIO 0.6; ALBUMIN 2.9 g/dL (3.5-5.0); ALKALINE PHOSPHATASE 243 U/L (32-122); BUN 10 mg/dL (8-22); CALCIUM 9.6 mg/dL (8.8-10.2); CHLORIDE 99 mmol/L (98-107); COSMO 272; CREATININE 0.9 mg/dL (0.7-1.2); ESTIMATED GFR > 60; GLUCOSE 116 mg/dL (70-104); GOT 64 U/L (10-34); GPT 34 U/L (10-44); POTASSIUM 3.6 mmol/L (3.5-5.1); SODIUM 136 mmol/L (136-145); TCO2 21 mmol/L (25-35); TOTAL PROTEIN 7.6 g/dL (6.3-8.3)
--- NOTE | 2019-09-12 07:49 | PULMONOLOGY PROGRESS NOTE ---
DATE: 09/11/2019 SUBJECTIVE: The patient is awake and alert. He appears confused. OBJECTIVE: Vital Signs: The patient has been afebrile for the last 24 hours. Blood pressure 142/88, heart rate 74, respiratory rate 18, oxygen saturation 95% on 2 L per nasal cannula. HEENT: Pupils are equal and reactive. Oropharynx appears clear. Neck is supple. Chest reveals decreased breath sounds, right base. Cardiac Examination: S1-S2. Abdomen is soft. Extremities reveal prior amputations bilaterally. Laboratories: MRI of the left foot is concerning for osteomyelitis of the distal 4th and 5th metatarsals. MRI of the right foot reveals no evidence of osteomyelitis. Chest x-ray reveals elevation of the right hemidiaphragm with slight increase in atelectasis/consolidation. White blood count 10.41. Chemistry: Sodium is 139, potassium 3.4, chloride 99, bicarb 21, BUN 12, creatinine 0.9. IMPRESSION: 1. Acute hypoxemic respiratory failure. 2. Hypercapnic respiratory failure. 3. Pseudomonal pneumonia. 4. Methicillin-resistant Staphylococcus aureus bacteremia, possibly related to osteomyelitis. 5. Diabetes mellitus. PLAN: 1. Continue bronchial hygiene. 2. Continue antibiotics per infectious disease. 3. Continue oxygen for hypoxemic respiratory failure. cc: Michael Goins MD
[2019-09-12] MEDS: NORVASC PO SCH ×2 (09:01→20:28)
[2019-09-12] MEDS: APRESOLINE PO SCH ×3 (09:01→20:28)
[2019-09-12] MEDS: LOPRESSOR PO SCH ×2 (09:01→20:43)
[2019-09-12] MEDS: CATAPRES PO SCH ×2 (09:01→20:28)
[2019-09-12] MEDS: PAXIL PO SCH (09:01)
[2019-09-12] MEDS: FLOMAX PO SCH ×2 (09:01→20:28)
[2019-09-12] MEDS: LANTUS INSULIN SUBQ SCH (09:02)
--- NOTE | 2019-09-12 13:20 | INFECTIOUS DISEASE PROGRESS NO ---
DATE: 09/12/2019 PRESENT ILLNESS: The patient has a Pseudomonas pneumonia and left foot osteomyelitis. The patient also has been having diarrhea. I want to rule out the possibility that it is due to Clostridium difficile. MEDICATIONS: This is day 7 of treatment with ceftazidime and daptomycin for the patient's left foot osteomyelitis, and ceftazidime is also treating the patient's Pseudomonas pneumonia. PHYSICAL EXAMINATION: Vital Signs: Temperature is 98.2 degrees, pulse 86, respirations 21, blood pressure 169/97. General: This is an ill-appearing middle-aged male. He is in no acute distress. Head/eyes/ears/nose/throat: He can hear my spoken words and see near objects. I did not see any coating of the tongue or ulcers. Neck: No pain with movement. Lungs: Clear to auscultation. Cardiovascular: Heart rate is regular. Abdomen: Soft and nontender. Extremities: Both feet are not erythematous or purulent. Neurologic: The patient is awake. He can move his extremities. He does not have a tremor. He is oriented. LAB AND X-RAY: [place] [address], hemoglobin 10.6, platelet count is 269,000. Creatinine is 0.9, GFR is greater than 60. AST is 64, alkaline phosphatase is 243. MRI of the right foot showed no osteomyelitis. MRI of the left foot showed osteomyelitis in toes 4 and 5. ASSESSMENT AND PLAN: The patient is being treated for his Pseudomonas pneumonia and for his foot osteomyelitis. I plan on continuing both antibiotics for the time being. The patient is having diarrhea so I have gone ahead and ordered a stool for Clostridium difficile toxin and antigen. I have put in a consult for Surgery, namely Dr. Luz who is on-call now, for consideration of amputating the infected toes. COMORBIDITIES: The patient is a diabetic and an alcoholic. cc: Jagjit Camargo MD
[2019-09-12] MEDS: CUBICIN 600 MG in NS 100 ML IV SCH (14:56)
[2019-09-12] MEDS ORDERED: MAGNESIUM SULFATE 4 GM/S.W.I. 4 GM/100 ML IVPB IV ONE (16:00)
--- NOTE | 2019-09-12 18:57 | PROGRESS NOTE ---
DATE: 09/12/2019 SUBJECTIVE: Patient reports feeling better. Denies any fever, chills, or any other complaints. OBJECTIVE: Vital Signs: Temperature 98.3 degrees, heart rate 82, respiratory rate 22, blood pressure 150/87. O2 saturation 95% 2 L nasal cannula. General: This is a chronically ill appearing, 53-year-old male, lying in bed, in no acute distress. Cardiovascular: S1, S2 heard. No murmurs, gallops, or rubs. Regular rate and rhythm. Respiratory: Coarse breath sounds noted in both pulmonary bases. The patient is not using any accessory muscles or having work of breathing. Abdomen: Soft. Nontender to palpation. Bowel sounds present. No organomegaly. Extremities: Mild edema in both lower extremities. No clubbing or cyanosis noted. Neurological: Patient is awake, alert, follow commands. LABORATORY DATA: White cell count 12.19, hemoglobin 10.6, hematocrit 33.1, platelets 269,000 and BMP is okay. ASSESSMENT: 1. Bilateral lower lobe pneumonia secondary to Pseudomonas. Infectious Disease is following this patient. Currently, patient is receiving ceftazidime, day #7 of treatment, and daptomycin. Will continue with the same management. 2. Possible osteomyelitis involving the left foot. MRI of the left foot shows left 4th and 5th toe osteomyelitis. Dr. Luz from General Surgery has been consulted. We will follow his recommendations. 3. Methicillin-resistant Staphylococcus aureus bacteremia. We will continue with daptomycin. 4. Hypoxemic and hypercarbic respiratory failure. The patient has been extubated 1 week ago. Now requiring only 2 L of oxygen by nasal cannula to maintain saturation above 90. We will continue with same management. 5. Diabetes mellitus type 2. Not well controlled. We will continue with sliding scale insulin and Accu-Chek before meals and also at bedtime. 6. Nutritional status. Patient is eating by mouth. We will continue to monitor. 7. Hypertension. Blood pressure is today a little bit better with blood pressure within 150s and 180s. Currently this patient is receiving metoprolol and amlodipine with clonidine and hydralazine. I think at this point we will increase the dose of metoprolol to 50 and see how this patient does. 8. Acute kidney injury, resolved. 9. Disposition. We will continue to monitor this patient closely. Will continue working with Physical Therapy. cc: Cristo Henry MD MTDD
--- NOTE | 2019-09-12 21:45 | GENERAL SURGERY CONSULTATION ---
DATE: 09/12/2019 REASON FOR CONSULTATION: Possible osteomyelitis of the toes. HPI: This 53-year-old gentleman multiple medical issues. He is an alcoholic. He has had numerous episodes of alcohol withdrawal. He is diabetic poorly controlled, comes in DKA. He has been admitted for several days with pneumonia, DKA and alcohol withdrawals. He has had some diarrhea as well and been worked up for this. He had an MRI unclear reason but with a suggestion of possible osteomyelitis of the distal aspect of his left 4th and 5th metatarsals. He denies any pain or drainage from the feet. MEDICAL HISTORY: As noted in the HPI with the addition of chronic kidney disease. SOCIAL HISTORY: He is for the most part homeless. He is alcoholic. History of smoking. FAMILY HISTORY: Reviewed, noncontributory . REVIEW OF SYSTEMS: Ten point review of systems negative other than hpi. Currently he is afebrile, pulse 83, blood pressure 150/87, oxygen saturation 95%.General: He is a chronically ill-appearing, unkempt but no acute distress. HEENT: Is no scleral icterus. No cervical mass. Cardiovascular: Normal rate. Pulmonary: No increased work of breathing. Abdomen: Soft, nontender. Integument: Warm, dry. Peripheral vascular: Feet are warm. 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 I do not see any wounds. No cellulitis. No swelling any his digits noted no ulcerations. Does have lower extremity edema. Psychiatric: Somewhat of a flat affect. Neurologic: He is tremulous. LAB: White count is 12, has been normal up until today, hematocrit 33, creatinine 0.9, bilirubin is mildly elevated. AST and ALT and alkaline phosphatase also have been mildly elevated. ASSESSMENT AND PLAN: This is a 53-year-old gentleman multiple medical problems. I reviewed his MRI, although there is some suggestion of the distal metatarsals. I do not see any wounds. He has no necrosis and the limb seems well perfused. I do not think it is beneficial to create a wound to treat the radiographic finding. Would recommend treating his other, medical issues, I can follow his feet. He is obviously high risk for ulcerations and neuropathic changes to his foot given his history of noncompliance but we will follow along at this juncture. cc: MD NIKKI Foster
[2019-09-13] MEDS: TAZIDIME 2 GM/NS 2 GM/100 ML IVPB IV SCH ×3 (01:09→16:05)
[2019-09-13] MEDS: HUMALOG SUBQ SCH ×6 (01:33→21:39)
[2019-09-13 05:31] LABS: HEMOGLOBIN 10.6 g/dL (14.0-18.0); MCH 30.5 PG (27-31); MCHC 32.1 g/dL (33-37); MCV 94.8 FL (81-99); MPV 10.9 FL (7.4-10.4); RBC 3.48 XMIL (4.7-6.1); RDW 14.7 % (11.5-14.5); WBC 16.08 X1000 (4.8-10.8)
[2019-09-13 06:00] LABS: AGAP 20; ALB/GLOB RATIO 0.7; ALKALINE PHOSPHATASE 254 U/L (32-122); BUN 10 mg/dL (8-22); CALCIUM 9.1 mg/dL (8.8-10.2); CHLORIDE 96 mmol/L (98-107); COSMO 272; CREATININE 0.8 mg/dL (0.7-1.2); ESTIMATED GFR > 60; GLUCOSE 82 mg/dL (70-104); GOT 45 U/L (10-34); GPT 26 U/L (10-44); POTASSIUM 3.3 mmol/L (3.5-5.1); SODIUM 137 mmol/L (136-145); TCO2 21 mmol/L (25-35); TOTAL BILIRUBIN 0.73 mg/dL (0.20-1.00); TOTAL PROTEIN 7.5 g/dL (6.3-8.3)
[2019-09-13 06:13] LABS: PHOSPHORUS 3.2 mg/dL (2.7-4.5)
[2019-09-13] MEDS: DUONEB (A & A) INH PRN ×3 (07:52→20:08)
[2019-09-13 08:41] LABS: ALLEN TEST YES; BE 0.4 mmoll (-3.0-3.0); BLOOD TYPE ARTERIAL; HCO3-(ACT) 25.2 mmoll (20.0-26.0); O2(CT) 14.8 mL/dL (15.0-23.0); O2HB 93.9 % (95.0-99.0); PCO2(98.6) 37 mmHg (35-45); PO2(98.6) 72 mmHg (60-100); SAMPLE BLOOD; THB 11.2 g/dL (11.5-17.4); pH(98.6) 7.43 (7.35-7.45)
[2019-09-13 08:42] LABS: MODALITY VENTIMASK
--- NOTE | 2019-09-13 09:02 | Diag Imaging Result Doc PS360 ---
EXAM: CHEST-2 VIEWS HISTORY: O2 Sat drop to 78 TECHNIQUE: Three views COMPARISON: 09/11/2019 FINDINGS: No change in the right-sided PICC line. There is a moderate-sized right pleural effusion and a small left effusion. The heart is enlarged and there is vascular distention. There are infiltrates in the mid and lower right lung and atelectasis. IMPRESSION: No interval improvement Electronically signed by Trent Moura 09/13/2019 8:59 AM
[2019-09-13] MEDS: APRESOLINE PO SCH ×3 (09:28→21:29)
[2019-09-13] MEDS: LOPRESSOR PO SCH ×2 (09:28→21:29)
[2019-09-13] MEDS: CATAPRES PO SCH ×2 (09:28→21:29)
[2019-09-13] MEDS: NORVASC PO SCH ×2 (09:28→21:29)
[2019-09-13] MEDS: FLOMAX PO SCH ×2 (09:28→21:29)
[2019-09-13] MEDS: PAXIL PO SCH (09:28)
[2019-09-13] MEDS: LANTUS INSULIN SUBQ SCH (13:08)
[2019-09-13] MEDS: CUBICIN 600 MG in NS 100 ML IV SCH (16:04)
[2019-09-13] MEDS: ZYVOX 600 MG/D5W 600 MG/300 ML IVPB IV SCH (16:05)
[2019-09-13] MEDS: HALDOL IV PRN (16:50)
[2019-09-13] MEDS: TYLENOL PO PRN (18:58)
--- NOTE | 2019-09-13 20:47 | PROGRESS NOTE ---
DATE: 09/13/2019 SUBJECTIVE: According to nursing staff, patient started feeling very short of breath this morning. He was requiring 2 to 3 L of oxygen by nasal cannula, but then they were placed on Ventimask and also a nonrebreather mask, and his O2 saturation is barely above 90. Patient himself reveals shortness of breath this morning that was progressively getting worse. OBJECTIVE: Vital Signs: Temperature 97.9 degrees, heart rate 98, respiratory rate 19, blood pressure 158/80, O2 saturation 93% on high-flow nasal cannula. General: This is a chronically ill-appearing, 53-year-old male, lying in bed, in no acute distress. Cardiovascular: S1, S2 heard. No murmurs, gallops, or rubs. Regular rate and rhythm. Respiratory: Coarse breath sounds noted all over both pulmonary waters, mostly in both bases. Patient not using any accessory muscles or having work of breathing. Abdomen: Soft, nontender to palpation. Bowel sounds present. No organomegaly. Extremities: Mild edema in both lower extremities. No clubbing or cyanosis noted. Neurological: Patient is awake, alert, following commands. LABORATORY DATA: White cell count 16.08, hemoglobin 10.6, hematocrit 33.0, platelets 299,000, with ABGs 7.43, with pCO2 37, pO2 72, on Ventimask 50% with BMP that is okay except potassium 3.3 with normal renal function. ASSESSMENT AND PLAN: 1. Bilateral lower lobe pneumonia secondary to Pseudomonas. Patient continues to receive ceftazidime and daptomycin, day number 8 for both medications. We will continue with same management. 2. Possible osteomyelitis involving the left foot. The patient has been evaluated by General Surgery and they do not think this patient requires any surgical approach for any possible osteomyelitis, so they recommend medical management only. 3. Methicillin resistant Staphylococcus aureus bacteremia. We will continue with daptomycin. 4. Acute hypoxemic and hypercarbic respiratory failure. The patient was doing fine until yesterday where he was requiring oxygen by nasal cannula 2 to 3 L, and today he started requiring oxygen by high-flow nasal cannula. We have checked arterial blood gases and also an x-ray 2 views, and basically nothing that can explain this new onset acute respiratory failure. In any case, we will continue to monitor this patient closely. 5. Diabetes mellitus type 2, not well controlled. We will continue with insulin sliding scale. 6. Nutritional status. Patient continues to be fed by mouth. 7. Hypertension. Blood pressure is okay. We will continue with the same management. 8. Acute kidney injury, resolved. 9. Disposition. We will send this patient to [facility] for better monitoring. We will continue to check on this patient closely. cc: Cristo Henry MD MTDD
[2019-09-14] MEDS: HUMALOG SUBQ SCH ×6 (00:25→22:29)
[2019-09-14] MEDS: TAZIDIME 2 GM/NS 2 GM/100 ML IVPB IV SCH ×3 (00:25→16:02)
[2019-09-14] MEDS: ZYVOX 600 MG/D5W 600 MG/300 ML IVPB IV SCH ×2 (03:16→16:01)
[2019-09-14 06:13] LABS: HEMATOCRIT 31.8 % (42.0-52.0); HEMOGLOBIN 10.1 g/dL (14.0-18.0); MCH 30.1 PG (27-31); MCHC 31.8 g/dL (33-37); MCV 94.6 FL (81-99); MPV 9.3 FL (7.4-10.4); RBC 3.36 XMIL (4.7-6.1); RDW 14.7 % (11.5-14.5); WBC 17.53 X1000 (4.8-10.8)
[2019-09-14 06:32] LABS: MAGNESIUM 1.6 mg/dL (1.5-2.7)
[2019-09-14 06:34] LABS: AGAP 21; ALB/GLOB RATIO 0.5; ALBUMIN 2.6 g/dL (3.5-5.0); ALKALINE PHOSPHATASE 235 U/L (32-122); BUN 18 mg/dL (8-22); CALCIUM 8.8 mg/dL (8.8-10.2); CHLORIDE 93 mmol/L (98-107); COSMO 276; ESTIMATED GFR > 60; GLUCOSE 196 mg/dL (70-104); GOT 26 U/L (10-34); GPT 19 U/L (10-44); POTASSIUM 3.1 mmol/L (3.5-5.1); SODIUM 134 mmol/L (136-145); TCO2 20 mmol/L (25-35); TOTAL BILIRUBIN 0.75 mg/dL (0.20-1.00); TOTAL PROTEIN 7.5 g/dL (6.3-8.3)
--- NOTE | 2019-09-14 08:00 | INFECTIOUS DISEASE PROGRESS NO ---
DATE: 09/13/2019 PRESENT ILLNESS: Mr. Gauthier is being treated for MRSA bacteremia, a left foot osteomyelitis, and a Pseudomonas pneumonia. He has had a decline in his respiratory status today and has been moved to the [facility] unit due to increasing oxygen demand. MEDICATIONS: He is receiving ceftazidime 2 g IV every 8 hours. Today is day 8 of ceftazidime. He is also on daptomycin 600 mg IV daily. PHYSICAL EXAMINATION: Vital Signs: Temperature is 99.7 degrees, pulse rate 91, respiratory rate 10, blood pressure 127/61, O2 saturation is 96% on a nonrebreather. General: This is a critically ill-appearing, middle-aged gentleman. He is lying in the bed, currently in no acute distress. HEENT: Atraumatic, normocephalic. Oral mucous membranes are pink and moist. Conjunctivae are pink. Neck: Supple. Trachea is midline. Cardiovascular: Heart rate and rhythm are regular. Normal sinus rhythm on the monitor. Respiratory: Lung sounds are clear and diminished bilaterally. Abdomen: Soft, round, and nontender. Bowel sounds are active. Neurologic: He is awake, alert, and appropriate. Able to move around in the bed independently. LABORATORY AND X-RAY: Today, his white count is 16.08, hemoglobin 10.6, platelet count 299,000. On a 50% Ventimask, his pH is 7.43, pCO2 is 37, PO2 is 72. Creatinine is 0.8. Estimated GFR is greater than 60. Total bilirubin is 0.73, AST 45, ALT 26, alkaline phosphatase 254. He had previously grown MRSA in his blood and Pseudomonas in his sputum. Chest x-ray today shows no interval improvement with infiltrates in the mid and lower right lung, and atelectasis. ASSESSMENT AND PLAN: Mr. Gauthier has completed treatment for his methicillin- resistant Staphylococcus aureus bacteremia. He is receiving daptomycin, which we will continue, for his left foot osteomyelitis. He also has a Pseudomonas pneumonia for which he is receiving ceftazidime, which we will also continue. He has had some increased respiratory distress today, as well as a leukocytosis, so we will add Zyvox 600 mg intravenously every 12 hours. Yesterday, there was concern about a possible Clostridium difficile. However, he apparently has not had any stools in the last couple of days so nothing has been collected to check for Clostridium difficile. For now, we will continue daptomycin, ceftazidime and Zyvox. These plans have been discussed with and recommended by Dr. Camargo. COMORBIDITIES: For Mr. Gauthier include an extended hospitalization with diabetes mellitus and alcoholism. Dictated by CARLOS Rocha for Jagjit Camargo MD cc: Jagjit Camargo MD [facility]
[2019-09-14 08:41] LABS: URINE SOURCE CATH
[2019-09-14 08:53] LABS: BILIRUBIN URINE NEGATIVE (NEGATIVE); BLOOD URINE MODERATE (NEGATIVE); COLOR YELLOW; GLUCOSE URINE TRACE mg/dL (NEGATIVE); KETONE URINE 20 mg/dL (NEGATIVE); LEUKOCYTES URINE NEGATIVE (NEGATIVE); NITRITE URINE NEGATIVE (NEGATIVE); PH URINE 5.5; PROTEIN URINE 100 mg/dL (NEGATIVE); SP GRAVITY URINE 1.022; TURBIDITY URINE HAZY (CLEAR); UROBILINOGEN URINE NORMAL (NORMAL)
[2019-09-14 08:55] LABS: UR EPITHELIAL CELLS <10 /HPF (<10); URINE BACTERIA NEGATIVE /HPF; URINE RBC <10 /HPF (<10); URINE WBC <10 /HPF (<10)
[2019-09-14] MEDS: FLOMAX PO SCH ×2 (09:12→22:35)
[2019-09-14] MEDS: APRESOLINE PO SCH ×3 (09:12→22:35)
[2019-09-14] MEDS: CATAPRES PO SCH ×2 (09:12→22:36)
[2019-09-14] MEDS: LOPRESSOR PO SCH ×2 (09:13→22:36)
[2019-09-14] MEDS: NORVASC PO SCH ×2 (09:13→22:35)
[2019-09-14] MEDS: LANTUS INSULIN SUBQ SCH (09:13)
[2019-09-14] MEDS ORDERED: POTASSIUM CHLORIDE 60 MEQ in NS 500 ML IV ONE (10:02)
--- NOTE | 2019-09-14 13:52 | PROGRESS NOTE ---
DATE: 09/14/2019 SUBJECTIVE: The patient reports still short of breath when he tries to move around. At rest he feels better. He continues to require oxygen by non-rebreather mask. No other issues noted. OBJECTIVE: Vital Signs: Temperature 98.6 degrees, heart rate 78 respiratory rate 17, blood pressure 148/82, O2 saturation 91% on nonrebreather mask. General: This is a chronically ill- appearing, 53-year-old male, lying in bed in no acute distress. Cardiovascular: S1, S2 heard. No murmurs, gallops, or rubs. Regular rate and rhythm. Respiratory: Coarse breath sounds noted all over both pulmonary waters, mostly in both bases. Patient not using any accessory muscles or having work of breathing. Abdomen: Soft, nontender to palpation. Bowel sounds present. No organomegaly. Extremities: Mild edema in both lower extremities. No clubbing or cyanosis noted. Neurological exam: Patient is awake, alert, following commands. LABORATORY DATA: White cell count 17.53, hemoglobin 10.1, hematocrit 31.8, platelets 489 with a potassium 3.1, sodium 134, glucose 196. ASSESSMENT AND PLAN: 1. Bilateral lower lobe pneumonia secondary to Pseudomonas. Patient continues to be on ceftazidime and daptomycin day #9 for both medications. Because of elevation of white cell count, the patient has been started on Zyvox as per Infectious Disease. We will continue to monitor. 2. Possible osteomyelitis involving the left foot. Patient will meet with General Surgery. Apparently, he does not need to have any amputation. We will continue with intravenous antibiotics. 3. Methicillin-resistant Staphylococcus aureus bacteremia. We will continue with daptomycin as of now as per Infectious Disease recommendations. 4. Acute hypoxemic and hypercapnic respiratory failure. The patient oxygen needs continues to be high requiring non-rebreather mask. We will continue to monitor this patient closely. 5. Diabetes mellitus type 2. Not well controlled. We will continue with insulin sliding scale. 6. Nutritional status: Patient is eating better. 7. Hypertension: Blood pressure is under control. We will continue with the same management. 8. Acute kidney injury, resolved. 9. Disposition: Because of his higher oxygen needs, we will continue to monitor this patient in the [facility] unit. cc: Cristo Henry MD
[2019-09-14] MEDS: CUBICIN 600 MG in NS 100 ML IV SCH (16:02)
[2019-09-14] MEDS ORDERED: LASIX IV ONE (20:09)
--- NOTE | 2019-09-14 21:18 | INFECTIOUS DISEASE PROGRESS NO ---
DATE: 09/14/2019 PRESENT ILLNESS: The patient is being treated for the following infections, methicillin - resistant Staphylococcus aureus bacteremia, left foot osteomyelitis, Pseudomonas pneumonia. The patient yesterday had a decline in his respiratory status, and I think this could be due to the patient developing another pneumonia besides the Pseudomonas pneumonia, and specifically I would think it would be a methicillin-resistant Staphylococcus aureus pneumonia because the patient was bacteremic at the time with that organism. MEDICATIONS: This is day 20 of treatment with daptomycin, day 9 with treatment with ceftazidime, and day 1 of treatment with Zyvox. PHYSICAL EXAMINATION: Vital Signs: Temperature is 98.7 degrees, pulse 74, respirations 17, blood pressure 109/67. General: This is an ill-appearing, middle-aged male. He is in no acute distress today. Head, eyes, ears, nose, throat: He can hear my spoken words and see near objects. He does not have any drainage from his nose or ears. Neck: He did not have any pain when he turned his neck. Lungs: Clear to auscultation. Cardiovascular: Heart rate is regular. Abdomen: Soft and nontender. Extremities: Both feet are not erythematous or draining. Neurologic: The patient is awake. I was having difficulty understanding what the patient was saying. There was no tremor. LAB AND X-RAY: There is no new radiographic study. The CBC shows a white count of 17,530, hemoglobin 10.1, platelet count 489,000. Creatinine is 1. GFR is greater than 60. Alkaline phosphatase was 235. Urinalysis was negative for white cells and bacteria. ASSESSMENT AND PLAN: The patient now is being treated for his left foot osteomyelitis and pneumonia, which is due to Pseudomonas, but there could be a component of methicillin-resistant Staphylococcus aureus as well. The patient has completed treatment for his methicillin-resistant Staphylococcus aureus bacteremia. COMORBIDITIES: The patient has had an extended hospitalization. He also has diabetes mellitus and he is an alcoholic. cc: Jagjit Camargo MD
[2019-09-15] MEDS: HUMALOG SUBQ SCH ×6 (00:28→21:11)
[2019-09-15] MEDS: TAZIDIME 2 GM/NS 2 GM/100 ML IVPB IV SCH ×4 (00:28→23:56)
[2019-09-15] MEDS: ZYVOX 600 MG/D5W 600 MG/300 ML IVPB IV SCH ×2 (03:54→15:25)
--- NOTE | 2019-09-15 03:59 | PULMONOLOGY PROGRESS NOTE ---
DATE: 09/14/2019 SUBJECTIVE: The patient is awake, alert, and conversant. He has a weak cough with audible rhonchi. OBJECTIVE: Vital Signs: The patient has been afebrile for the last 24 hours. BP 111/69, heart rate 76, respiratory rate 20, oxygen saturation 96% on non-rebreather. HEENT: Pupils are equal and reactive. Oropharynx is clear. Neck: Supple. Chest: Reveals decreased breath sounds with rhonchi in the right lung. Cardiac: S1, S2. Abdomen: Soft. Extremities: Unchanged. LABORATORIES: White blood count 17.5, hemoglobin 10.1, platelet count 489,000. Sodium 134, potassium 3.1, chloride 93, bicarbonate 20, BUN 18, creatinine 1.0. Chest x-ray yesterday revealed persistent infiltrates in the right lung. IMPRESSION: A 53-year-old with: 1. Acute hypoxemic respiratory failure. 2. Hypercapnic respiratory failure. 3. Pseudomonal pneumonia. 4. Methicillin-resistant Staphylococcus aureus bacteremia. 5. Diabetes mellitus. DISCUSSION: A 53-year-old with problems outlined above. Over the last 48 hours, he has had increasing oxygen requirements along with radiographic worsening. This either represents an antibiotic failure or represents recurrent aspiration. RECOMMENDATIONS: 1. Check immunoglobulin level. 2. Continue current antibiotics per Dr. Jagjit Camargo. 3. Continue bronchial hygiene. 4. Obtain modified barium swallow to ensure he is not having ongoing aspiration while eating. 5. Prognosis is guarded. cc: Michael Goins MD
[2019-09-15 06:01] LABS: HEMATOCRIT 32.3 % (42.0-52.0); HEMOGLOBIN 10.2 g/dL (14.0-18.0); MCH 29.6 PG (27-31); MCHC 31.6 g/dL (33-37); MCV 93.6 FL (81-99); MPV 9.7 FL (7.4-10.4); RBC 3.45 XMIL (4.7-6.1); RDW 14.6 % (11.5-14.5); WBC 14.67 X1000 (4.8-10.8)
[2019-09-15 06:35] LABS: MAGNESIUM 1.4 mg/dL (1.5-2.7)
[2019-09-15 06:41] LABS: AGAP 19; ALB/GLOB RATIO 0.6; ALBUMIN 2.6 g/dL (3.5-5.0); ALKALINE PHOSPHATASE 207 U/L (32-122); BUN 19 mg/dL (8-22); CALCIUM 8.5 mg/dL (8.8-10.2); CHLORIDE 96 mmol/L (98-107); COSMO 281; CREATININE 0.9 mg/dL (0.7-1.2); ESTIMATED GFR > 60; GLUCOSE 194 mg/dL (70-104); GOT 20 U/L (10-34); GPT 14 U/L (10-44); POTASSIUM 2.8 mmol/L (3.5-5.1); SODIUM 137 mmol/L (136-145); TCO2 22 mmol/L (25-35); TOTAL BILIRUBIN 0.64 mg/dL (0.20-1.00); TOTAL PROTEIN 7.2 g/dL (6.3-8.3)
--- NOTE | 2019-09-15 07:43 | Diag Imaging Result Doc PS360 ---
CHEST-PORTABLE - 09/15/2019 INDICATION: abnormal exam COMPARISON: 09/13/2019 FINDINGS: Stable right PICC line in good position. Lung volumes are much lower. There is worsening aeration of the right lung, with infiltrate in the upper lobe and opacification or effusion at the bases. The left lung remains grossly clear. Stable cardiomegaly and pulmonary vascular congestion. IMPRESSION: Lower lung volumes. Worsening infiltrate or atelectasis throughout the right lung. Electronically signed by Jacinto Avila 09/15/2019 7:41 AM
[2019-09-15] MEDS ORDERED: MAGNESIUM SULFATE 2 GM/S.W.I. 2 GM/50 ML IVPB IV ONE (08:06)
[2019-09-15] MEDS: POTASSIUM CHLORIDE 20% LIQUID PO SCH ×2 (08:37→11:34)
[2019-09-15] MEDS: FLOMAX PO SCH ×2 (08:38→21:11)
[2019-09-15] MEDS: LOPRESSOR PO SCH ×2 (08:38→21:11)
[2019-09-15] MEDS: NORVASC PO SCH ×2 (08:38→21:12)
[2019-09-15] MEDS: APRESOLINE PO SCH ×3 (08:38→21:10)
[2019-09-15] MEDS: CATAPRES PO SCH ×2 (08:38→21:11)
[2019-09-15] MEDS: LANTUS INSULIN SUBQ SCH (08:38)
--- NOTE | 2019-09-15 10:03 | Diag Imaging Result Doc PS360 ---
EXAM: CT THORAX W/O CONTRAST 09/15/2019 HISTORY: pneumonia vs atelectasis TECHNIQUE: This exam was performed using automated exposure control, adjustment of mA or kV according to patient size, and/or use of iterative reconstruction technique. COMMENT: The current examination is compared with 08/24/2019. There is a right pleural effusion with a smaller left pleural effusion. Compared to the previous study the volume of fluid in both pleural spaces is increased. There is also fluid in the right subphrenic space. There are some nonspecific nodes in the right paratracheal and aorticopulmonary window regions. There are calcified nodes in the right hilum. There is calcification in the left anterior descending and circumflex coronary arteries. There is consolidation of the entire right lower lobe and portions of the upper lobe and middle lobe. This is much worse than on the previous examination. There are additional nodular opacities present anteriorly in the left upper lobe and the medial segment of the right middle lobe which were not present on the previous examination. Some consolidation is present posteriorly in the left lower lobe.The regional skeleton is intact. IMPRESSION: Worsened pleural fluid collections and pulmonary consolidation with some nodular changes in the right middle lobe and left upper lobe suggesting septic emboli. The findings were discussed with Jagjit Camargo MD at 09/15/2019 10:00 AM. Electronically signed by Ashok Logan 09/15/2019 10:00 AM
--- NOTE | 2019-09-15 10:09 | Diag Imaging Result Doc PS360 ---
EXAM: BA SWALLOW W/VIDEO SPEECH THER 09/15/2019 HISTORY: aspiration TECHNIQUE: Five barium swallow, 164 images, 204 mGy, 31 seconds fluoroscopy time. COMMENT: The patient was able to swallow barium without difficulty. There is no evidence of aspiration. There is some presbyesophagus with tertiary contractions in the midesophagus and a mild degree of spasm. No evidence of achalasia is present. IMPRESSION: Presbyesophagus. No evidence of aspiration. Electronically signed by Ashok Logan 09/15/2019 10:07 AM
[2019-09-15] MEDS: CUBICIN 600 MG in NS 100 ML IV SCH (15:25)
--- NOTE | 2019-09-15 15:54 | PROGRESS NOTE ---
DATE: 09/15/2019 SUBJECTIVE: The patient reports less shortness of breath. He does not have any shortness of breath at rest. He continues to require oxygen by non-rebreather mask. No other issues noted. OBJECTIVE: Vital Signs: Temperature 98.4 degrees, heart rate 91, respiratory rate 22, oxygen saturation 92% on non-rebreather mask. General: This is a chronically ill-appearing 53-year-old male lying in bed, in no acute distress. Cardiovascular: S1, S2 heard. No murmurs, gallops, or rubs. Regular rate and rhythm. Respiratory: Some coarse breath sounds noted in both pulmonary bases. The patient is not using any accessory muscles or having work of breathing. Abdomen: Soft. Nontender to palpation. Bowel sounds present. No organomegaly. Extremities: No clubbing, cyanosis, or edema. Peripheral pulses present in both legs. Neurological: The patient is awake, not completely alert, follows basic commands. Moves all 4 extremities spontaneously. LABORATORY DATA: White cell count 14.67, hemoglobin 10.2, hematocrit 32.3, platelets 465,000, with a potassium of 2.8, magnesium 1.4. ASSESSMENT AND PLAN: 1. Acute hypoxemic respiratory failure. The patient's oxygen requirement continues to be the same, non-rebreather mask. We will continue to monitor this patient closely. 2. Bilateral pneumonia secondary to Pseudomonas. The patient is on ceftazidime and daptomycin. In the case of daptomycin day #20, ceftazidime is day #10. We will continue following recommendations from ID. 3. Possible osteomyelitis involving the left foot. Medical treatment has been recommended so we will continue with antibiotics as mentioned above. 4. Methicillin-resistant Staphylococcus aureus bacteremia. We will continue with daptomycin as per Infectious Disease recommendations. 5. Diabetes mellitus type 2. We will continue with sliding scale insulin and Accu-Cheks before meals and also at bedtime. 6. Possible aspiration pneumonia. Pulmonary has ordered a swallow evaluation for possible recurrent aspirations and we will see what it shows. 7. Hypertension. Blood pressure is under control. We will continue with the same management. 8. Acute kidney injury, resolved. 9. Disposition. We will continue to monitor this patient here in the PVC unit. cc: Cristo Henry MD
--- NOTE | 2019-09-15 18:51 | INFECTIOUS DISEASE PROGRESS NO ---
DATE: 09/15/2019 PRESENT ILLNESS: The patient has the following infections. 1. Methicillin-resistant Staph aureus bacteremia. 2. Left foot osteomyelitis. 3. Pseudomonas pneumonia. 4. The patient yesterday had a decline in his respiratory status and this could be due to a superimposed new organism causing the pneumonia or it could be that the patient has developed a methicillin-resistant Staph aureus and because the patient is on daptomycin he does not have any treatment for methicillin-resistant Staph aureus pneumonia because daptomycin does not get into any large amount in the lung tissue and it cannot be used for methicillin- resistant Staph aureus pneumonia. MEDICATIONS: This is the is the 21st day of treatment with daptomycin, day 10 of treatment with ceftazidime and day 2 on treatment with Zyvox. PHYSICAL EXAMINATION: Vital Signs: Temperature is 98.5 degrees, pulse 87, respirations 14, blood pressure is 146/83. General: This is an ill-appearing and lethargic middle-aged male. He is in no acute distress. Head/eyes/ears/nose/throat: He did not respond to verbal stimuli so I could not tell how good his hearing or vision is and he did not open his mouth so I did not get a good look at it. Neck: No apparent pain with movement of his neck. Lungs: Clear on the left and I did not hear any breath sounds on the right side. Cardiovascular: Heart rate is regular. Abdomen: Soft and nontender. Extremities: Both feet are not erythematous and they are not draining any pus. Patient has a PICC in the right arm. The site is not erythematous or purulent . Neurologic: As mentioned above, the patient is lethargic. He did not respond to verbal stimuli. Does not have a tremor. LAB AND X-RAY: CBC shows a white count of 14,670, hemoglobin 10.2, platelet count 465,000. Creatinine is 0.9. GFR is greater than still 60. Chest x-ray shows worsening of the right lung infiltrate/atelectasis. ASSESSMENT AND PLAN: As regarding the patient's osteomyelitis, I plan to continue with daptomycin and ceftazidime. As regards his Pseudomonas pneumonia I am going to continue with ceftazidime. As concerning his respiratory status specifically pneumonia, the patient may have developed atelectasis of the right lung. Therefore, I am going to continue with the current antibiotics including Zyvox, daptomycin, and ceftazidime and I am going to get a noncontrasted study of the chest so that we can determine if the patient has infiltrate or atelectasis of the lung. COMORBIDITIES: The patient has diabetes mellitus and he is an alcoholic. cc: Jagjit Camargo MD
--- NOTE | 2019-09-15 20:23 | ECHO REPORT ---
ORDER DATE: 09/15/2019 INDICATION: Diabetes, hypertension, and possible endocarditis. M-MODE MEASUREMENTS: Left ventricle end diastole: 4.6. Left ventricle end systole: 3.2. Posterior wall: 1.1. Interventricular septum: 1.2. Left atrium: 4.4. Aortic diameter: 3.3. SUMMARY OF 2-DIMENSIONAL IMAGIN. Left ventricular function is normal. Ejection fraction is 62%. There is no wall motion abnormality. 2. The left atrium is significantly enlarged. 3. The aortic valve appears to be grossly normal. Color flow mapping unremarkable. 4. The tricuspid valve also looks grossly normal. Color flow mapping unremarkable. Pulmonary pressure is estimated at 41 mmHg. 5. The mitral valve is unremarkable. 6. Pulsed wave Doppler of mitral inflow shows normal E/A ratio. 7. Tissue Doppler of septal and lateral mitral annulus averages 9 cm. There is no diastolic dysfunction. 8. The left atrium is significantly enlarged. 9. The pulmonic valve appears to be grossly unremarkable. 10.There is no pericardial effusion, no mass, and no thrombus. 11.The left-sided chambers are not enlarged. Clinical correlation recommended. There is no evidence of gross valvular endocarditis in this study. If there is a strong index of suspicion with a positive blood culture for Staphylococcus aureus or Streptococcus viridans or one of the usual germs involved in endocarditis, then consider doing a transesophageal echo. cc: MD Jagjit Lopez MD
[2019-09-16] MEDS: TAZIDIME 2 GM/NS 2 GM/100 ML IVPB IV SCH ×3 (01:17→17:12)
[2019-09-16] MEDS: HUMALOG SUBQ SCH ×6 (01:46→21:00)
[2019-09-16] MEDS: NORCO-7.5 PO PRN ×2 (03:33→12:55)
[2019-09-16] MEDS: ZYVOX 600 MG/D5W 600 MG/300 ML IVPB IV SCH ×2 (03:33→14:48)
[2019-09-16] MEDS: NORVASC PO SCH ×2 (09:09→22:43)
[2019-09-16] MEDS: LANTUS INSULIN SUBQ SCH (09:09)
[2019-09-16] MEDS: FLOMAX PO SCH ×2 (09:09→22:44)
[2019-09-16] MEDS: APRESOLINE PO SCH ×3 (09:09→22:43)
[2019-09-16] MEDS: LOPRESSOR PO SCH ×2 (09:09→22:43)
[2019-09-16] MEDS: CATAPRES PO SCH ×2 (09:10→22:43)
[2019-09-16] MEDS: LASIX IV ONE ×2 (11:21→15:33)
[2019-09-16] MEDS: CUBICIN 600 MG in NS 100 ML IV SCH (14:48)
[2019-09-16 15:12] LABS: BASO# 0.05 X1000 (0.0-0.2); BASO% 0.4 % (0.0-0.8); EOS# 1.77 X1000 (0.0-0.7); EOS% 12.8 % (0.0-10.0); HEMATOCRIT 33.3 % (42.0-52.0); HEMOGLOBIN 10.1 g/dL (14.0-18.0); IMM GRAN# 0.05 X1000 (0.0-0.04); IMM GRAN% 0.4 % (0.0-0.5); LYMPH# 1.69 X1000 (1.2-3.4); LYMPH% 12.2 % (20.5-51.1); MCH 28.9 PG (27-31); MCHC 30.3 g/dL (33-37); MCV 95.4 FL (81-99); MONO# 1.38 X1000 (0.11-0.59); MPV 10.3 FL (7.4-10.4); NEUT# 8.87 X1000 (1.4-6.5); NEUT% 64.2 % (42.2-75.2); PLT 243 X1000 (130-400); RBC 3.49 XMIL (4.7-6.1); RDW 14.3 % (11.5-14.5); WBC 13.81 X1000 (4.8-10.8)
[2019-09-16 15:38] LABS: AGAP 13; ALB/GLOB RATIO 0.6; ALBUMIN 2.7 g/dL (3.5-5.0); ALKALINE PHOSPHATASE 199 U/L (32-122); BUN 18 mg/dL (8-22); CALCIUM 9.1 mg/dL (8.8-10.2); CHLORIDE 96 mmol/L (98-107); COSMO 275; CREATININE 0.6 mg/dL (0.7-1.2); ESTIMATED GFR > 60; GLUCOSE 115 mg/dL (70-104); GOT 28 U/L (10-34); GPT 12 U/L (10-44); MAGNESIUM 1.6 mg/dL (1.5-2.7); PHOSPHORUS 2.9 mg/dL (2.7-4.5); POTASSIUM 3.2 mmol/L (3.5-5.1); SODIUM 136 mmol/L (136-145); TCO2 27 mmol/L (25-35); TOTAL BILIRUBIN 0.45 mg/dL (0.20-1.00); TOTAL PROTEIN 7.1 g/dL (6.3-8.3)
[2019-09-16 16:25] LABS: ALLEN TEST YES; BE 5.7 mmoll (-3.0-3.0); BLOOD TYPE ARTERIAL; HCO3-(ACT) 29.4 mmoll (20.0-26.0); METHB 1.7 % (0.0-1.5); O2(CT) 15.4 mL/dL (15.0-23.0); O2HB 96.3 % (95.0-99.0); PO2(98.6) 137 mmHg (60-100); SAMPLE BLOOD; SAO2 99.4 % (95.0-100.0); THB 11.2 g/dL (11.5-17.4)
--- NOTE | 2019-09-16 16:29 | Diag Imaging Result Doc PS360 ---
EXAM: CHEST-PORTABLE HISTORY: pulmonary edema TECHNIQUE: Single view COMPARISON: 09/15/2019 FINDINGS: Infiltrates and atelectasis remain in the right lung with a moderate sized effusion. Findings are actually slightly less prominent than on the prior study. No change in the right-sided PICC line. The left lung remains clear. IMPRESSION: Mild interval improvement. Electronically signed by Trent Moura 09/16/2019 4:27 PM
[2019-09-16 16:30] LABS: MODALITY NRB; PCO2(98.6) 51 mmHg (35-45)
[2019-09-16] MEDS: MORPHINE IV PRN ×2 (17:11→22:44)
--- NOTE | 2019-09-16 20:37 | PROGRESS NOTE ---
DATE: 09/16/2019 SUBJECTIVE: The patient reports feeling less short of breath. According to nursing staff, he is feeling depressed, and he is refusing all his medications and also labs as well. OBJECTIVE: Vital Signs: Temperature 97.9 degrees, heart rate 98, respiratory rate 16, blood pressure 160/96, O2 saturation 98% on nonrebreather mask. General: This is a chronically ill- appearing, 53-year-old, male, lying in bed, in no acute distress. Cardiovascular: S1, S2 heard. No murmurs, gallops, or rubs. Regular rate and rhythm. Respiratory: Coarse breath sounds noted still in both pulmonary bases as well as crackles. Patient is not using any accessory muscles or having work of breathing. Abdomen: Soft, nontender to palpation. Bowel sounds present. No organomegaly. Extremities: No clubbing, cyanosis, or edema. Peripheral pulses present in both legs. Neurological: Patient is awake, not completely alert, but following commands. Moves 4 extremities. LABORATORY DATA: There are no labs from today. Patient refused to have them. ASSESSMENT AND PLAN: 1. Acute hypoxemic respiratory failure. Patient unfortunately, continues to require non- rebreather mask. We will continue to monitor this patient closely. 2. Bilateral pneumonia secondary to Pseudomonas. We will continue with ceftazidime, daptomycin. In this case, daptomycin day #21, ceftazidime day #11. We will continue to follow recommendations from Infectious Disease. 3. Possible osteomyelitis involving the left foot. At this point, medical treatment has been recommended, so we will continue with antibiotics as mentioned above. 4. Methicillin-resistant Staphylococcus aureus bacteremia. The patient is on daptomycin as per Infectious Disease recommendation. 5. Diabetes mellitus type 2. We will continue with the sliding scale insulin, and Accu-Chek before meals and also at bedtime. 6. Aspiration pneumonia. Swallow evaluation has been ordered. We will see what it shows. 7. Hypertension. Blood pressure is under control. We will continue with same management. 8. Acute kidney injury. Resolved. 9. Bilateral pleural effusions and pulmonary edema. We will provide 1 dose of Lasix 80 mg and see how he does. cc: Cristo Henry MD MTDFrancesca
[2019-09-17] MEDS: HUMALOG SUBQ SCH ×6 (01:00→21:09)
[2019-09-17] MEDS: TAZIDIME 2 GM/NS 2 GM/100 ML IVPB IV SCH ×3 (01:00→17:59)
[2019-09-17] MEDS: ZYVOX 600 MG/D5W 600 MG/300 ML IVPB IV SCH ×2 (04:26→15:12)
[2019-09-17] MEDS: MORPHINE IV PRN ×6 (04:26→21:08)
[2019-09-17 04:36] LABS: ALLEN TEST YES; BE 11.8 mmoll (-3.0-3.0); BLOOD TYPE ARTERIAL; HCO3-(ACT) 34.2 mmoll (20.0-26.0); METHB 2.2 % (0.0-1.5); O2(CT) 7.8 mL/dL (15.0-23.0); O2HB 95.3 % (95.0-99.0); PO2(98.6) 112 mmHg (60-100); SAMPLE BLOOD; SAO2 99.6 % (95.0-100.0); THB 5.6 g/dL (11.5-17.4); pH(98.6) 7.41 (7.35-7.45)
[2019-09-17 04:37] LABS: MODALITY PRB; PCO2(98.6) 59 mmHg (35-45)
[2019-09-17 06:11] LABS: HEMATOCRIT 34.8 % (42.0-52.0); HEMOGLOBIN 10.5 g/dL (14.0-18.0); MCHC 30.2 g/dL (33-37); MCV 96.1 FL (81-99); MPV 10.2 FL (7.4-10.4); RBC 3.62 XMIL (4.7-6.1); WBC 15.56 X1000 (4.8-10.8)
[2019-09-17 06:52] LABS: MAGNESIUM 1.4 mg/dL (1.5-2.7); PHOSPHORUS 2.9 mg/dL (2.7-4.5)
[2019-09-17 07:03] LABS: AGAP 13; ALB/GLOB RATIO 0.6; ALBUMIN 2.8 g/dL (3.5-5.0); ALKALINE PHOSPHATASE 254 U/L (32-122); BUN 14 mg/dL (8-22); CALCIUM 9.2 mg/dL (8.8-10.2); CHLORIDE 96 mmol/L (98-107); COSMO 280; CREATININE 0.7 mg/dL (0.7-1.2); ESTIMATED GFR > 60; GLUCOSE 143 mg/dL (70-104); GOT 30 U/L (10-34); GPT 11 U/L (10-44); POTASSIUM 2.8 mmol/L (3.5-5.1); SODIUM 139 mmol/L (136-145); TCO2 30 mmol/L (25-35); TOTAL BILIRUBIN 0.52 mg/dL (0.20-1.00); TOTAL PROTEIN 7.3 g/dL (6.3-8.3)
[2019-09-17] MEDS: LOPRESSOR PO SCH ×2 (08:12→21:11)
[2019-09-17] MEDS: NORVASC PO SCH ×2 (08:12→21:11)
[2019-09-17] MEDS: CATAPRES PO SCH ×2 (08:12→21:11)
[2019-09-17] MEDS: FLOMAX PO SCH ×2 (08:12→21:11)
[2019-09-17] MEDS: NORCO-7.5 PO PRN ×2 (08:13→15:59)
[2019-09-17] MEDS: APRESOLINE PO SCH ×3 (08:13→21:11)
[2019-09-17] MEDS: LANTUS INSULIN SUBQ SCH (09:14)
[2019-09-17] MEDS ORDERED: POTASSIUM CHLORIDE 60 MEQ in NS 500 ML IV ONE (10:00)
[2019-09-17] MEDS ORDERED: MAGNESIUM SULFATE 2 GM/S.W.I. 2 GM/50 ML IVPB IV ONE (10:00)
[2019-09-17] MEDS: LASIX IV SCH ×2 (10:15→21:10)
--- NOTE | 2019-09-17 10:32 | PROGRESS NOTE ---
DATE: 09/17/2019 SUBJECTIVE: Patient reports still feeling short of breath but a little bit better in comparing with yesterday. OBJECTIVE: Vital Signs: Temperature is 98.7 degrees, heart rate 65, respiratory rate 11, blood pressure 99/59, O2 saturation 95% on Venturi mask. General Examination: This is a chronically ill-appearing, 53-year-old male, lying in bed, in no acute distress. Cardiovascular: S1, S2 heard. No murmurs, gallops, or rubs. Regular rate and rhythm. Respiratory: Coarse breath sounds and crackles noted in both pulmonary bases. Patient is not using any accessory muscles or having work of breathing. Abdomen: Soft, nontender to palpation. Bowel sounds present. No organomegaly. Extremities: No clubbing, cyanosis, or edema. Peripheral pulses present in both legs. Neurological: The patient is alert, awake. Follow commands. Moves 4 extremities. LABORATORY DATA: White cell count 15.56, hemoglobin 10.5, hematocrit 34.8, platelets 401,000. ABG shows pH 7.41, pCO2 59, pO2 112. Potassium 2.8, magnesium 1.4. ASSESSMENT AND PLAN: 1. Acute hypoxemic respiratory failure. The patient continues to requires Venturi mask. He was transferred to the intensive care unit because even on that, he was feeling very short of breath and tachypneic. Today, he reports feeling better. I think we will continue to monitor this patient here in the intensive care unit. 2. Bilateral pneumonia secondary to Pseudomonas. We will continue with antibiotics as directed by Dr. Camargo. Currently, this patient is on ceftazidime day #12, daptomycin day #22, and also Zyvox. We will continue with same management. 3. Possible osteomyelitis involving the left foot. Medical treatment has been recommended for him to continue with antibiotics as mentioned above. 4. Diabetes mellitus type 2. We will continue with sliding scale insulin. Accu-Chek before meals and also at bedtime. 5. Aspiration pneumonia. We will continue with current treatment. Swallow evaluation has been ordered. 6. Hypertension. Blood pressure is under control. We will continue with the same management. 7. Acute kidney injury, resolved. 8. Bilateral pleural effusion with pulmonary edema. We will continue with Lasix. 9. Disposition. We will continue to monitor this patient here in the intensive care unit. cc: Cristo Henry MD MTDD
--- NOTE | 2019-09-17 13:56 | INFECTIOUS DISEASE PROGRESS NO ---
DATE: 09/17/2019 PRESENT ILLNESS: The patient has the following infections: 1. Methicillin-resistant Staphylococcus aureus bacteremia. 2. Left foot osteomyelitis. 3. Pseudomonas pneumonia. 4. The patient is complaining of quite a bit of neck pain and I think it is possible that since the patient was bacteremic, he could have an infection of the cervical spine. 5. The patient, in addition to having a Pseudomonas pneumonia, may have a pneumonia due to another organism also. The one specifically I would be thinking about his methicillin-resistant Staphylococcus aureus because the patient was bacteremic. MEDICATIONS: This is day 23 of treatment with daptomycin, day 12 of treatment with ceftazidime, and day 4 of treatment with Zyvox. PHYSICAL EXAMINATION: Vital Signs: Temperature is 99 degrees, pulse 97, respirations 16, blood pressure 110/60. General: This is an ill-appearing and lethargic, middle-aged male. He currently does not appear to be in any acute distress. Head, Eyes, Ears, Nose, and Throat: He can hear my spoken words and see near objects. I did not see any white coating of his tongue. Neck: The patient has his head turned to the right and any attempt to move it causes him to have pain. Lungs: Clear to auscultation. Cardiovascular: Heart rate is regular. Abdomen: Soft and nontender. Extremities: Both feet are not erythematous and they are not draining any purulence. The patient has a PICC in his right arm and the site is not erythematous or purulent. Neurologic: The patient does respond to verbal stimuli and he is able to carry on a coherent conversation. LAB AND X-RAY: CBC shows a white count of 15,560, hemoglobin 10.5, and platelet count 401,000. Blood gases show a pH of 7.41, a PO2 of 112, and a pCO2 of 59. Creatinine is 0.7. GFR is greater than 60. Liver function studies are normal. The patient's IgG is 1776 and IgA is 927. ASSESSMENT AND PLAN: The patient has left foot osteomyelitis, Pseudomonas pneumonia, and possibly there could be another organism causing pneumonia and a methicillin-resistant Staphylococcus aureus. He also is having neck pain. I plan on continuing the current antibiotics and I am going to go ahead tomorrow and get an x-ray and a three-phase bone scan of the patient's cervical spine to see if he has osteomyelitis of the spine. COMORBIDITIES: The patient is a diabetic and is alcoholic. cc: Jagjit Camargo MD
[2019-09-17] MEDS: CUBICIN 600 MG in NS 100 ML IV SCH (15:59)
[2019-09-18] MEDS: MORPHINE IV PRN ×6 (00:01→16:31)
[2019-09-18] MEDS: NORCO-7.5 PO PRN ×3 (00:02→21:09)
[2019-09-18] MEDS: TAZIDIME 2 GM/NS 2 GM/100 ML IVPB IV SCH ×3 (00:08→17:17)
[2019-09-18] MEDS: ZYVOX 600 MG/D5W 600 MG/300 ML IVPB IV SCH ×2 (03:36→15:23)
[2019-09-18] MEDS: LOVENOX SUBQ SCH (06:12)
[2019-09-18] MEDS: HUMALOG SUBQ SCH ×4 (06:27→21:07)
--- NOTE | 2019-09-18 08:21 | INFECTIOUS DISEASE PROGRESS NO ---
DATE: 09/18/2019 PRESENT ILLNESS: The patient has the following problems: 1. Methicillin-resistant Staph aureus bacteremia. 2. Left foot osteomyelitis. 3. Pseudomonas pneumonia, and there may be another organism superimposed causing the pneumonia as well. 4. Neck pain, which could be due to an infection in the cervical spine due to the patient having a Staph aureus bacteremia. The cervical spine could have gotten infected hematogenously. This morning, the patient tells me he is dyspneic. This could be due to his pneumonia. Also, pulmonary embolus could be a possibility. MEDICATIONS: The patient has been on daptomycin for 24 days, ceftazidime for 13 days, and Zyvox for 5 days. PHYSICAL EXAMINATION: Vital Signs: Temperature is 98.4 degrees, pulse 83, respirations 12, blood pressure is 136/73. General: This is an ill-appearing, middle-aged male. He is complaining of dyspnea currently. HEENT: He can hear my spoken words and see near objects. I did not see any white patches in his mouth. Neck: The patient's head is turned to the right, and he says that it hurts him anytime he moves it. Lungs: Clear to auscultation. Cardiovascular: Heart rate is regular. Abdomen: Soft and nontender. Extremities: Both feet are not erythematous or tender. The patient has a PICC in the right arm. The site is not erythematous or purulent. IMAGING AND LABORATORY DATA: Prior echocardiogram showed no vegetation. The patient does not have any lab back for today. Also, there is not any radiographic study back yet today. Prior echocardiogram was negative for endocarditis. CK result for today is pending. ASSESSMENT AND PLAN: The patient does have left foot osteomyelitis, a Pseudomonas pneumonia with possibly another organism causing the pneumonia along with Pseudomonas. The patient could have a bacteremia. I am going to continue his current antibiotics as mentioned above, namely daptomycin, ceftazidime, and Zyvox. Also, the patient is scheduled to have an x-ray of the cervical spine, and a 3-phase bone scan also has been ordered. The patient has lab studies ordered, but they have not returned. There is no radiographic study yet today. The patient has foot osteomyelitis, Pseudomonas pneumonia with possibly super infection, a methicillin-resistant Staphylococcus aureus bacteremia, neck pain, and the patient is dyspneic, for which I have ordered a chest x-ray. COMORBIDITIES: The patient is diabetic and an alcoholic. cc: Jagjit Camargo MD MTDD
[2019-09-18] MEDS: DUONEB (A & A) INH PRN (08:31)
[2019-09-18] MEDS: CATAPRES PO SCH ×2 (08:49→21:11)
[2019-09-18] MEDS: FLOMAX PO SCH ×2 (08:49→21:11)
[2019-09-18] MEDS: LOPRESSOR PO SCH ×2 (08:50→21:10)
[2019-09-18] MEDS: APRESOLINE PO SCH ×4 (08:50→21:09)
[2019-09-18] MEDS: NORVASC PO SCH ×2 (08:50→21:10)
[2019-09-18] MEDS: LANTUS INSULIN SUBQ SCH (08:51)
[2019-09-18] MEDS: LASIX IV SCH ×2 (08:51→21:11)
[2019-09-18 09:42] LABS: HEMATOCRIT 33.4 % (42.0-52.0); HEMOGLOBIN 10.2 g/dL (14.0-18.0); MCH 29.5 PG (27-31); MCHC 30.5 g/dL (33-37); MCV 96.5 FL (81-99); RBC 3.46 XMIL (4.7-6.1); WBC 15.06 X1000 (4.8-10.8)
--- NOTE | 2019-09-18 09:43 | PROGRESS NOTE ---
DATE: 09/18/2019 SUBJECTIVE: The patient reports less shortness of breath. Denies any fever or chills. No acute issues noted as per nursing staff overnight. OBJECTIVE: Vital Signs: Temperature 98.4 degrees, heart rate 83, respiratory rate 12, blood pressure 136/63, O2 saturation 94% on Ventimask. General: This is a chronically ill-appearing, 53-year-old, male, lying in bed in no acute distress. Cardiovascular: S1, S2 heard. No murmurs, gallops, or rubs. Regular rate and rhythm. Respiratory: Coarse breath sounds and crackles noted in both pulmonary bases, unchanged during the last 3 to 4 days. Patient not using any accessory muscles or having work of breathing. Abdomen: Soft, nontender to palpation. Bowel sounds present. No organomegaly. Extremities: No clubbing, cyanosis, or edema. Peripheral pulses present in both legs. Neurological: The patient is alert and oriented x3. Moves all 4 extremities. LABORATORY DATA: There are no labs from today. ABG is also pending. ASSESSMENT AND PLAN: 1. Acute hypoxemic respiratory failure. The patient continues to require better Ventimask, but he reports that he is breathing better. I think at this point, the patient is less short of breath, so will transfer him to a regular room today. Will reorder labs that we know that he has been refusing. Will continue to monitor. 2. Bilateral pneumonia secondary to Pseudomonas. Will continue with antibiotics as directed by Dr. Camargo. 3. Possible osteomyelitis involving the left foot. Medical treatment has been recommended for him, according to Dr. Camargo from Infectious Disease. 4. Diabetes mellitus type 2. Will continue with sliding scale insulin, Accu-Cheks before meals and also at bedtime. 5. Aspiration pneumonia. Will continue with current treatment. 6. Hypertension. Blood pressure is under good control. Will continue with the same medications. 7. Acute kidney injury, resolved. 8. Bilateral pleural effusion with pulmonary edema. Will continue with Lasix. 9. Disposition. Will transfer this patient to a regular room today. cc: Cristo Henry MD
[2019-09-18 10:26] LABS: AGAP 8; ALB/GLOB RATIO 0.4; ALBUMIN 2.3 g/dL (3.5-5.0); ALKALINE PHOSPHATASE 248 U/L (32-122); BUN 14 mg/dL (8-22); CALCIUM 9.2 mg/dL (8.8-10.2); CHLORIDE 94 mmol/L (98-107); COSMO 280; CREATININE 0.7 mg/dL (0.7-1.2); ESTIMATED GFR > 60; GLUCOSE 132 mg/dL (70-104); GOT 28 U/L (10-34); GPT 12 U/L (10-44); MAGNESIUM 1.5 mg/dL (1.5-2.7); PHOSPHORUS 2.3 mg/dL (2.7-4.5); POTASSIUM 3.5 mmol/L (3.5-5.1); SODIUM 139 mmol/L (136-145); TCO2 37 mmol/L (25-35); TOTAL BILIRUBIN 0.42 mg/dL (0.20-1.00); TOTAL PROTEIN 7.6 g/dL (6.3-8.3)
[2019-09-18] MEDS ORDERED: NS 1,000 ML IV SCH (10:45)
--- NOTE | 2019-09-18 13:43 | Diag Imaging Result Doc PS360 ---
EXAM: CHEST-1 VIEW 09/18/2019 HISTORY: dyspnea TECHNIQUE: AP supine at 1330 COMMENT: There is a PICC line on the right with its tip just above the right atrium. There is apparent pleural fluid on the right. There is opacification of the right lower and middle lobes. There our also opacities in the right upper lobe which appear to have worsened slightly since 09/16/2019. IMPRESSION: Right upper middle and lower lobe pneumonia. Right pleural effusion. Electronically signed by Ashok Logan 09/18/2019 1:41 PM
--- NOTE | 2019-09-18 13:46 | Diag Imaging Result Doc PS360 ---
EXAM: CERVICAL SPINE 2-VIEWS 09/18/2019 HISTORY: neck pain TECHNIQUE: Cervical spine AP and lateral three views COMMENT: There is no evidence of fracture subluxation or prevertebral soft tissue swelling. C7 is not well demonstrated on the lateral. IMPRESSION: No evidence of acute bony abnormality. Electronically signed by Ashok Logan 09/18/2019 1:44 PM
--- NOTE | 2019-09-18 14:35 | Diag Imaging Result Doc PS360 ---
EXAM: 3 PHASE BONE SCAN HISTORY: C spine osteomyelitis TECHNIQUE: Nuclear medicine Three phase bone scan COMPARISON: None. FINDINGS: 28.1 mCi MDP administered. Coned down images over the head and neck. There is symmetric activity on the blood flow images. No focal abnormal area on the blood pool images at five, 10, and 15 minutes. Mild increased activity in the lower cervical spine on the delayed images. IMPRESSION: No evidence of osteomyelitis in the cervical spine. Electronically signed by Trent Moura 09/18/2019 2:33 PM
[2019-09-18] MEDS: CUBICIN 600 MG in NS 100 ML IV SCH (16:32)
[2019-09-18 23:24] LABS: BASO# 0.05 X1000 (0.0-0.2); BASO% 0.3 % (0.0-0.8); EOS# 1.97 X1000 (0.0-0.7); EOS% 13.4 % (0.0-10.0); HEMATOCRIT 32.9 % (42.0-52.0); HEMOGLOBIN 10.2 g/dL (14.0-18.0); IMM GRAN# 0.05 X1000 (0.0-0.04); IMM GRAN% 0.3 % (0.0-0.5); LYMPH# 1.69 X1000 (1.2-3.4); LYMPH% 11.5 % (20.5-51.1); MCH 29.4 PG (27-31); MCV 94.8 FL (81-99); MONO# 1.26 X1000 (0.11-0.59); MONO% 8.6 % (1.7-9.3); MPV 9.2 FL (7.4-10.4); NEUT# 9.68 X1000 (1.4-6.5); NEUT% 65.9 % (42.2-75.2); PLT 461 X1000 (130-400); RBC 3.47 XMIL (4.7-6.1); RDW 13.8 % (11.5-14.5)
[2019-09-18 23:32] LABS: INR 1.83; PROTIME 21.6 Seconds (11.0-16.0)
[2019-09-18 23:33] LABS: PTT 51.8 Seconds (22.3-41.8)
[2019-09-18 23:59] LABS: AGAP 7; ALB/GLOB RATIO 0.6; ALBUMIN 2.5 g/dL (3.5-5.0); ALKALINE PHOSPHATASE 220 U/L (32-122); BUN 12 mg/dL (8-22); CALCIUM 9.3 mg/dL (8.8-10.2); CHLORIDE 93 mmol/L (98-107); COSMO 277; CREATININE 0.7 mg/dL (0.7-1.2); ESTIMATED GFR > 60; GLUCOSE 96 mg/dL (70-104); GOT 26 U/L (10-34); GPT 10 U/L (10-44); POTASSIUM 2.7 mmol/L (3.5-5.1); SODIUM 139 mmol/L (136-145); TCO2 39 mmol/L (25-35); TOTAL BILIRUBIN 0.44 mg/dL (0.20-1.00)
[2019-09-19] MEDS: MORPHINE IV PRN ×4 (00:21→20:22)
[2019-09-19] MEDS: TAZIDIME 2 GM/NS 2 GM/100 ML IVPB IV SCH ×5 (01:25→17:52)
[2019-09-19] MEDS: ZYVOX 600 MG/D5W 600 MG/300 ML IVPB IV SCH ×2 (04:08→16:32)
[2019-09-19] MEDS: LOVENOX SUBQ SCH (06:13)
[2019-09-19] MEDS: NORCO-7.5 PO PRN ×3 (06:13→22:44)
[2019-09-19 06:23] LABS: HEMATOCRIT 32.9 % (42.0-52.0); HEMOGLOBIN 10.3 g/dL (14.0-18.0); MCH 29.6 PG (27-31); MCHC 31.3 g/dL (33-37); MCV 94.5 FL (81-99); RBC 3.48 XMIL (4.7-6.1); RDW 13.7 % (11.5-14.5); WBC 15.34 X1000 (4.8-10.8)
[2019-09-19 06:44] LABS: AGAP 14; ALB/GLOB RATIO 0.6; ALBUMIN 2.7 g/dL (3.5-5.0); ALKALINE PHOSPHATASE 234 U/L (32-122); BUN 11 mg/dL (8-22); CHLORIDE 92 mmol/L (98-107); COSMO 278; CREATININE 0.7 mg/dL (0.7-1.2); ESTIMATED GFR > 60; GLUCOSE 115 mg/dL (70-104); GOT 25 U/L (10-34); GPT 10 U/L (10-44); MAGNESIUM 1.3 mg/dL (1.5-2.7); PHOSPHORUS 2.3 mg/dL (2.7-4.5); POTASSIUM 2.9 mmol/L (3.5-5.1); SODIUM 139 mmol/L (136-145); TCO2 33 mmol/L (25-35); TOTAL BILIRUBIN 0.47 mg/dL (0.20-1.00); TOTAL PROTEIN 6.9 g/dL (6.3-8.3)
--- NOTE | 2019-09-19 06:59 | PULMONOLOGY PROGRESS NOTE ---
DATE: 09/18/2019 SUBJECTIVE: The patient has been moved to the fourth floor. He is awake, alert, and conversant. He has a very weak cough effort. He reports that he hurts too much to get out of bed. OBJECTIVE: Vital Signs: The patient has been afebrile for the last 24 hours. Blood pressure 117/69, heart rate 80, respiratory rate 17, oxygen saturation 94% on Venturi mask. HEENT: Pupils are equal and reactive. Oropharynx appears clear. Neck: Supple. Chest: Diminished breath sounds in the right base with scattered rhonchi. Cardiac: S1, S2. Abdomen: Soft. Extremities: Reveal 1+ peripheral edema. IMAGING AND LABORATORY DATA: Chest x-ray reveals right middle and lower lobe pneumonia with small effusion. White blood count 15,000, hemoglobin 10.2, platelet count 401,000. IMPRESSION: A 53-year-old with: 1. Pneumonia. 2. Osteomyelitis. 3. Hypoxemic respiratory failure. 4. Hypercapnic respiratory failure. 5. Diabetes mellitus. 6. Osteomyelitis. DISCUSSION: A 53-year-old with problems outlined above. He is difficult to motivate. He has a very poor cough effort, which will make it more difficult to clear his pneumonia. PLAN: 1. Continue antibiotics per Infectious Disease. 2. Strongly encourage the patient to use his incentive spirometer and deep breathing and cough. 3. Encourage the patient to get out of bed and utilize Physical Therapy. 4. Wean oxygen as tolerated. cc: Michael Goins MD
[2019-09-19] MEDS: HUMALOG SUBQ SCH ×4 (07:47→20:56)
--- NOTE | 2019-09-19 08:00 | Diag Imaging Result Doc PS360 ---
EXAM: CHEST-2 VIEWS 09/19/2019 HISTORY: abnormal exam TECHNIQUE: PA and lateral chest COMMENT: There is alveolar opacification throughout most of the right lung particularly in the lower and middle lobes. The left lung is largely clear. Compared to 09/18/2019 the appearance of the chest is slightly worse although this may be due to differences in inspiration. The PICC line on the right remains with its tip in the right atrium. IMPRESSION: Pleural and parenchymal opacification on the right. Electronically signed by Ashok Logan 09/19/2019 7:58 AM
[2019-09-19] MEDS: CATAPRES PO SCH ×2 (08:26→20:22)
[2019-09-19] MEDS: NORVASC PO SCH ×2 (08:26→20:21)
[2019-09-19] MEDS: LOPRESSOR PO SCH ×2 (08:27→20:21)
[2019-09-19] MEDS: MYCOSTATIN SUSP PO SCH ×4 (08:27→20:22)
[2019-09-19] MEDS: LANTUS INSULIN SUBQ SCH (08:27)
[2019-09-19] MEDS: FLOMAX PO SCH ×2 (08:27→20:21)
[2019-09-19] MEDS: APRESOLINE PO SCH ×3 (08:28→21:15)
[2019-09-19] MEDS ORDERED: CALMOSEPTINE OINTMENT TOP PRN (10:53)
[2019-09-19] MEDS ORDERED: FLU VACCINE IM ONE (11:09)
[2019-09-19] MEDS ORDERED: VANCOMYCIN IV PER PHARMACY MISC SCH (12:45)
[2019-09-19] MEDS: VANCOMYCIN 2,000 MG in NS 500 ML IV SCH (14:26)
[2019-09-19] MEDS ORDERED: POTASSIUM PHOSPHATE 15 MMOL in NS 250 ML IV ONE (15:52)
[2019-09-19] MEDS ORDERED: MAGNESIUM SULFATE 2 GM/S.W.I. 2 GM/50 ML IVPB IV ONE (15:52)
--- NOTE | 2019-09-19 19:38 | INFECTIOUS DISEASE PROGRESS NO ---
DATE: 09/19/2019 PRESENT ILLNESS: The patient has the following infections. 1. Methicillin-resistant Staph aureus bacteremia. 2. Left foot osteomyelitis . 3. Pseudomonas pneumonia plus there could be another organism involved, most likely methicillin- resistant Staph aureus. The patient yesterday also complained of a lot of neck pain but it appears it has cleared up today. MEDICATIONS: The patient currently is receiving a combination of ceftazidime and daptomycin. LAB AND X-RAY: The patient's CBC the white count is 15,340, hemoglobin 10.3, and platelet count 395,000. Creatinine is 0.7 GFR is greater than 60. CK is 16. Chest x-ray shows right middle lobe and lower lobe opacification. PHYSICAL EXAMINATION: Vital Signs: Temperature is 97.7 degrees, pulse 80, respirations 20, blood pressure 143/78. General: This is a somewhat ill-appearing, middle-aged male. He is in no acute distress at this time. Head/eyes/ears/nose/throat: He can hear my spoken words and see near objects. There is no white coating to his tongue. Neck: Today he is able to move his neck much better and it does not seem to hurt him. Lungs: Clear to auscultation. Cardiovascular: Regular heart rate. Abdomen: Soft and nontender. Extremities: Both feet distally are not erythematous or purulent. The patient has a PICC in the right arm. That site is not erythematous or purulent either. ASSESSMENT AND PLAN: Patient has pneumonia and foot osteomyelitis and bacteremia as well. I am going to continue with ceftazidime. I have discontinued daptomycin and started the patient on vancomycin. Some of the side effects of the antibiotics, including rash, diarrhea, renal toxicity, and ototoxicity have been explained the patient who agrees with treatment. COMORBIDITIES: The patient is a diabetic and also an alcoholic. cc: Jagjit Camargo MD
--- NOTE | 2019-09-19 19:38 | PROGRESS NOTE ---
DATE: 09/19/2019 SUBJECTIVE: This patient seems to be feeling a bit better, but he is complaining of generalized weakness. As per the patient, he cannot walk unless he uses a walker, but as per the nurse, he has been refusing to do some activity. He denies fever or chills. No issues during the night. I have requested Physical Therapy and Occupational Therapy to work twice a day on this patient. Also, I will start bladder training. It looks like the Kelly catheter has been removed twice, but he has been retaining urine. OBJECTIVE: Vital Signs: Temperature 97.7 degrees, pulse 80, respiratory rate 20, blood pressure 143/78, oxygen saturation 95% on a Venturi mask. HEENT: Head normocephalic, no trauma. PERRLA. Neck: Supple. No JVD. No masses. Central trachea. Chest: Coarse breath sounds bilaterally with crackles mostly on the right side. Decreased breath sounds on the right side. Abdomen: Soft, nontender, nondistended. No hepatosplenomegaly. Extremities: No edema. No clubbing. No cyanosis. He has amputation of some of his toes bilaterally, but no open wound detected. Neurological: Awake, alert. He is following commands, answering my questions. He does have generalized weakness, maybe some tremors at the upper extremities. LABORATORY: WBC 15.3, hemoglobin 10.3, hematocrit 32.9, platelets 395,000. Sodium 139, potassium 2.9, chloride 92, bicarbonate 33, BUN 11, creatinine 0.7, glucose 115, calcium 9, phosphorus 2.3, magnesium 1.3, BUN 11, creatinine 0.7, albumin 2.7. ASSESSMENT AND PLAN: 1. Hypoxemic and hypercarbic respiratory failure likely due to a combination of fluid and bilateral lower lobe pseudomonal pneumonia. We will continue with antibiotics per Infectious Disease Department. Pulmonary Department on board. 2. Possible osteomyelitis involving the left foot. We will continue with IV antibiotics. Surgery on board. 3. Methicillin-resistant Staphylococcus aureus bacteremia. Continue with daptomycin. Infectious Disease Department on board. I will follow their recommendations. 4. Type 2 diabetes. Not well controlled. Continue with the same treatment seems to be more stable now compared with admission. His hemoglobin A1c was 10.1. 5. Hypertension. Controlled. 6. Acute kidney injury. Resolved. 7. Electrolyte abnormalities including hypokalemia, hypomagnesemia, and hypophosphatemia. I will replace all of them. 8. Initially admitted due to diabetic ketoacidosis. Resolved. 9. Alcohol abuse with possible alcohol withdrawal during admission. Seems to be better. Continue with the same management for now. 10. Urinary retention. Urology Department will evaluate this patient as an outpatient once this patient is better. We will do bladder training in-house. 11. Encephalopathy. Resolved, but as per the patient, he has been having some confusion on and off. cc: Flip Couch MD
[2019-09-19] MEDS ORDERED: LASIX IV ONE (19:39)
[2019-09-20] MEDS: TAZIDIME 2 GM/NS 2 GM/100 ML IVPB IV SCH ×3 (00:12→18:10)
[2019-09-20] MEDS: MORPHINE IV PRN ×7 (00:16→21:23)
[2019-09-20 00:29] LABS: URINE SOURCE CATH
[2019-09-20 01:07] LABS: BILIRUBIN URINE NEGATIVE (NEGATIVE); BLOOD URINE MODERATE (NEGATIVE); COLOR YELLOW; GLUCOSE URINE NEGATIVE (NEGATIVE); KETONE URINE NEGATIVE (NEGATIVE); LEUKOCYTES URINE NEGATIVE (NEGATIVE); NITRITE URINE NEGATIVE (NEGATIVE); PH URINE 7.5; PROTEIN URINE TRACE mg/dL (NEGATIVE); SP GRAVITY URINE 1.009; TURBIDITY URINE CLEAR (CLEAR); UR EPITHELIAL CELLS <10 /HPF (<10); URINE BACTERIA NEGATIVE /HPF; URINE RBC TNTC /HPF (<10); URINE WBC <10 /HPF (<10); UROBILINOGEN URINE NORMAL (NORMAL)
[2019-09-20] MEDS: VANCOMYCIN 2,000 MG in NS 500 ML IV SCH ×2 (01:31→13:49)
[2019-09-20] MEDS: ZYVOX 600 MG/D5W 600 MG/300 ML IVPB IV SCH ×2 (03:55→16:32)
[2019-09-20] MEDS: LOVENOX SUBQ SCH (06:07)
[2019-09-20] MEDS: NORCO-7.5 PO PRN ×3 (06:07→18:08)
[2019-09-20] MEDS: HUMALOG SUBQ SCH ×4 (06:39→21:09)
[2019-09-20 07:34] LABS: HEMATOCRIT 32.3 % (42.0-52.0); MCH 29.2 PG (27-31); MCV 94.2 FL (81-99); MPV 10.3 FL (7.4-10.4); RBC 3.43 XMIL (4.7-6.1); RDW 13.8 % (11.5-14.5); WBC 10.88 X1000 (4.8-10.8)
[2019-09-20 07:47] LABS: MAGNESIUM 1.6 mg/dL (1.5-2.7); PHOSPHORUS 3.4 mg/dL (2.7-4.5)
--- NOTE | 2019-09-20 07:52 | PULMONOLOGY PROGRESS NOTE ---
DATE: 09/19/2019 SUBJECTIVE: Chart is reviewed. The patient refused to take a bath. The patient has not been seen by Physical Therapy in 4 days. Reorder has been placed by Dr. Bansal. The patient does not appear to be aiding in his own care. OBJECTIVE: Vital Signs: The patient has been afebrile for the last 24 hours. Blood pressure 138/81, heart rate 89, respiratory rate 22, oxygen saturation 98% on 50% FiO2. HEENT: Pupils are equal and reactive. Oropharynx appears clear. Neck: Supple. Chest: Coarse rhonchi bilaterally. Cardiac: S1, S2. Abdomen: Soft with good bowel sounds. Extremities: There is +1 peripheral edema. LABORATORY DATA: Sodium 139, potassium 2.9, chloride 92, bicarbonate 33, BUN 11, creatinine 0.7, glucose 115. White blood count 15.3, hemoglobin 10.3, platelet count 395,000. IMPRESSION: A 53-year-old with: 1. Pneumonia. 2. Osteomyelitis. 3. Hypoxemic respiratory failure. 4. Hypercapnic respiratory failure. 5. Diabetes mellitus. DISCUSSION: A 53-year-old with problems outlined above. He is not improving, in part because he is not helping with his care. He refused to deep breathe and cough. He is not actively pursuing physical therapy. PLAN: 1. Continue antibiotics per Infectious Disease. 2. Agree with Physical Therapy evaluation and attempt to mobilize the patient. 3. Wean oxygen as tolerated. cc: Michael Goins MD
[2019-09-20 08:03] LABS: AGAP 12; ALB/GLOB RATIO 0.6; ALBUMIN 2.8 g/dL (3.5-5.0); ALKALINE PHOSPHATASE 216 U/L (32-122); BUN 12 mg/dL (8-22); CALCIUM 8.7 mg/dL (8.8-10.2); CHLORIDE 90 mmol/L (98-107); COSMO 279; CREATININE 0.6 mg/dL (0.7-1.2); ESTIMATED GFR > 60; GLUCOSE 164 mg/dL (70-104); GOT 26 U/L (10-34); GPT 7 U/L (10-44); SODIUM 138 mmol/L (136-145); TCO2 36 mmol/L (25-35); TOTAL BILIRUBIN 0.54 mg/dL (0.20-1.00); TOTAL PROTEIN 7.2 g/dL (6.3-8.3)
[2019-09-20] MEDS: NORVASC PO SCH ×2 (09:13→21:23)
[2019-09-20] MEDS: LOPRESSOR PO SCH ×2 (09:13→21:28)
[2019-09-20] MEDS: CATAPRES PO SCH ×2 (09:13→21:23)
[2019-09-20] MEDS: MYCOSTATIN SUSP PO SCH ×4 (09:13→21:23)
[2019-09-20] MEDS: APRESOLINE PO SCH ×3 (09:14→21:28)
[2019-09-20] MEDS: FLOMAX PO SCH ×2 (09:15→21:23)
[2019-09-20] MEDS: LANTUS INSULIN SUBQ SCH (09:15)
[2019-09-20] MEDS ORDERED: KLOR-CON PO ONE (09:50)
--- NOTE | 2019-09-20 13:01 | PROGRESS NOTE ---
DATE: 09/20/2019 SUBJECTIVE: The patient seems to be about the same compared with yesterday. He is still complaining of generalized pain and generalized weakness but this patient is not trying to do too much physical activity either. I have requested physical therapy to work with this patient twice a day as well as occupational therapy. The white blood cell count is trending down. He is still on a Venturi mask, but he is not complaining of shortness of breath and when I was examining this patient I spent with him around 10 to 15 minutes and he never used the Venturi mask. I will replace the potassium. OBJECTIVE: Vital Signs: Temperature 97.9 degrees, pulse 64, respiratory rate 16, blood pressure 131/76, oxygen saturation 99 on a Venturi mask. HEENT: Head normocephalic, no trauma. PERRLA. Neck: Supple. No JVD. No masses. Central trachea. Chest: Coarse breath sounds bilaterally with crackles on the right side. Decreased breath sounds on the right side as well. Abdomen: Soft, nontender, nondistended. No hepatosplenomegaly. Extremities: 1+ lower extremity edema. No clubbing. No cyanosis. He has an amputation of soft some of his toes bilaterally. No open wound detected. Neurological: The patient is awake, alert. He is following commands. He is answering my questions. He does have generalized weakness. Some tremors at the level of the upper extremities. LABORATORY: WBC 10.8, hemoglobin 10, hematocrit 32.3, platelets 292,000. Sodium 138. Potassium 3, chloride 90, bicarbonate 36, BUN 12, creatinine 0.6, glucose 164, calcium 8.7, phosphorus 3.4, magnesium is 1.6. ASSESSMENT AND PLAN: 1. Hypoxemic and hypercarbic respiratory failure due to a combination of fluid overload and bilateral lower lobe pneumonia due to Pseudomonas, we will continue with antibiotics per Infectious Disease Department. Pulmonary Department on board. Continue with incentive spirometer. 2. Possible osteomyelitis involving the left foot, aware. 3. Methicillin-resistant Staphylococcus aureus bacteremia. Continue with daptomycin infectious Disease Department on board. I will follow recommendations. 4. Type 2 diabetes. Initially, his hemoglobin A1c was 10.1. He came in with diabetic ketoacidosis which resolved. 5. Hypertension controlled. 6. Acute kidney injury, resolved. 7. Electrolyte imbalance including hypokalemia; I will replace it. 8. Hypomagnesemia and hypophosphatemia, resolved. 9. Alcohol use and abuse with possible alcohol withdrawal during admission, seems to be better. Continue with same management for now. He has been hospitalized for at least 30 days now. 10. Urinary retention. Urology Department already evaluated this patient and they will monitor this patient as an outpatient because there is a possibility of some kind of bladder problem/little mass there. 11. Encephalopathy resolved, but as per the nurse, he has been having some confusion on and off. cc: Flip Couch MD
--- NOTE | 2019-09-20 14:06 | INFECTIOUS DISEASE PROGRESS NO ---
DATE: 09/20/2019 PRESENT ILLNESS: The patient has the following infections: 1. Methicillin-resistant Staph aureus bacteremia. 2. Left foot osteomyelitis. 3. Pseudomonas pneumonia with the possibility of another organism also is causing the pneumonia, especially it could be methicillin-resistant Staph aureus. MEDICATIONS: This is day 15 of ceftazidime and day 7 of Zyvox which was stopped yesterday and vancomycin 1 day. PHYSICAL EXAMINATION: Vital Signs: Temperature is 98 degrees, pulse 60, respirations 12. Blood pressure 125/80. General: This is an ill-appearing middle-aged male he is in no acute distress. Head/eyes/ears/nose/throat: He can hear my spoken words and see near objects. He does not have any white patches in his mouth. Neck: The patient still is complaining of neck pain and he seems to be having pain anytime he moves his neck. Lungs: Clear to auscultation. Cardiovascular: Heart rate is regular. Abdomen: Soft and nontender. Extremities: The patient has a PICC in his right arm. The site is not erythematous or purulent. Neurologic: The patient is lethargic. He is fully arousable though and he can move his extremities. LABORATORY DATA/X-RAY: The patient's spine x-ray shows no evidence of acute bony abnormality. The patient's bone scan which was restricted to the neck showed no osteomyelitis in the cervical spine. ASSESSMENT AND PLAN: As mentioned above, the patient has a patient has a methicillin-resistant Staph aureus bacteremia, left foot osteomyelitis and Pseudomonas and possibly another organism causing pneumonia and the final problem is pain in his neck which he says it makes it very painful to move his neck. My plan is to continue the current antibiotics, namely vancomycin and ceftazidime. COMORBIDITIES: Patient is a diabetic and an alcoholic. cc: Jagjit Camargo MD
[2019-09-21] MEDS: NORCO-7.5 PO PRN ×3 (00:01→12:10)
[2019-09-21] MEDS: TAZIDIME 2 GM/NS 2 GM/100 ML IVPB IV SCH ×3 (00:01→17:05)
[2019-09-21] MEDS: MORPHINE IV PRN ×5 (00:55→22:10)
[2019-09-21] MEDS: VANCOMYCIN 2,000 MG in NS 500 ML IV SCH ×2 (01:17→15:41)
--- NOTE | 2019-09-21 03:32 | PULMONOLOGY PROGRESS NOTE ---
DATE: 09/20/2019 SUBJECTIVE: The patient has been moderately cooperative today. He refused lunch but did sit on the side of the bed and did perform OT treatments. He appears more oriented and conversant today. He has a better cough effort. OBJECTIVE: Vital Signs: The patient has been afebrile for the last 24 hours. Blood pressure 123/73, heart rate 71, respiratory rate 24, oxygen saturation 95% on 50% Venturi mask HEENT: Pupils are equal and reactive. Oropharynx appears clear. Neck: Supple. Chest: Reveals coarse rhonchi with decreased breath sounds right base. Cardiac: S1, S2. Abdomen: Soft. Extremities: Without edema. LABORATORIES: White blood count 10.88, hemoglobin 10.0, platelet count 292,000. Sodium 138, potassium 3.0, chloride 90, bicarbonate 36, BUN 12, creatinine 0.6. IMPRESSION: 1. A 53-year-old with pneumonia. 2. Osteomyelitis. 3. Acute hypoxemic respiratory failure. 4. Chronic hypercapnic respiratory failure. 5. Diabetes mellitus. PLAN: 1. Continue current antibiotics. 2. Continue bronchial hygiene. 3. Wean oxygen as tolerated. 4. Encourage physical therapy and mobilization of this patient. cc: Michael Goins MD
[2019-09-21] MEDS: ZYVOX 600 MG/D5W 600 MG/300 ML IVPB IV SCH (04:34)
[2019-09-21] MEDS: HUMALOG SUBQ SCH ×4 (06:48→21:28)
[2019-09-21 06:51] LABS: HEMATOCRIT 30.9 % (42.0-52.0); HEMOGLOBIN 9.8 g/dL (14.0-18.0); MCHC 31.7 g/dL (33-37); MCV 94.5 FL (81-99); MPV 9.2 FL (7.4-10.4); RBC 3.27 XMIL (4.7-6.1); RDW 13.8 % (11.5-14.5); WBC 7.8 X1000 (4.8-10.8)
[2019-09-21] MEDS: LOVENOX SUBQ SCH (06:52)
[2019-09-21 07:20] LABS: MAGNESIUM 1.6 mg/dL (1.5-2.7); PHOSPHORUS 3.6 mg/dL (2.7-4.5)
[2019-09-21 07:24] LABS: AGAP 11; ALB/GLOB RATIO 0.6; ALBUMIN 2.6 g/dL (3.5-5.0); ALKALINE PHOSPHATASE 197 U/L (32-122); BUN 14 mg/dL (8-22); CALCIUM 8.5 mg/dL (8.8-10.2); CHLORIDE 93 mmol/L (98-107); COSMO 276; CREATININE 1.1 mg/dL (0.7-1.2); ESTIMATED GFR > 60; GLUCOSE 155 mg/dL (70-104); GOT 24 U/L (10-34); GPT 8 U/L (10-44); POTASSIUM 2.9 mmol/L (3.5-5.1); SODIUM 136 mmol/L (136-145); TCO2 32 mmol/L (25-35); TOTAL PROTEIN 7.1 g/dL (6.3-8.3)
[2019-09-21] MEDS: LANTUS INSULIN SUBQ SCH (09:28)
[2019-09-21] MEDS: CATAPRES PO SCH ×2 (09:33→20:50)
[2019-09-21] MEDS: LOPRESSOR PO SCH ×2 (09:33→20:50)
[2019-09-21] MEDS: NORVASC PO SCH ×2 (09:33→20:50)
[2019-09-21] MEDS: MYCOSTATIN SUSP PO SCH ×5 (09:33→20:53)
[2019-09-21] MEDS: FLOMAX PO SCH ×2 (09:33→20:50)
[2019-09-21] MEDS: APRESOLINE PO SCH ×3 (09:56→20:50)
[2019-09-21] MEDS ORDERED: MAGNESIUM SULFATE 2 GM/S.W.I. 2 GM/50 ML IVPB IV ONE (10:01)
[2019-09-21] MEDS ORDERED: POTASSIUM CHLORIDE 40 MEQ/SWI 40 MEQ/100 ML IVPB IV ONE (10:01)
--- NOTE | 2019-09-21 12:54 | PROGRESS NOTE ---
DATE: 09/21/2019 SUBJECTIVE: No big changes compared with yesterday. Physical therapy working on this patient. He is still complaining of generalized weakness and also pain, shortness of breath. OBJECTIVE: Vital Signs: Temperature 97.8 degrees, pulse 67, respiratory rate 16, blood pressure 139/87, oxygen saturation 99% on a Ventimask. HEENT: Head is normocephalic, atraumatic. PERRLA. Neck: Supple. No JVD. No masses. Central trachea. Chest: Coarse breath sounds bilaterally with some crackles at the right base. Decreased breath sounds at the right side as well. Abdomen: Soft, nontender, nondistended. No hepatosplenomegaly. Extremities: There is 1+ lower extremity edema. No clubbing. No cyanosis. He has an amputation of some of his toes bilaterally. No open wound detected. Neurological: The patient is awake. He is following commands. He does have generalized weakness and some mild tremors at the level of the upper extremities. LABORATORY: WBC 7.8, hemoglobin 9.8, hematocrit 30.9, platelets 336,000. Sodium 136, potassium 2.9, chloride 93, bicarbonate 32, BUN 14, creatinine 1.1, glucose 155, calcium 8.5, AST 24, ALT 8, alkaline phosphatase 197, albumin 2.6. ASSESSMENT AND PLAN: 1. Hypoxemic and hypercarbic respiratory failure due to a combination of fluid overload and bilateral lower lobe pneumonia due to Pseudomonas. Continue with same management. Infectious Disease Department and Pulmonary Department on board. 2. Possible osteomyelitis involving the left foot. Aware. 3. Methicillin-resistant Staphylococcus aureus bacteremia. Continue with the same treatment. He has been placed on daptomycin. Infectious Disease Department on board, but it looks like he has been switched to vancomycin, also he is getting Zyvox. 4. Type 2 diabetes, initially his hemoglobin A1c was 10.1. He came in with diabetic ketoacidosis, which resolved. 5. Hypertension, controlled. 6. Acute kidney injury, resolved. 7. Electrolyte imbalance including hypokalemia. We will replace it. 8. Borderline low hypomagnesemia. I will replace the magnesium. 9. Alcohol use and abuse with possible alcohol withdrawal during admission. Seems to be better. Continue with same management for now. He has been hospitalized for at least 31 days. 10. Urinary retention. Urology Department already evaluated this patient at the beginning of this hospitalization, and probably he will need to follow up with them as an outpatient. 11. Encephalopathy, resolved, but it looks like he has been having some confusion on and off. cc: Flip Couch MD
[2019-09-22] MEDS: NORCO-7.5 PO PRN ×3 (00:22→20:58)
[2019-09-22] MEDS: TAZIDIME 2 GM/NS 2 GM/100 ML IVPB IV SCH ×3 (00:22→17:48)
--- NOTE | 2019-09-22 00:50 | PULMONOLOGY PROGRESS NOTE ---
DATE: 09/21/2019 SUBJECTIVE: The patient is awake, alert, and conversant. He reports he did stand briefly today and is working with physical therapy. The patient refused to have Kelly catheter removed earlier today by nursing staff. OBJECTIVE: Vital Signs: The patient has been afebrile for the last 24 hours. Blood pressure 133/71, heart rate 75, respiratory rate 18, oxygen saturation 97%. HEENT: Pupils are equal and reactive. Oropharynx appears clear. Neck: Supple. Chest: Reveals crackles in the right base. Cardiac: S1-S2. Abdomen: Soft with good bowel sounds. Extremities: Without edema. LABORATORIES: White blood count 7.8, hemoglobin 9.8, platelet count 336,000. Sodium 136, potassium 2.9, chloride 93, bicarbonate 32, BUN 14, creatinine 1.1. IMPRESSION: A 53-year-old with: 1. Pneumonia. 2. Acute hypoxemic respiratory failure. 3. Osteomyelitis. 4. Chronic hypercapnic respiratory failure. 5. Diabetes mellitus. RECOMMENDATION: 1. Continue current antibiotic regimen. 2. Continue bronchial hygiene. 3. Wean oxygen. 4. Follow up chest x-ray tomorrow. cc: Michael Goins MD
[2019-09-22] MEDS: MORPHINE IV PRN ×5 (04:19→22:17)
[2019-09-22] MEDS: LOVENOX SUBQ SCH (05:35)
[2019-09-22] MEDS: HUMALOG SUBQ SCH ×4 (06:38→21:46)
[2019-09-22] MEDS: LANTUS INSULIN SUBQ SCH (08:43)
[2019-09-22] MEDS: APRESOLINE PO SCH ×3 (08:43→21:04)
[2019-09-22] MEDS: MYCOSTATIN SUSP PO SCH ×4 (08:43→20:46)
[2019-09-22] MEDS: NORVASC PO SCH (08:43)
[2019-09-22] MEDS: LOPRESSOR PO SCH ×2 (08:43→20:46)
[2019-09-22] MEDS: FLOMAX PO SCH (08:43)
[2019-09-22] MEDS: CATAPRES PO SCH ×2 (08:43→20:46)
[2019-09-22 09:35] LABS: HEMATOCRIT 35.8 % (42.0-52.0); MCH 29.2 PG (27-31); MCHC 30.7 g/dL (33-37); MPV 9.9 FL (7.4-10.4); RBC 3.77 XMIL (4.7-6.1); WBC 8.95 X1000 (4.8-10.8)
--- NOTE | 2019-09-22 12:42 | Diag Imaging Result Doc PS360 ---
EXAM: CHEST-PORTABLE HISTORY: abnormal exam TECHNIQUE: Single view COMPARISON: 09/19/2019 FINDINGS: Poor inspiratory effort. No change in the right-sided PICC line. There are infiltrates in the right lung. These are less dense and less pronounced compared to the prior study. There is a small right pleural effusion. Left lung is unchanged. IMPRESSION: Interval improvement Electronically signed by Trent Moura 09/22/2019 12:39 PM
[2019-09-22 14:26] LABS: MAGNESIUM 1.8 mg/dL (1.5-2.7); PHOSPHORUS 3.3 mg/dL (2.7-4.5)
[2019-09-22 14:30] LABS: ALB/GLOB RATIO 0.5; ALBUMIN 2.6 g/dL (3.5-5.0); CREATININE 1.3 mg/dL (0.7-1.2); POTASSIUM 3.5 mmol/L (3.5-5.1); TOTAL BILIRUBIN 0.41 mg/dL (0.20-1.00); TOTAL PROTEIN 7.4 g/dL (6.3-8.3)
--- NOTE | 2019-09-22 21:17 | PROGRESS NOTE ---
DATE: 09/22/2019 SUBJECTIVE: No big changes compared with yesterday. He is no longer on a Ventimask. He is tolerating the nasal cannula. He is still complaining of generalized pain, especially neck, back, and leg. He has been refusing to remove the Kelly catheter as well. Chest x-ray showed infiltrate in the right lung, but they are not as dense as before. In general, he is getting better, but he is not cooperating too much. OBJECTIVE: Vital Signs: Temperature 98.3 degrees, pulse 66, respiratory rate 16, blood pressure 98/60, oxygen saturation 99 on 3 L of nasal cannula. HEENT: Head normocephalic, no trauma. PERRLA. Neck: Supple. No JVD. No masses. Central trachea. Chest: Coarse breath sounds at the bases with some crackles in the right base. Decreased breath sounds at the right base as well. Abdomen: Soft, nontender, nondistended. No hepatosplenomegaly. Extremities: Trace edema. No clubbing. No cyanosis. Neurological: This patient is alert, awake, and oriented x3. He does have generalized weakness. LABORATORY: WBC 8.9, hemoglobin 11, hematocrit 35.8, platelets 254,000. Glucose 117. ASSESSMENT AND PLAN: 1. Hypoxemic and hypercarbic respiratory failure due to a combination of fluid overload and bilateral lower lobe pneumonia due to Pseudomonas. Continue with same management. Infectious Disease Department and Pulmonary Department on board. 2. Possible osteomyelitis involving the left foot. Aware. 3. Methicillin-resistant Staphylococcus aureus bacteremia. Continue with same management. 4. Type 2 diabetes. Initially, his hemoglobin A1c was 10.1, and he came in with diabetic ketoacidosis, which resolved. 5. Hypertension. He has been having some episodes of borderline low blood pressure, sometimes in the 90s. I will decrease the dose of the clonidine, and I will remove the amlodipine for now. 6. Acute kidney injury. Resolved. 7. Electrolyte imbalance. Better. 8. Alcohol use and abuse with possible alcohol withdrawal during admission. Seems to be getting better. Continue with same management for now. 9. Urinary retention. This patient has been evaluated before by Urology Department for some other reasons. He has been refusing to remove the Kelly catheter. We removed that a couple of times before and he has been retaining urine. Probably, he needs to be seen by Urology Department as an outpatient. 10. Encephalopathy. Resolved. 11. Generalized weakness and physical deconditioning. This patient should go to a rehab center. We are working on that. At the beginning, he was accepting this possibility, but now I am not quite sure about it. We will discuss this more with him. cc: Flip Couch MD
[2019-09-23] MEDS: HALDOL IV PRN (00:06)
[2019-09-23] MEDS ORDERED: PNEUMOVAX 23 IM ONE (02:39)
[2019-09-23] MEDS: TAZIDIME 2 GM/NS 2 GM/100 ML IVPB IV SCH ×3 (04:04→16:49)
[2019-09-23] MEDS: MORPHINE IV PRN ×2 (04:11→14:33)
[2019-09-23] MEDS: LOVENOX SUBQ SCH (05:55)
--- NOTE | 2019-09-23 06:03 | INFECTIOUS DISEASE PROGRESS NO ---
DATE: 09/22/2019 PRESENT ILLNESS: The patient has the following infections: 1. Methicillin-resistant Staphylococcus aureus bacteremia. 2. Left foot osteomyelitis. 3. Pseudomonas pneumonia with the possibility of another organism present as well. MEDICATIONS: This is day 17 of ceftazidime; this is day 3 of vancomycin. Altogether, the patient has had approximately 17 days also of treatment with either vancomycin or Zyvox. PHYSICAL EXAMINATION: Vital signs: Temperature is 99 degrees, pulse 66, respirations 16, blood pressure 98/60. General: This is an ill-appearing, middle-aged male. He is in no acute distress. Head/eyes/ears/nose/throat: He can hear my spoken words and see near objects. He does not have any white coating on his tongue. Neck: The pain appears to be cleared. He can move his neck without seemingly having pain. Lungs: Clear to auscultation. Cardiovascular: Heart rate is regular. Abdomen: Soft and nontender. Extremities: Patient has a PICC in the right arm. The site is not erythematous or purulent. Both of the patient's distal feet are not erythematous or fluctuant or tender. LAB AND X-RAY: Chest x-ray shows improvement of the right lung infiltrate. Creatinine is 1.1. GFR is greater than 60. The patient's CBC shows a white count of 8950, hemoglobin 11, and platelet count 254,000. ASSESSMENT AND PLAN: The patient's bacteremia I think has cleared and his pneumonia appears to be clearing. I think the main infection left to treat is the left foot osteomyelitis. COMORBIDITIES: The patient is a diabetic and an alcoholic. cc: Jagjit Camargo MD
[2019-09-23] MEDS: HUMALOG SUBQ SCH ×4 (06:45→20:52)
[2019-09-23 07:45] LABS: HEMATOCRIT 31.9 % (42.0-52.0); HEMOGLOBIN 10.3 g/dL (14.0-18.0); MCH 29.6 PG (27-31); MCHC 32.3 g/dL (33-37); MCV 91.7 FL (81-99); MPV 9.8 FL (7.4-10.4); RBC 3.48 XMIL (4.7-6.1); RDW 13.7 % (11.5-14.5); WBC 9.58 X1000 (4.8-10.8)
[2019-09-23 07:58] LABS: ALB/GLOB RATIO 0.5; ALBUMIN 2.4 g/dL (3.5-5.0); CALCIUM 8.7 mg/dL (8.8-10.2); CREATININE 1.3 mg/dL (0.7-1.2); POTASSIUM 3.2 mmol/L (3.5-5.1); TOTAL BILIRUBIN 0.36 mg/dL (0.20-1.00); TOTAL PROTEIN 6.9 g/dL (6.3-8.3)
[2019-09-23] MEDS ORDERED: NS 1,000 ML IV SCH (08:00)
[2019-09-23] MEDS ORDERED: NS + KCL 20 MEQ 1,000 ML IV SCH (08:01)
[2019-09-23] MEDS ORDERED: VANCOMYCIN 1,500 MG in NS 250 ML IV SCH (10:00)
[2019-09-23] MEDS: NORCO-7.5 PO PRN ×2 (12:17→20:41)
[2019-09-23] MEDS: APRESOLINE PO SCH ×3 (12:24→20:52)
[2019-09-23] MEDS: LANTUS INSULIN SUBQ SCH (12:25)
[2019-09-23] MEDS: CATAPRES PO SCH ×2 (12:25→20:41)
[2019-09-23] MEDS: LOPRESSOR PO SCH ×2 (12:26→20:41)
[2019-09-23] MEDS: MYCOSTATIN SUSP PO SCH ×4 (12:26→20:41)
--- NOTE | 2019-09-23 15:54 | PROGRESS NOTE ---
DATE: 09/23/2019 SUBJECTIVE: This patient's creatinine increased for the past 3 days, today is about the same compared with yesterday. Creatinine is 1.3, I believe this is a combination of some low blood pressure and this patient also has not been eating too much, I will start this patient on gentle IV fluids, with potassium, his chloride level, and also potassium level is low, in the other hand, yesterday I stopped some of his blood pressure medication and I decreased the dose of some other medications as well and the blood pressure is much better. It has been between 120s and 130s. OBJECTIVE: Vital Signs: Temperature 97.8 degrees, pulse 70, respiratory rate 18, blood pressure 133/77, oxygen saturation 95% on 3 L of nasal cannula. HEENT: Head normocephalic, no trauma. PERRLA. Neck: Supple. No JVD. No masses. Central trachea. Chest: Coarse breath sounds at the bases with some crackles at the right base. Decreased breath sounds at the bases as well. Abdomen: Soft, nontender, nondistended. No hepatosplenomegaly. Extremities: Trace edema, no clubbing, no cyanosis. Neurological: The patient is awake, alert. He is oriented x3. He does have generalized weakness. LABORATORY: WBC 9.5, hemoglobin 10.3, hematocrit 31.9, platelets 197,000, sodium 137, potassium 3.2, chloride 96, bicarbonate 24, BUN 13, creatinine 1.3, glucose 108, calcium 8.7, AST 27, ALT 6, alkaline phosphatase 195, albumin 2.4. ASSESSMENT AND PLAN: 1. Hypoxemic and hypercarbic respiratory failure due to a combination of fluid overload and bilateral lower lobe pneumonia due to Pseudomonas, continue with same management. Infectious Disease Department and Pulmonary Department on board. 2. Possible osteomyelitis involving the left foot, aware. 3. Methicillin-resistant Staphylococcus aureus bacteremia. Continue with same treatment. Infectious Disease Department on board. 4. Type 2 diabetes. Initially, his hemoglobin A1c was 10.1. He came in with diabetic ketoacidosis, which resolved. 5. Hypertension. I have decreased the dose of some of his medication and I have stopped another one, blood pressure seems to be doing better. We will continue with same treatment. 6. Acute kidney injury. His creatinine has been increasing a little bit from the past 3 days, today is about the same compared with yesterday. I do believe it is a combination of low blood pressure and this patient also has not been eating or drinking too much. I will give him a little bit of fluid with potassium due to his hypokalemia. 7. Electrolyte imbalance, aware. Potassium is low as well as the chloride. He will receive normal saline with potassium, only one bag. 8. Alcohol use and abuse with possible alcohol withdrawal during admission. He seems to be better. Continue with same management for now. 9. Urinary retention. This patient has been evaluated before by Urology department for some other reasons. He has been refusing to remove the Kelly catheter. We removed the catheter a couple times before and he has been retaining. If the kidney function is better tomorrow, will start doing some bladder training and remove the Kelly to see how he does. 10. Encephalopathy, resolved. 11. Generalized weakness and physical deconditioning. 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 cc: Flip Couch MD
[2019-09-23] MEDS: OFIRMEV 1000 MG/ISOTONIC SOLN 1,000 MG/100 ML BOTTLE IV PRN (20:40)
--- NOTE | 2019-09-23 23:48 | PULMONOLOGY PROGRESS NOTE ---
DATE: 09/23/2019 SUBJECTIVE: The patient is lying in his bed with the lights off. He reports he is doing well. He reports he did get up earlier today. OBJECTIVE: Vital Signs: The patient has been afebrile for the last 24 hours. Blood pressure 156/79, heart rate 79, respiratory rate 17, oxygen saturation 93% on 3 L per nasal cannula. HEENT: Pupils are equal and reactive. Oropharynx appears clear. Neck: Supple. Chest: Reveals better air flow bilaterally. Cardiac: S1-S2. Abdomen: Soft. Extremities: Without edema. LABORATORIES: Sodium 137, potassium 3.2, chloride 96, bicarbonate 24, BUN 13, creatinine 1.3. White blood count 9.58, hemoglobin 10.3, platelet count 197,000. IMPRESSION: A 53-year-old with: 1. Pneumonia. 2. Acute hypoxemic respiratory failure. 3. Chronic hypercapnic respiratory failure. 4. Diabetes mellitus. 5. Osteomyelitis. PLAN: 1. Continue current antibiotic regimen. 2. Chest x-ray tomorrow. 3. Continue bronchial hygiene. 4. Encourage patient to work with physical therapy and become more mobile. 5. Wean oxygen as tolerated. cc: Michael Goins MD
[2019-09-24] MEDS: HALDOL IV PRN ×2 (00:40→13:01)
[2019-09-24] MEDS: TAZIDIME 2 GM/NS 2 GM/100 ML IVPB IV SCH ×3 (01:24→17:57)
[2019-09-24] MEDS: LOVENOX SUBQ SCH (05:49)
[2019-09-24] MEDS: NORCO-7.5 PO PRN ×2 (05:49→14:18)
--- NOTE | 2019-09-24 09:25 | Diag Imaging Result Doc PS360 ---
EXAM: CHEST-PORTABLE 09/24/2019 HISTORY: dyspnea TECHNIQUE: AP portable semiupright at 0917 COMMENT: There is cardiomegaly. There is increasing right pleural fluid. There is increased opacification of the right upper lobe and atelectasis versus pneumonia in the middle and lower lobe. IMPRESSION: Worsened right pleural effusion and pneumonia. Electronically signed by Ashok Logan 09/24/2019 9:23 AM
[2019-09-24 09:35] LABS: HEMATOCRIT 34.4 % (42.0-52.0); HEMOGLOBIN 10.7 g/dL (14.0-18.0); MCH 28.8 PG (27-31); MCHC 31.1 g/dL (33-37); MCV 92.7 FL (81-99); MPV 9.1 FL (7.4-10.4); RBC 3.71 XMIL (4.7-6.1); RDW 13.8 % (11.5-14.5); WBC 11.71 X1000 (4.8-10.8)
[2019-09-24 09:55] LABS: ALB/GLOB RATIO 0.6; ALBUMIN 2.7 g/dL (3.5-5.0); CALCIUM 9.2 mg/dL (8.8-10.2); CREATININE 1.4 mg/dL (0.7-1.2); POTASSIUM 3.4 mmol/L (3.5-5.1); TOTAL BILIRUBIN 0.42 mg/dL (0.20-1.00); TOTAL PROTEIN 7.3 g/dL (6.3-8.3)
[2019-09-24] MEDS: LOPRESSOR PO SCH ×2 (10:25→21:42)
[2019-09-24] MEDS: APRESOLINE PO SCH ×3 (10:25→21:41)
[2019-09-24] MEDS: CATAPRES PO SCH ×2 (10:25→21:43)
[2019-09-24] MEDS: MYCOSTATIN SUSP PO SCH ×4 (10:26→21:41)
[2019-09-24] MEDS: HUMALOG SUBQ SCH ×3 (10:34→17:40)
--- NOTE | 2019-09-24 11:05 | PROGRESS NOTE ---
DATE: 09/24/2019 SUBJECTIVE: This patient's creatinine has been increasing for the past few days. I discussed the case with the Infectious Disease Department. I have stop her vancomycin. As per Dr. Camargo he will evaluate this patient and probably stop the treatment. I will continue with ceftazidime. On the other hand this patient is not participating too much with physical therapy, he has been refusing for the past day to remove the Kelly catheter, but I will continue with this catheter for now since he is having an acute kidney problem. OBJECTIVE: Vital Signs: Temperature 98.4 degrees, pulse 80, respiratory rate 18, blood pressure 154/73, oxygen saturation is 95% on 3 L of nasal cannula. HEENT: Head normocephalic, atraumatic. PERRLA. Neck: Supple. No JVD. No masses. Central trachea. Chest: Coarse breath sounds at the bases with some crackles at the right base. Decreased breath sounds at the bases as well, especially the right side. Abdomen: Soft, nontender, nondistended. No hepatosplenomegaly. Extremities: Trace edema. No clubbing. No cyanosis. Neurological: Alert and oriented x3. He does have generalized weakness and some tremors. LABORATORY DATA: WBC 11.7, hemoglobin 10.7, hematocrit 34.4, platelets 318,000. Sodium 141, potassium 3.4, chloride 99, bicarbonate 28, BUN 13, creatinine 1.4, glucose 138, calcium 9.2. ASSESSMENT AND PLAN: 1. Hypoxemic and hypercarbic respiratory failure due to a combination of fluid overload and bilateral lower lobe pneumonias due to Pseudomonas, especially on the right side. The Infectious Disease Department and the Pulmonary Department following this patient. I will put on hold the vancomycin due to acute kidney injury. 2. Possible osteomyelitis involving the left foot. Aware. 3. Methicillin-resistant Staphylococcus aureus bacteremia. We will continue to monitor. I will follow the recommendations of the Infectious Disease Department. 4. Type 2 diabetes. Initially his hemoglobin A1c was 10.1. He came in with diabetic ketoacidosis, which resolved. 5. Hypertension. I have decreased the dose of some of his medications, and I have stopped all the medications for his blood pressure since the blood pressure was borderline low, now it seems to be better. 6. Acute kidney injury, probably this is a combination of some low blood pressure and is medication related. On the other hand this patient is not eating or drinking too much. I will put on hold the vancomycin. 7. Electrolyte imbalance. Aware. I will continue to replace. 8. Alcohol use and abuse with possible alcohol withdrawal during the admission. He seems to be better. 9. Urinary retention. We have removed the Kelly catheter a couple times and he is still having urinary retention. He has been refusing to remove the Kelly catheter now, I had a long conversation with this patient about that and I told him that we need to remove the Kelly catheter at some point due to the possibility of having infections and/or bladder problems, and he will likely end up with a permanent catheter. 10. Encephalopathy, resolved. 11. Generalized weakness and physical deconditioning. 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 cc: Flip Couch MD
[2019-09-24] MEDS: CUBICIN 500 MG in NS 100 ML IV SCH (14:17)
--- NOTE | 2019-09-24 16:23 | INFECTIOUS DISEASE PROGRESS NO ---
DATE: 09/24/2019 The patient's creatinine is going up a little bit and the GFR is decreasing. Therefore, I am going to discontinue vancomycin and start the patient on a combination of Zyvox p.o. and daptomycin IV. cc: Jagjit Camargo MD
[2019-09-24] MEDS: ZYVOX PO SCH ×2 (17:57→21:42)
--- NOTE | 2019-09-25 00:14 | PULMONOLOGY PROGRESS NOTE ---
DATE: 09/24/2019 SUBJECTIVE: The patient was lying on his right side with the curtains closed and the lights off. He has not been out of bed except for to be assisted to the bathroom. OBJECTIVE: Vital Signs: The patient has been afebrile for the last 24 hours. Blood pressure 154/73, heart rate 80, respiratory rate 18, oxygen saturation 95% on 3 L per nasal cannula. HEENT: Pupils are equal and reactive. Oropharynx appears clear. Neck: Supple. Chest: Reveals diminished breath sounds right base. Cardiac: Regular rate. Normal S1, normal S2. Abdomen: Soft. Extremities: Without edema. LABORATORIES: Chest x-ray reveals some increased effusion and pneumonia on the right. IMPRESSION: 1. A 53-year-old with pneumonia. 2. Acute hypoxemic respiratory failure. 3. Chronic hypercapnic respiratory failure. 4. Osteomyelitis. 5. Diabetes mellitus. DISCUSSION: A 53-year-old with problems outlined above. The patient has been difficult to motivate to get out of bed. It will be difficult to clear this pneumonia if he does not participate in physical rehabilitation. RECOMMENDATION: 1. Activity level was modified. I have requested that he get out of bed and ambulate at least 3 times per day. 2. Continue bronchial hygiene. 3. Antibiotics per Infectious Disease. 4. Wean oxygen as tolerated. 5. Two-view chest x-ray tomorrow. cc: Michael Goins MD
[2019-09-25] MEDS: NORCO-7.5 PO PRN ×3 (00:23→18:42)
[2019-09-25] MEDS: HUMALOG SUBQ SCH ×5 (00:25→21:54)
[2019-09-25] MEDS: TAZIDIME 2 GM/NS 2 GM/100 ML IVPB IV SCH ×3 (00:34→16:57)
[2019-09-25] MEDS: MUCOMYST 20% INH SCH ×3 (01:02→23:16)
[2019-09-25] MEDS: LOVENOX SUBQ SCH (06:19)
[2019-09-25 07:44] LABS: ALB/GLOB RATIO 0.6; ALBUMIN 2.9 g/dL (3.5-5.0); CALCIUM 8.8 mg/dL (8.8-10.2); CREATININE 1.4 mg/dL (0.7-1.2); POTASSIUM 3.3 mmol/L (3.5-5.1); TOTAL BILIRUBIN 0.51 mg/dL (0.20-1.00); TOTAL PROTEIN 7.6 g/dL (6.3-8.3)
[2019-09-25 07:46] LABS: BASO# 0.07 X1000 (0.0-0.2); BASO% 0.7 % (0.0-0.8); EOS# 0.65 X1000 (0.0-0.7); EOS% 6.2 % (0.0-10.0); HEMATOCRIT 34.2 % (42.0-52.0); HEMOGLOBIN 10.9 g/dL (14.0-18.0); LYMPH# 2.16 X1000 (1.2-3.4); LYMPH% 20.6 % (20.5-51.1); MCH 29.3 PG (27-31); MCHC 31.9 g/dL (33-37); MCV 91.9 FL (81-99); MONO% 9.5 % (1.7-9.3); MPV 10.1 FL (7.4-10.4); NEUT# 6.51 X1000 (1.4-6.5); PLT 254 X1000 (130-400); RBC 3.72 XMIL (4.7-6.1); RDW 13.9 % (11.5-14.5); WBC 10.49 X1000 (4.8-10.8)
[2019-09-25 07:48] LABS: MAGNESIUM 1.5 mg/dL (1.5-2.7); PHOSPHORUS 3.8 mg/dL (2.7-4.5)
[2019-09-25] MEDS: MYCOSTATIN SUSP PO SCH ×5 (10:25→21:55)
[2019-09-25] MEDS: CATAPRES PO SCH ×2 (10:26→21:54)
[2019-09-25] MEDS: ZYVOX PO SCH ×2 (10:26→21:54)
[2019-09-25] MEDS: APRESOLINE PO SCH ×3 (10:26→21:54)
[2019-09-25] MEDS: LOPRESSOR PO SCH ×2 (10:26→21:54)
[2019-09-25] MEDS: CUBICIN 500 MG in NS 100 ML IV SCH (12:03)
[2019-09-25] MEDS: HALDOL IV PRN (12:40)
[2019-09-25] MEDS ORDERED: KLOR-CON PO ONE (14:52)
[2019-09-25] MEDS ORDERED: MAGNESIUM SULFATE 2 GM/S.W.I. 2 GM/50 ML IVPB IV ONE (14:52)
--- NOTE | 2019-09-25 15:21 | Diag Imaging Result Doc PS360 ---
EXAM: CHEST-2 VIEWS INDICATION: abnormal exam TECHNIQUE: 2 views COMPARISON: 09/24/2019 FINDINGS: Right PICC line is in stable position. The right pleural effusion has decreased slightly in size. No new consolidation is identified. Cardiac silhouette is stable. IMPRESSION: Slight decrease in size of right pleural effusion. Electronically signed by Yehuda Loja 09/25/2019 3:19 PM
[2019-09-25] MEDS ORDERED: CATHFLO IV ONE (15:35)
[2019-09-25] MEDS ORDERED: STERILE WATER INJ. INJ ONE (15:35)
--- NOTE | 2019-09-25 17:35 | PROGRESS NOTE ---
DATE: 09/25/2019 SUBJECTIVE: This patient's creatinine has been stable for the past few days, elevated between 1.3 and 1.4. It looks like he is making more urine. I had a report that the urine output from yesterday to today was around 1650 mL, he is tolerating p.o. better, but he is not participating too much with physical therapy. OBJECTIVE: Vital Signs: Temperature 97.8 degrees, pulse 66, respiratory rate 16, blood pressure 158/83. Oxygen saturation 97% on 3 L of nasal cannula. HEENT: Head normocephalic, no trauma. PERRLA. Neck: Supple. No JVD. No masses. Central trachea. Chest: Decreased breath sounds at the bases with some crackles and crepitus at the right base. Abdomen: Soft, nontender, nondistended. No hepatosplenomegaly. Extremities: Trace edema. No clubbing. No cyanosis. Neurological: The patient is alert. He is oriented x3. He does have generalized weakness and some tremors. LABORATORY: WBC 10.4, hemoglobin 10.9, hematocrit 34.2, platelet 254,000. Sodium 135, potassium 3.3, chloride 94, bicarbonate 27, BUN 12, creatinine 1.4, glucose 145, calcium 8.8, AST 23, ALT 6, alkaline phosphatase 203, albumin 2.9. ASSESSMENT AND PLAN: 1. Hypoxemic and hypercarbic respiratory failure due to a combination of fluid overload and bilateral lower lobe pneumonia due to Pseudomonas, especially on the right side. Infectious Disease Department and Pulmonary Department following this patient. Vancomycin has been stopped due to acute kidney injury and he has been placed on Zyvox instead. 2. Possible osteomyelitis involving the left foot. Aware. 3. Methicillin-resistant Staphylococcus aureus bacteremia. We will continue to monitor. I will follow the recommendations of the infectious disease department. 4. Type 2 diabetes. His initial hemoglobin A1c was around 10.1. He came in with diabetic ketoacidosis, which resolved. 5. Hypertension. I have decrease some of his medications due to borderline low blood pressure. His blood pressure now seems to be more stable. We will monitor. 6. Acute kidney injury, probably a combination of some low blood pressure medication related, he seems to be making a decent amount of urine. We will monitor for now. 7. Electrolyte imbalance. Aware. Continue to replace especially magnesium and potassium. 8. Alcohol use and abuse with possible alcohol withdrawal during admission, seems to be better. 9. Urinary retention. We have removed the Kelly catheter a couple times and he is still having urinary retention. Once the kidney function is better, we will try to remove it again, he has been evaluated by Urology department at the beginning of this hospitalization. 10. Encephalopathy resolved. 11. Generalized weakness and physical deconditioning. 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 He is not cooperating too much with physical therapy. cc: Flip Couch MD
--- NOTE | 2019-09-25 19:21 | INFECTIOUS DISEASE PROGRESS NO ---
DATE: 09/25/2019 PRESENT ILLNESS: Mr. Gauthier is currently being treated for a pneumonia, as well as a left foot osteomyelitis. He previously had a methicillin-resistant Staphylococcus aureus bacteremia, for which he has completed treatment. MEDICATIONS: He is receiving Zyvox 600 mg by mouth every 12 hours and ceftazidime 2 grams IV every 8 hours. Today is day 20 of treatment with ceftazidime and either vancomycin or Zyvox. PHYSICAL EXAMINATION: Vital Signs: Temperature is 97.8 degrees, pulse rate 67, respiratory rate 14, blood pressure 158/83, and O2 saturation is 98% on 2.5 liters nasal cannula. General: This is an ill-appearing middle-aged gentleman. He is lying on his right lateral side in no acute distress. HEENT: Atraumatic, normocephalic. Oral mucous membranes are pink and moist. Conjunctivae are pink. Neck: Supple. Trachea is midline. Cardiovascular: Heart rate and rhythm are regular. Normal sinus rhythm on the monitor. Respiratory: Lung sounds are clear to auscultation in the upper lobes. Diminished in the mid and bases with mild rales to the right lower lobe. No work of breathing is noted. Abdomen: Soft, round, and nontender. Bowel sounds are active. Integumentary: Skin is warm and dry. There is a PICC line in place to the right upper arm. The site is without edema, erythema, or drainage. He has had previous toe amputations on the left, with intact, dry skin noted. LABORATORY AND X-RAY: Today his white count is 10.49, hemoglobin 10.9, platelet count 254,000. Creatinine is 1.4, GFR 53. Total bilirubin 0.51, AST 23, ALT 6, alkaline phosphatase 203. He previously grew a Pseudomonas in his sputum. No imaging reports today. However, yesterday his chest x-ray showed worsening right pleural effusion and pneumonia in the mid and lower lobes. ASSESSMENT AND PLAN: Mr. Gauthier is being treated with daptomycin for a left foot osteomyelitis, which we assume was related to methicillin-resistant Staphylococcus aureus due to his previous methicillin-resistant Staphylococcus aureus bacteremia. He has had daptomycin and/or vancomycin for approximately the last month, which he will need to continue for another month in order to treat his left foot osteomyelitis for 8 weeks. According to the chest x-ray yesterday, there is some worsening in his pneumonia, and he also has an acute kidney injury due to high vancomycin trough levels. Yesterday, he was changed from vancomycin to Zyvox, which we will continue, as well as the ceftazidime for the treatment of his Pseudomonas pneumonia with the possibility of other organisms. These plans have been discussed with and recommended by Dr. Camargo. COMORBIDITIES: The comorbidities for Mr. Gauthier include previous toe amputations due to osteomyelitis, diabetes mellitus, and alcohol abuse. Dictated by CARLOS Rocha for Jagjit Camargo MD cc: Jagjit Camargo MD [facility] INSANEFrancesca
--- NOTE | 2019-09-25 22:52 | PULMONOLOGY PROGRESS NOTE ---
DATE: 09/25/2019 SUBJECTIVE: The patient is awake, alert, and lying in bed. He has refused to work with physical therapy. He has a fair cough effort. OBJECTIVE: The patient has been afebrile for the last 24 hours. Blood pressure 151/62, heart rate 77, respiratory rate 20, oxygen 94% on 3 L per nasal cannula. HEENT: Pupils are equal and reactive. Oropharynx appears clear. Neck: Supple. Chest: Reveals diminished breath sounds right base. Cardiac: S1, S2. Abdomen: Obese and soft. Extremities: Reveal trace to 1+ peripheral edema. LABORATORIES: Chest reveals some improvement in the right lung base. White blood count 10.49, hemoglobin 10.9, platelet count 254,000. IMPRESSION: 1. A 53-year-old with pneumonia. 2. Acute hypoxemic respiratory failure. 3. Chronic hypercapnic respiratory failure. 4. Osteomyelitis. 5. Diabetes mellitus. PLAN: 1. Continue antibiotics 2. Encourage participation with PT 3. Wean O2 as tolerated 4. Continue bronchial hygiene. 5. We will obtain a CT scan of the thorax tomorrow to better evaluate the right base. cc: Michael Goins MD [facility]
[2019-09-26] MEDS: TAZIDIME 2 GM/NS 2 GM/100 ML IVPB IV SCH ×2 (01:00→09:59)
[2019-09-26] MEDS: NORCO-7.5 PO PRN ×2 (04:34→15:00)
[2019-09-26] MEDS: LOVENOX SUBQ SCH (06:39)
[2019-09-26] MEDS: HUMALOG SUBQ SCH ×3 (06:56→16:13)
[2019-09-26 08:33] LABS: HEMATOCRIT 32.6 % (42.0-52.0); HEMOGLOBIN 10.4 g/dL (14.0-18.0); MCH 29.5 PG (27-31); MCHC 31.9 g/dL (33-37); MCV 92.4 FL (81-99); MPV 9.4 FL (7.4-10.4); RBC 3.53 XMIL (4.7-6.1); RDW 14.1 % (11.5-14.5); WBC 15.56 X1000 (4.8-10.8)
[2019-09-26 08:46] LABS: MAGNESIUM 1.6 mg/dL (1.5-2.7); PHOSPHORUS 2.9 mg/dL (2.7-4.5)
[2019-09-26 09:40] LABS: ALB/GLOB RATIO 0.6; ALBUMIN 2.8 g/dL (3.5-5.0); CREATININE 1.4 mg/dL (0.7-1.2); POTASSIUM 3.5 mmol/L (3.5-5.1); TOTAL BILIRUBIN 0.47 mg/dL (0.20-1.00); TOTAL PROTEIN 7.2 g/dL (6.3-8.3)
[2019-09-26] MEDS: CATAPRES PO SCH (09:59)
[2019-09-26] MEDS: ZYVOX PO SCH (09:59)
[2019-09-26] MEDS: APRESOLINE PO SCH ×2 (09:59→15:00)
[2019-09-26] MEDS: LOPRESSOR PO SCH (09:59)
[2019-09-26] MEDS: MYCOSTATIN SUSP PO SCH ×2 (09:59→14:36)
[2019-09-26] MEDS: MUCOMYST 20% INH SCH (10:04)
[2019-09-26] MEDS: CUBICIN 500 MG in NS 100 ML IV SCH (12:11)
--- NOTE | 2019-09-26 12:18 | Diag Imaging Result Doc PS360 ---
CT THORAX W/O CONTRAST - 09/26/2019 INDICATION: Pneumonia COMPARISON: 09/15/2019 FINDINGS: There are shotty mediastinal lymph nodes stable from prior. Stable mild cardiomegaly. There is a right PICC line in good position. There is a small right and trace left pleural effusion. These have improved since prior. There is a small amount of ascites in the upper abdomen. There has been significant improvement in the bilateral infiltrates. There are still some heterogeneous patchy and nodular infiltrates worse in the upper lobes and in the right lower lobe. Airways are grossly clear. There are moderate degenerative changes of the spine. No acute or suspicious bony lesion. IMPRESSION: Overall improvement from prior. Small amount of ascites. This exam was performed using automated exposure control, adjustment of mA or kV according to patient size, and/or use of iterative reconstruction technique Electronically signed by Jacinto Avila 09/26/2019 12:15 PM
[2019-09-26 15:06] VITALS: BP 177/96
--- NOTE | 2019-09-26 19:26 | PROGRESS NOTE ---
DATE: 09/26/2019 SUBJECTIVE: This patient's BUN and creatinine has been stable for the past 4 days even though it is a little bit elevated compared with baseline, but the urine output has been good. It is reported 1.8 L in [address] a [address] scan of the chest today that showed an overall improvement from the prior chest CT and a small amount of ascites, I will wait for Pulmonary Department and Infectious Disease Department to evaluate this patient to see if this patient can be discharged to a rehab center this week. I do believe we already have placement for this patient. OBJECTIVE: Vital Signs: Temperature 97.9 degrees, pulse 78, respiratory rate 16, blood pressure 155/75. Oxygen saturation 95% on 2.5 L nasal cannula. HEENT: Head normocephalic, no trauma. PERRLA. Neck: Supple. No JVD. No masses. Central trachea. Chest: Decreased breath sounds at the bases with some crepitus mostly on the right base. Abdomen: Soft, nontender, nondistended. No hepatosplenomegaly. Extremities: Trace edema. No clubbing, no cyanosis. Neurological: The patient is alert. He is oriented x3. He does have generalized weakness and some tremors. LABORATORY: WBC 15.5, hemoglobin 10.4, hematocrit 32.6, platelet 356,000. Sodium 137, potassium 3.5, chloride 96, bicarbonate 26, BUN 10, creatinine 1.4, glucose 137, calcium 9, phosphorus 2.9, AST 20, ALT 5, alkaline phosphatase 187, albumin 2.8. ASSESSMENT AND PLAN: 1. Hypoxemic and hypercarbic respiratory failure due to a combination of fluid overload and bilateral lower lobe pneumonia due to Pseudomonas, especially on the right side. Infectious Disease Department following this patient as well as Pulmonary Department. We will continue with same management. 2. Possible osteomyelitis involving the left foot, aware. 3. Methicillin-resistant Staphylococcus aureus bacteremia. Continue with same management, I will continue following the recommendations of Infectious Disease Department. 4. Type 2 diabetes. His initial hemoglobin A1c was around 10.1. He came in with diabetic ketoacidosis, which resolved. 5. Hypertension. I will continue with same treatment. 6. Acute kidney injury. He is having a good urine output. For now, we will continue with same management. 7. Electrolyte imbalance. We will monitor. 8. Alcohol use and abuse with possible alcohol withdrawal during admission, better. 9. Urinary retention. We removed the Kelly catheter a couple times before and he had urinary retention. Once the kidney function is better and the creatinine is trending down, I will remove the Kelly. 10. Encephalopathy resolved. 11. Generalized weakness and physical deconditioning. 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 Once he is cleared from Infectious Disease Department and Pulmonary Department, I will send this patient to the rehab center. 12. CT scan of the chest showed overall improvement of his condition. I will wait for recommendations. cc: Flip Couch MD
--- NOTE | 2019-09-28 07:25 | DISCHARGE SUMMARY ---
ADMISSION DATE: 08/21/2019 DISCHARGE DATE: 09/26/2019 ADMISSION DIAGNOSES: 1. Suspected early diabetic ketoacidosis. 2. Possible alcohol withdrawals. 3. An abnormal CT showing prostate mass. 4. Diabetes type 2. 5. Hypertension. DISCHARGE DIAGNOSES: 1. Hypoxemic and hypercarbic respiratory failure due to a combination of fluid overload and bilateral lower lobe pneumonia due to Pseudomonas, especially on the right side. 2. Possible osteomyelitis involving the left foot. 3. Methicillin-resistant Staphylococcus aureus bacteremia. 4. Diabetes type 2. 5. Hypertension. 6. Acute kidney injury. 7. Alcohol use and abuse with possible alcohol withdrawal during admission, improved. 8. Urinary retention. 9. Encephalopathy resolved. 10. Generalized weakness and physical deconditioning. CONSULTATIONS: Were with Urology, Infectious Disease, Nephrology, Pulmonology, General Surgery. SUMMARY OF FINDINGS: This is a 53-year-old male who presented stating that he felt like he was having withdrawal symptoms from alcohol. States that he usually drinks about 6 to 10 beers daily. His laboratory data on arrival showed a possible early DKA. He had an elevated glucose and a CO2 was low. He had ketones in his urine. He had imaging that showed the possibility of a prostate mass. He was a poor historian, so he was admitted, has been here for over a month and was found to have an MRSA bacteremia. His DKA resolved. He had a hemoglobin A1c around 10 and so was considered a diabetes type 2 patient. He developed bilateral lower lobe pneumonia due to Pseudomonas. He was having issues with urinary retention. We had tried to remove the catheter a couple of times, but he kept having the urinary retention. Last night he told the nurse that he received a phone call from his sister and that his mom only had a few days to live, so he signed out AMA and called a taxi to come pick him up to carry him to his mom's house. He had not finished his antibiotic regimen for his bacteremia and Pseudomonas pneumonia. The patient was aware and still left AMA. A 35 minute discharge. Dictated by CARLOS Way for Flip Couch MD cc: CARLOS Way MD
== END 2019-09-26 16:45 | disposition left against medical advice (07) | DRG 637 ==
LOC: ED 00:41 → ICU 06:20 → SUATTDRO 06:20 → ICU 08-30 19:48 → 2N 09-08 10:45 → 1N 09-10 12:40 → 2N 09-13 13:37 → ICU 09-16 16:56 → 4N 09-18 14:51
PROVIDERS: ATTEND Internal Medicine